=== PATIENT | female | born 1985 ===

== ENCOUNTER 2021-12-27 11:49 | Outpatient (REF) | payer MEDICAID, SELFPAY ==
--- NOTE | ~2021-12-27 | XR_ITS ---
EXAMINATION: KNEE X-RAY CLINICAL INFORMATION: Pain COMPARISON: None TECHNIQUE: 4 views of each knee FINDINGS: Right: There is an intramedullary vanessa and single proximal screw in the visualized proximal tibial shaft. Bone alignment is normal. No acute fracture or dislocation is seen. There are degenerative changes of the tibial spines. There may be mild medial femoral tibial joint space narrowing. Joint spaces are otherwise normal. There is no joint effusion. Left: Bone alignment is normal. No fracture or dislocation is seen. Joint spaces are normal. There is no joint effusion. XR/XR knee RT 4V IMPRESSION: Right: Orthopedic hardware in the proximal tibia. Mild degenerative change at the medial femoral tibial joint and spurring of the tibial spines. Left knee: Unremarkable exam.
--- NOTE | ~2021-12-27 | XR_ITS ---
EXAMINATION: KNEE X-RAY CLINICAL INFORMATION: Pain COMPARISON: None TECHNIQUE: 4 views of each knee FINDINGS: Right: There is an intramedullary vanessa and single proximal screw in the visualized proximal tibial shaft. Bone alignment is normal. No acute fracture or dislocation is seen. There are degenerative changes of the tibial spines. There may be mild medial femoral tibial joint space narrowing. Joint spaces are otherwise normal. There is no joint effusion. Left: Bone alignment is normal. No fracture or dislocation is seen. Joint spaces are normal. There is no joint effusion. XR/XR knee LT 4V IMPRESSION: Right: Orthopedic hardware in the proximal tibia. Mild degenerative change at the medial femoral tibial joint and spurring of the tibial spines. Left knee: Unremarkable exam.
== END 2021-12-27 11:50 | disposition home or self-care (01) ==
LOC: HO.XRAY 11:49
PROVIDERS: PCP Registered Nurse; Visit Provider Registered Nurse
DX: M25.562 Pain in left knee (principal); M25.561 Pain in right knee
CPT/HCPCS: 73564

== ENCOUNTER 2022-06-10 07:05 | Emergency (ER) | payer MEDICAID, SELFPAY ==
[2022-06-10 07:36] VITALS: BP 114/72; PULSE 100; RESP 18; TEMP 36.2; O2SAT 98; BMI 21.1
[2022-06-10 08:29] LABS: Influenza A PCR NEGATIVE (Negative); Influenza B PCR NEGATIVE (Negative); Resp Syncy Virus RNA Qual PCR NEGATIVE (Negative); SARS COV2 PCR INHOUSE POSITIVE (Negative)
--- NOTE | 2022-06-10 09:39 | ED.GENADULT ---
HPI - General Adult General Chief complaint: General Medical Stated complaint: Headache/Back and neck pain Time Seen by Provider: 06/10/22 09:09 History of Present Illness HPI narrative: Patient with 2 complaints 1st complaint is her mom is sick with COVID took a test yesterday and it was positive and the patient over the weekend over the last 2 days has developed mild headache body aches fatigue, no shortness of breath no chest pain no nausea no vomiting Other complaint is chronic back pain for over a year, she does have some tramadol but it is not helping, pain radiates down the right leg with tingling but no loss of sensation no weakness no change to bowel or bladder no IV drug use no fever Related Data Previous Rx's Medication Instructions Recorded nirmatrelvir 300 mg (150 mg See Rx Instructions PO .COMPLEX 06/10/22 x2)-ritonavir 100 mg tablet,dose #30 ea pack(EUA) (Paxlovid) oxycodone 5 mg tablet 5 mg PO Q6H PRN pain #10 tabs 06/10/22 prednisone 20 mg tablet 60 mg PO DAILY 4 days #12 tabs 06/10/22 Allergies Allergy/AdvReac Type Severity Reaction Status Date / Time No Known Allergies Allergy Verified 06/10/22 07:29 [No Known Allergies*] [facility] Past Medical History Source: nursing notes reviewed Social History Social History Advance Directives: No Advance Directives Information Provided: No Physical Exam ED Vital Signs: Vital Signs - 24 hr 06/10/22 07:36 Temperature 97.1 F Pulse Rate 100 Respiratory Rate 18 Blood Pressure 114/72 Pulse Oximetry 98 Oxygen Delivery Method Room Air BMI result Body Mass Index 21.1 General appearance no acute distress comfortable Eyes no redness no discharge The nose no sinus tenderness The pharynx clear no redness swelling or exudate membranes moist Neck is supple Chest clear to auscultation bilateral Heart no murmur Abdomen soft nontender The back had bilateral lower lumbar spinal tenderness, skin of the back was normal, pain is easily reproduced with movement no focal bony tenderness no CVA tenderness Extremities range of motion x4 no edema no calf tenderness or swelling Neuro gait and balance are normal interaction comprehension and expression are normal, motor is 5/5 x4 patient can stand on toes walk on heels, sensation intact and symmetrical Course Course Course Narrative: Patient is positive for COVID, is well-appearing, no respiratory issues no shortness of breath, is prescribed paxlovid For her back pain she already has analgesics, I wrote for a few oxycodone for breakthrough pain and she had no neurologic deficit no change to bowel or bladder no fever no IV drug use and will follow with primary doctor Medical Decision Making Lab Data Labs: Lab Results 06/10/22 Range/Units 07:44 Influenza Type A (PCR) NEGATIVE (Negative) Influenza Type B (PCR) NEGATIVE (Negative) RSV RNA Qual (PCR) NEGATIVE (Negative) SARS-CoV-2 RNA (RT-PCR) POSITIVE A (Negative) Discharge Plan Discharge Clinical Impression: COVID-19, Back pain Patient Disposition: Home, Self-Care Additional Instructions: You tested positive for COVID so we are treating with the medication paxlovid for COVID For your chronic back pain your already taking Motrin and tramadol and a muscle relaxer so I added a few oxycodone which is a stronger narcotic to use sparingly and only if needed, as well as prednisone which is sometimes helpful for pain shooting down the leg to relieve inflammation around the nerve Most important follow with primary doctor for this back pain that is going on a year with pain shooting down the leg as you may need an MRI and a referral to a specialist Return any time any worse condition or any concerns Prescriptions: New prednisone 20 mg tablet 60 mg PO DAILY 4 Days Qty: 12 0RF Paxlovid (EUA) 300 mg (150 mg x 2)-100 mg tablets,dose pack See Rx Instructions .ROUTE .COMPLEX Qty: 30 0RF Rx Instructions: take TWO 150 mg tablets of nirmatrelvir with ONE 100 mg tablet of ritonavir twice daily for 5 days oxycodone 5 mg tablet 5 mg PO Q6H PRN (Reason: pain) Qty: 10 0RF Rx Instructions: Partial Fill upon patient request. Stand Alone Forms: Work/School Release Interventions: ED Discharge Assessment Last Done: 06/10/22 09:56 Discharge Date/Time: 06/10/22 09:57
== END 2022-06-10 09:57 | disposition home or self-care (01) ==
PROVIDERS: Emergency Provider Emergency Medicine; PCP Registered Nurse
DX: U07.1 COVID-19 (principal); R51.9 Headache, unspecified; M54.2 Cervicalgia; M54.50 Low back pain, unspecified; Z79.899 Other long term (current) drug therapy
CPT/HCPCS: 0241U; 99283

== ENCOUNTER 2022-07-30 13:30 | Outpatient (REF) | payer MEDICAID, SELFPAY | END 2022-07-30 13:31 | disposition home or self-care (01) | LOC: HO.XRAY 13:30 | PROVIDERS: PCP Registered Nurse; Visit Provider Family Medicine | DX: Z13.89 Encounter for screening for other disorder (principal) ==

== ENCOUNTER 2022-08-05 06:27 | Outpatient (REF) | payer MEDICAID, SELFPAY ==
--- NOTE | ~2022-08-05 | XR_ITS ---
EXAMINATION: XR CERVICAL SPINE CLINICAL INFORMATION: Neck pain COMPARISON: None available. TECHNIQUE: 5 views of the cervical spine, including bilateral oblique views, were obtained. FINDINGS: Bone alignment is normal. No fracture or dislocation. Normal disc spaces. Neural foramen are patent. Normal prevertebral soft tissues. XR/XR cervical spine 5V IMPRESSION: Unremarkable examination.
== END 2022-08-05 06:28 | disposition home or self-care (01) ==
LOC: HO.XRAY 06:27
PROVIDERS: PCP Family Medicine; Visit Provider Family Medicine
DX: M54.2 Cervicalgia (principal); G89.29 Other chronic pain
CPT/HCPCS: 72050

== ENCOUNTER 2022-12-25 07:51 | Emergency (ER) | payer MEDICAID, SELFPAY ==
--- NOTE | ~2022-12-25 | XR_ITS ---
EXAMINATION: XR HUMERUS, LEFT CLINICAL INFORMATION: Trauma, hit upper arm with cabinet. COMPARISON: None available. TECHNIQUE: AP and lateral views of the left humerus. FINDINGS: The left shoulder and elbow are normal. The glenohumeral and acromioclavicular joints are normal. Bones and soft tissues are unremarkable. No acute fracture or malalignment. No radiopaque foreign body. XR/XR humerus LT IMPRESSION: Normal left humerus.
--- NOTE | ~2022-12-25 | CT_ITS ---
EXAMINATION: CT HEAD WITHOUT CONTRAST CLINICAL INFORMATION: Hit on head with cabinet. Headache. COMPARISON: None available. TECHNIQUE: Contiguous axial imaging was performed from the skull base to vertex without intravenous administration of contrast. This CT examination was performed using dose optimization techniques as appropriate, variously including the following: *Automated exposure control *Adjustment of mA and/or kV according to patient size (this includes techniques or standardized protocols for targeted exams where dose is matched to indication/reason for exam; i.e. extremities or head) *Use of iterative reconstruction technique DLP: 485 mGy-cm FINDINGS: The brain parenchyma has normal attenuation. The river-white matter differentiation is well preserved. No evidence of an acute major vascular territory infarction. No intracranial hemorrhage, extra-axial fluid collection, focal mass effect or midline shift. The ventricles have normal size and configuration; no hydrocephalus. The brainstem and cerebellum have a normal appearance. The cerebellar tonsils are in normal position. No evidence of calvarial fracture. The visualized paranasal sinuses, mastoid air cells and middle ear cavities are well aerated. The partially visualized orbits and globes are unremarkable. The temporomandibular joints are normal. CT/CT head/brain wo IV con IMPRESSION: No acute intracranial pathology.
[2022-12-25 08:16] VITALS: BP 125/86; PULSE 83; RESP 16; TEMP 36.3; O2SAT 100; BMI 20.8
--- NOTE | 2022-12-25 10:08 | PC.NURSE ---
Patient placed in [facility] Room 2. Amb with steady gait. Neuros intact. PERRL. Good CMS to LUE (small bruise noted on upper outer aspect of arm). Appears well.
--- NOTE | 2022-12-25 10:31 | ED_ITS ---
HPI - Head Injury General Chief complaint: Head Injury Stated complaint: Head inj 12/24 Time Seen by Provider: 12/25/22 10:02 History of Present Illness HPI Narrative: 37 year old female with history of chronic back pain on Tramadol presents to ER after injury last night where cabinet fell onto her head and left arm. Reports that she was cooking and reached into cabinet when it fell down on her. Reports one scrape on her forehead that she applied neosporin to. Reports headache, left-sided neck pain, and proximal left upper extremity pain. Reports neck pain with flexion and rotation to the left. Denies any loss of consciousness at time of injury. Denies dizziness, confusion, photophobia. Denies fevers, chills, chest pain, dyspnea or shortness of breath, nausea, vomiting. Denies any blood thinners. MD Complaint: head injury and head pain Onset (ago): day(s) Mechanism of Injury: other (Cabinet fell onto head and left upper extremity. ) Place: home Loss of Consciousness: no Location of injury: frontal (Abrasion to left frontal lobe. ) Other Injuries: laceration Associated symptoms: neck pain Related Data Previous Rx's Medication Instructions Recorded nirmatrelvir 300 mg (150 mg See Rx Instructions PO .COMPLEX 06/10/22 x2)-ritonavir 100 mg tablet,dose #30 ea pack (Paxlovid) oxycodone 5 mg tablet 5 mg PO Q6H PRN pain #10 tabs 06/10/22 prednisone 20 mg tablet 60 mg PO DAILY 4 days #12 tabs 06/10/22 naproxen 500 mg tablet 500 mg PO BID PRN pain #20 tabs 12/25/22 Allergies Allergy/AdvReac Type Severity Reaction Status Date / Time No Known Allergies Allergy Verified 06/10/22 07:29 [No Known Allergies*] Review of Systems Review of Systems: Yes all other systems are reviewed and are negative PMFSH Social History Social History Advance Directives: No Advance Directives Information Provided: No Physical Exam Vital Signs: Vital Signs: Last Vital Signs Temp 97.4 F 12/25/22 08:16 Pulse 83 12/25/22 08:16 Resp 16 12/25/22 08:16 BP 125/86 12/25/22 08:16 Pulse Ox 100 12/25/22 08:16 O2 Del Method Room Air 12/25/22 08:16 BMI result Body Mass Index 20.8 Const: General: cooperative, healthy appearing, comfortable and no acute distress Nutritional Appearance: average body habitus Orientation/consciousness: patient oriented x3 HEENT: Head: Yes abrasion (Abrasion to left frontal lobe. Macerated but not actively bleeding. ), No Echeverria's sign, No contusion and No hematoma Neck: Neck: Yes full ROM Chest: Chest palpation & inspection: localized rib tenderness with anteroposterior compression (Point tenderness to left midaxillary line along 4- 5th ribs. ) Resp: Effort & Inspection: normal respiratory effort and able to speak in complete sentences Auscultation: clear to auscultation bilaterally Cardio: Rate: regular rate Rhythm: regular rhythm Peripheral pulses: radial pulses present Neuro: General: patient oriented x3 Extrem: Left upper extremity: full ROM and shoulder/upper arm (Mild bruising to proximal LUE. TTP along humerus, acromion. No crepitus.) Medical Decision Making Medical Decision Making MDM Narrative: 37 year old female with history of chronic back pain on Tramadol presents after injury last night where cabinet fell onto head and left upper extremity. On physical exam, cranial nerves are intact. There is tenderness to palpation along left humerus and acromion, but no crepitus and she has full active ROM. Some pain with flexion and left rotation of neck but no limitation in ROM. Abrasion to left frontal lobe, macerated but not actively bleeding. Head CT and humerus X-ray show no acute abnormality. Patient is safe to be discharged. She should continue to rest and apply neosporin to the abrasion on her forehead. May continue pain control with Tramadol, Tylenol, ice packs. Differential Diagnosis Differential Diagnoses: The differential diagnosis associated with the presentation includes Skin abrasion, concussion, left humeral fracture, left rib fracture, intracranial hemorrhage. Independent Interpretation I performed an independent interpretation of an: Plain X-Ray and CT Scan Interpretation: I have review the patient's imaging and I am in agreement with the radiologist's readings. CT head without edema or bleed XR humerus without fx or dislocation Radiology Impression Discussion of test interpretation with radiology: I have reviewed the radiologist's reading. Radiologist Impression: EXAMINATION: XR HUMERUS, LEFT CLINICAL INFORMATION: Trauma, hit upper arm with cabinet. COMPARISON: None available.? TECHNIQUE: AP and lateral views of the left humerus. FINDINGS: The left shoulder and elbow are normal. The glenohumeral and acromioclavicular joints are normal. Bones and soft tissues are unremarkable. No acute fracture or malalignment. No radiopaque foreign body.? XR/XR humerus LT IMPRESSION: Normal left humerus. EXAMINATION: CT HEAD WITHOUT CONTRAST CLINICAL INFORMATION: Hit on head with cabinet. Headache.? COMPARISON: None available. TECHNIQUE: Contiguous axial imaging was performed from the skull base to vertex without intravenous administration of contrast. This CT examination was performed using dose optimization techniques as appropriate, variously including the following: *Automated exposure control *Adjustment of mA and/or kV according to patient size (this includes techniques or standardized protocols for targeted exams where dose is matched to indication/reason for exam; i.e. extremities or head) *Use of iterative reconstruction technique DLP: 485 mGy-cm FINDINGS: The brain parenchyma has normal attenuation. The river-white matter differentiation is well preserved. No evidence of an acute major vascular territory infarction. No intracranial hemorrhage, extra-axial fluid collection, focal mass effect or midline shift. The ventricles have normal size and configuration; no hydrocephalus. The brainstem and cerebellum have a normal appearance. The cerebellar tonsils are in normal position. No evidence of calvarial fracture. The visualized paranasal sinuses, mastoid air cells and middle ear cavities are well aerated. The partially visualized orbits and globes are unremarkable. The temporomandibular joints are normal. ? CT/CT head/brain wo IV con IMPRESSION: No acute intracranial pathology. Prescription Management I considered prescription management with: Pain Medication Chronic Conditions Patient?s care impacted by: Other (chronic back pain on chronic opiates) Critical Care Time Critical Care Time Critical Care Time: No Discharge Plan Discharge Clinical Impression: Closed head injury, Contusion of left shoulder Patient Disposition: Home, Self-Care Instructions: Head Injury (ED), Shoulder Pain (ED) Additional Instructions: Your CT scan was normal Your x-ray was normal Rest and use ice to the area several times a day as needed for pain. Take the prescribed anti-inflammatory pain medication as needed. Also recommend Tylenol 975 mg every 8 hours as needed for pain. Follow-up with your doctor as needed. If you develop new or worsening symptoms call 911 or come back to the ER for further evaluation. Prescriptions: New naproxen 500 mg tablet 500 mg PO BID PRN (Reason: pain) Qty: 20 0RF No Action prednisone 20 mg tablet 60 mg PO DAILY 4 Days Qty: 12 0RF Paxlovid 300 mg (150 mg x 2)-100 mg tablets,dose pack See Rx Instructions .ROUTE .COMPLEX Qty: 30 0RF Rx Instructions: take TWO 150 mg tablets of nirmatrelvir with ONE 100 mg tablet of ritonavir twice daily for 5 days oxycodone 5 mg tablet 5 mg PO Q6H PRN (Reason: pain) Qty: 10 0RF Rx Instructions: Partial Fill upon patient request. Referrals: [place] [Primary Care Provider] - Stand Alone Forms: Work/School Release
[2022-12-25 11:26] VITALS: BP 103/78; PULSE 69; RESP 18; O2SAT 99
== END 2022-12-25 11:31 | disposition home or self-care (01) ==
PROVIDERS: Emergency Provider Emergency Medicine
DX: S09.8XXA Other specified injuries of head, initial encounter (principal); S00.81XA Abrasion of other part of head, initial encounter; S40.022A Contusion of left upper arm, initial encounter; W20.8XXA Other cause of strike by thrown, projected or falling object, initial encounter; Y93.89 Activity, other specified; Y92.010 Kitchen of single-family (private) house as the place of occurrence of the external cause; Y99.9 Unspecified external cause status
CPT/HCPCS: 70450; 73060; 99284

== ENCOUNTER 2023-01-10 11:52 | Outpatient (REF) | payer MEDICAID, SELFPAY ==
[2023-01-12 11:20] LABS: BV Int Neg Control Negative (Negative); BV Int Pos Control Positive (Positive)
== END 2023-01-10 11:53 | disposition home or self-care (01) ==
LOC: HO.CHCLNP 11:52
PROVIDERS: Visit Provider Registered Nurse
DX: N94.9 Unspecified condition associated with female genital organs and menstrual cycle (principal)
CPT/HCPCS: 87480; 87510; 87660

== ENCOUNTER 2024-02-06 07:35 | Outpatient (REF) | payer MEDICAID, SELFPAY ==
[2024-02-06 07:59] LABS: MANUAL DIFF FLAG NO
[2024-02-06 08:45] LABS: Basophils Percent Auto 0.8 % (0-2); Eosinophils Absolute Auto 0.1 X10*3/uL (0.0-0.4); Hematocrit 38.3 % (37.0-47.0); Hemoglobin 12.4 g/dl (12.0-16.0); Imm Gran Abs Auto 0.01 X10*3/uL (0.00-0.03); Imm Gran Pct Auto 0.2 % (0.0-0.4); Lymphocytes Absolute Auto 1.4 X10*3/uL (1.2-4.9); Lymphocytes Percent Auto 28.1 % (20-40); Mean Corpuscular HGB Conc 32.4 g/dl (31.0-35.0); Mean Corpuscular Hemoglobin 30.2 pg (27.0-33.0); Mean Corpuscular Volume 93.2 fL (80.0-98.0); Mean Platelet Volume 10.3 fL (9.4-12.3); Monocytes Absolute Auto 0.4 X10*3/uL (0.1-1.2); Monocytes Percent Auto 7.9 % (2-11); Platelet Count 295 X10*3/uL (160-400); Red Blood Count 4.11 X10*6/uL (4.20-5.50); Red Cell Distribution Width 13.1 % (11.0-16.0); White Blood Count 4.9 X10*3/uL (4.8-10.8)
[2024-02-06 08:56] LABS: Estimated Average Glucose 94 mg/dL; Hemoglobin A1c % 4.9 % (<6.0)
[2024-02-06 09:31] LABS: Alanine Aminotransferase 9 U/L (0-31); Albumin Level 4.1 g/dL (3.5-5.0); Alkaline Phosphatase 59 U/L (39-117); Anion Gap 10 (12-20); Aspartate Amino Transferase 17 U/L (5-31); Bilirubin Total 0.7 mg/dL (0.0-1.0); Blood Urea Nitrogen 5 mg/dL (9-16); Calcium 8.6 mg/dL (8.4-10.2); Carbon Dioxide 26 mmol/L (22-29); Chloride 109 mmol/L (96-108); Cholesterol 126 mg/dL (<200); Estimated Glomerular Filt Rate > 60; Glucose Random 84 mg/dL (60-115); HDL Cholesterol 56 mg/dL (>40); Iron 104 mcg/dL (30-160); LDL Cholesterol Calculated 64 mg/dL (<100); Percent Iron Saturation 47 % (15-50); Potassium 4.1 mmol/L (3.3-5.1); Sodium 141 mmol/L (135-145); Total Iron Binding Capacity 219 mcg/dL (228-428); Total Protein 6.9 g/dL (6.5-8.0); Triglycerides 31 mg/dL (<150); Unsaturated Iron Binding 115 ug/dL
[2024-02-06 09:34] LABS: Ferritin 46 ng/mL (10-122); TSH reflex Free T4 0.51 uIU/mL (0.32-4.0); Vitamin D 25-OH Total 5.5 ng/mL (>30)
[2024-02-06 10:53] LABS: CT PCR NOT DETECTED (Not Detect.); NG PCR NOT DETECTED (Not Detect.)
[2024-02-06 11:00] LABS: HBS Num1 46.51 mIU/mL (0-7.99); HBc Num1 0.07 S/CO (0.00-0.79); HBsAGNum1 0.33 S/CO (0.00-0.99); HIV AB/AG Nonreactive (Nonreactive); HIV Num 1 0.04 S/CO (0.00-0.99); Hepatitis B Core Antibody Nonreactive (Nonreactive); ~Hepatitis B Surface Antibody REACTIVE (Nonreactive)
[2024-02-06 11:01] LABS: Hepatitis B Surface Antigen Negative (Negative)
[2024-02-09 13:24] LABS: HCV Log PCR <1.18 NOT DETECTED Log IU/mL (NOT DETECTED); HepC Viral Load <15 NOT DETECTED IU/mL (NOT DETECTED)
[2024-02-09 13:39] LABS: RPR Rapid Plasma Reagin NON-REACTIVE (NON-REACTIVE)
== END 2024-02-06 07:36 | disposition home or self-care (01) ==
LOC: HO.LAB 07:35
PROVIDERS: PCP Registered Nurse; Visit Provider Registered Nurse
DX: Z00.00 Encounter for general adult medical examination without abnormal findings (principal)
CPT/HCPCS: 80053; 80061; 82306; 82728; 83036; 83540; 84443; 85025; 86592; 86704; 86706; 87340; 87389; 87491; 87522; 87591

== ENCOUNTER 2024-03-10 08:46 | Outpatient (AMB) | payer MEDICAID, SELFPAY ==
[2024-03-10 09:26] VITALS: BP 124/74; PULSE 106; O2SAT 98; BMI 21.7
--- NOTE | 2024-03-10 09:26 | MHC.OFFVIS ---
Vital Signs 03/10/24 09:26 Height 5 ft Weight 111 lb BMI 21.7 BP 124/74 Blood Pressure Location Lt brachial Position Sitting Pulse 106 H Pulse Source Pulse Oximeter Pulse Oximetry (%) 98 Oxygen Delivery Method Room Air Intake Visit Reasons: Scoliosis Allergies No Known Allergies [No Known Allergies*] Allergy (Verified 03/10/24 09:27) Medication List - Last Reconciled 03/10/24 by Arcelia Tierney cyclobenzaprine 5 mg PO TID PRN lidocaine 5% 1 patch topical DAILY medroxyprogesterone 150 mg IM [id number] naloxone 4 mg/actuation 4 mg intranasal Q2M PRN tramadol 50 mg PO BID PRN varenicline (Chantix) 1 mg PO BID HPI Comments Details: Ronnie is a very pleasant 38-year-old female who presents to the office today for evaluation management of her chronic back pain Patient endorses upper lower and middle back pain, she reports pain to her ?spine?. Her most significant area of pain is the thoracic spine, where her bra line crosses. She would like to focus on this area today She has been suffering with this pain for 3 years, denies inciting injury, fall, trauma. She attributes to multiple years of physical labor and heavy lifting at work She describes her most significant area of pain to her middle thoracic spine where her bra goes across her back. Pain is worse with repetitive use of her arms, tender to palpation, worse with standing too long or sitting too long Pain today is rated a 7/10, constant Denies numbness tingling weakness of the upper extremities Patient has exhausted conservative therapy including NSAIDs, Tylenol, muscle relaxers, prescription medications. Currently prescribed cyclobenzaprine and tramadol by her primary care doctor which provides her ?some relief ? She denies a history of gabapentin or Lyrica use Was prescribed duloxetine in the past, no longer taking it. States that it upset her stomach. Denies any recent imaging of her thoracic or lumbar spine She completed physical therapy several months ago, states that it provided short-term relief but as soon as physical therapy ended her pain returned Was seeing a chiropractor but this also provided her only short-term relief. In terms of muscle damage condition is described as sharp, shooting, stabbing, aching, pulsing, throbbing, cramping, dull, sore, shooting, jumping, tugging, pulling, tiring, spreading, tight, hot burning, stabbing, tingling Pain is negatively impacting patient's enjoyment of life, general activity, sleep, mood, ability to perform activities of daily living Denies current use of anticoagulants Denies implantable devices, pacemaker defibrillator Currently smoking 1/2 pack a day Endorses current use of daily marijuana [facility] Medical History (Updated 03/10/24 @ 15:47 by Sury Julian, CATERING SALES MANAGER, DIRECTOR OF PLACEMENT) Major depression Review of Systems Const All systems reviewed & are unremarkable except as noted in HPI and below Physical Exam Vital Signs: Last Vital Signs Pulse 106 H 03/10/24 09:26 BP 124/74 03/10/24 09:26 Pulse Ox 98 03/10/24 09:26 Oxygen Delivery Method Room Air 03/10/24 09:26 BMI result Body Mass Index 21.7 General: awake, alert, oriented. Answers questions appropriately. Fully engaged in examination. Skin: warm, dry, intact HEENT: Normocephalic. Hearing intact. Cardiac: External chest normal in appearance. Respiratory: No cough, audible wheezing or stridor. Abdomen: without gross distension. MS: No obvious swelling or deformities. Able to stand on bilateral tiptoes and bilateral heels.? Able to transition from sit to stand unassisted. Ambulates with bilaterally normal heel strike and toe off Tenderness to palpation thoracic vertebrae and paraspinal muscles. Tenderness to palpation middle upper and lower trapezius Tenderness to palpation midline lumbar vertebrae and lumbar paraspinal muscles Neurological: Oriented to person, place, time and situation. Thought process intact. No gait abnormalities appreciated. Psychiatric: Appropriate mood and affect. Good judgment and insight. Results Reviewed Results Reviewed: 08/05/2022 XR/XR cervical spine 5V FINDINGS: Bone alignment is normal. No fracture or dislocation. Normal disc spaces. Neural foramen are patent. Normal prevertebral soft tissues. IMPRESSION: Unremarkable examination. Assessment & Plan Assessment & Plan (1) Thoracic back pain: Code(s): M54.6 - Pain in thoracic spine Category: Medical (2) Myofascial low back pain: Code(s): M54.50 - Low back pain, unspecified Category: Medical (3) Lumbar spondylosis: Code(s): M47.816 - Spondylosis without myelopathy or radiculopathy, lumbar region Category: Medical (4) Scoliosis: Code(s): M41.9 - Scoliosis, unspecified Category: Medical Plan X-rays ordered for evaluation Continue with cyclobenzaprine and tramadol as prescribed by primary care doctor New prescription for gabapentin 100 mg p.o. 3 times daily as needed Patient has exhausted conservative therapy including muscle relaxers, prescription medications, nonsteroidal anti-inflammatory medications, [id number] medications, 10s unit all without improvement of her symptoms Will schedule for fluoroscopy bilateral diagnostic T8 T9-T10 MBB local anesthetic All questions and concerns were answered, patient agrees with the plan. Follow up after injections, sooner if needed Orders: Orders XR thoracic spine 3V Today M54.6 - Pain in thoracic spine XR lumbar spine 4V min Today M54.50 - Low back pain, unspecified Medications: New gabapentin 100 mg PO TID 30 days 90 caps 0RF Coding Level of Care Code New Pt Level 4 (42282) Complex EM visit Add On G2211 Diagnoses Thoracic back pain M54.6 Myofascial low back pain M54.50 Lumbar spondylosis M47.816 Scoliosis M41.9
== END 2024-03-10 09:52 | disposition home or self-care (01) ==
PROVIDERS: PCP Registered Nurse; Visit Provider Registered Nurse Emergency
DX: M54.6 Pain in thoracic spine (principal); M54.50 Low back pain, unspecified; M47.816 Spondylosis without myelopathy or radiculopathy, lumbar region; M41.9 Scoliosis, unspecified
CPT/HCPCS: 99204

== ENCOUNTER → 2024-03-10 08:46 | Outpatient (BNVA) | payer MEDICAID, SELFPAY | PROVIDERS: PCP Registered Nurse; Visit Provider Registered Nurse Emergency | DX: M54.6 Pain in thoracic spine (principal); M54.50 Low back pain, unspecified; M47.816 Spondylosis without myelopathy or radiculopathy, lumbar region; M41.9 Scoliosis, unspecified | CPT/HCPCS: 99212 ==

== ENCOUNTER 2024-03-25 10:21 | Outpatient (REF) | payer MEDICAID, SELFPAY | END 2024-03-25 10:22 | disposition home or self-care (01) | LOC: HO.XRAY 10:21 | PROVIDERS: PCP Registered Nurse; Visit Provider Registered Nurse Emergency | DX: M54.6 Pain in thoracic spine (principal); M54.50 Low back pain, unspecified | CPT/HCPCS: 72072; 72110 ==

== ENCOUNTER 2024-04-07 09:15 | Outpatient (RCR) | payer MEDICAID, SELFPAY ==
--- NOTE | 2024-03-26 11:41 | MHC.OT.EP ---
[address] [phone] Occupational Therapy Plan of Care Patient Name: Ronnie Funes Date of Evaluation: 03/26/24 Diagnosis: Left hand pain Pain Location: Mild resting through thumb Tenderness at left CMC Pain Score: 3 Pain Scale Used: Numeric (0 - 10) Aggravating Factors: Movement, gripping, object manipulation, holding phone/scrolling with left thumb Alleviating Factors: Frequent breaks, rubbing with [place] Assessment: 38 yo female presents with left hand pain for about a month, saw PCP regarding pain and has been referred to OT for further assessment. She is seen this morning for initial eval, reports some relief since changing jobs a week ago, but still has some pain and tenderness through left thumb and base, consistent with overuse. She also reports extensive time spent on phone and has pain w/ gripping and scrolling. We have educated Ronnie on possible causes of pain including overuse at work and with phone, and started her with home program for joint protection, activity modification and home exercise program to strength and promote CMC stability. I anticipate she will do well w/ brief course of hand therapy. Frequency and Duration: The patient will be seen 2x/wk for 2 weeks Short Term Goals: Ind w/ HEP Ind w/ use of heat modalities for comfort Left gross grasp >40lb Pt to report good use of modifications for phone use Retirement Goals: same as above Treatment Plan: Therapeutic Exercise Therapeutic Activity Home Exercise Program Splinting Patient Education Edema Control ADL Training Paraffin Fluidotherapy MHP Joint Mobilization Soft Tissue Mobilization Kinesiotaping Electronically Signed By: Samara Garcia OTR/L CHT Please Sign and return to therapist. Thank you once again for your referral.
--- NOTE | 2024-05-06 11:52 | MHC.OT.DC ---
[address] [phone] F: [phone] Occupational Therapy Discharge Note Patient Name: Ronnie Isidro Funes Provider: BONNIE Arboleda Diagnosis: Left hand pain Date of Evaluation: 03/26/24 Date of Discharge: 05/06/24 Treatments to Date: 3 Discharge Status: Independent with HEP Patient Elected to Stop Discharge Summary: Ronnie was referred to OT w/ left hand pain, likely related to work and leisure (phone) tasks. She was seen for brief course of OT and reporting decreased pain, but has not followed up for further visits. I anticipate she is doing well with home program, we will be discharging from OT at this time. Electronically Signed By: DESIRAE Wolf/Silver SIMONST Reviewed/agree with student documentation: Therapist: Please Sign and return to therapist, thank you for your referral.
== END 2024-05-06 11:52 | disposition home or self-care (01) ==
LOC: HO.OT 09:15
PROVIDERS: PCP Registered Nurse; Visit Provider Registered Nurse
DX: M79.645 Pain in left finger(s) (principal)
CPT/HCPCS: 97035; 97110; 97140; 97165; 97535

== ENCOUNTER 2024-09-28 06:08 | Outpatient (REF) | payer MEDICAID, SELFPAY ==
--- NOTE | ~2024-09-28 | FL_ITS ---
EXAMINATION: FL GUIDANCE ONLY HISTORY: M54.6 - Pain in thoracic spine COMPARISON: None available. TECHNIQUE: Fluoroscopy time: 0.4 minutes. Cumulative Dose: 1.88 mGy. DAP: 0.0224 mGym2 Images: 6. FINDINGS: Multiple fluoroscopic spot films of the thoracic spine in the AP projection demonstrate needles and contrast material in the paraspinal regions bilaterally. FL/FL guidance in treatment room IMPRESSION: Fluoroscopy during procedure. Please see procedure report for additional information. Electronically signed by: Aris Oseguera MD 09/28/2024 01:59 PM EDT
--- OUTSIDE RECORDS SUMMARY | 2024-09-28 06:10 | XMS_ITS | Clinical Summary ---
Author Organization [employer] Address [address] [facility] [address] [place] [address] Care Team Providers Care Benefit Authorizer Name Role Phone Shahida Toledo KAMILA Primary Care Provider [phone] Allergies No known active allergies Medications * This document contains information received from the source organization and may not represent a complete record from that organization. medroxyPROGESTERo ne (Depo-Provera) 150 MG/ML injectionIndicati ons:Encounter for surveillance of injectable contraceptive Inject 1 mL (150 mg) into the shoulder, thigh, or buttocks every 3 (three) months. 1 mL 3 4 Active varenicline (Chantix) 1 MG tabletIndications :Cigarette smoker Take 1 tablet (1 mg) by mouth 2 times daily. Duration: Goal to continue maintenance dose for 3 months 30 tablet 1 4 Active Varenicline Tartrate, Starter, (Chantix Starting Month Nasir) 0.5 MG X 11 & 1 MG X 42 tablet therapy packIndications:C igarette smoker Take 0.5 mg by mouth Once daily for 3 days, THEN 0.5 mg 2 times daily for 4 days, THEN 1 mg 2 times daily for 21 days. 53 each 4 Active cyclobenzaprine (Flexeril) 5 MG tablet TAKE 1 TABLET BY MOUTH THREE TIMES DAILY IN THE MORNING, AT NOON, AND AT BEDTIME NEEDED FOR MUSCLE SPASMS 90 tablet 1 4 Active lidocaine (Lidoderm) 5 % patch APPLY 1 PATCH TOPICALLY LEAVE ON FOR 12 HOURS AND OFF FOR 12 HOURS IF NEEDED FOR PAIN DIRECTED BY MD. 30 patch 11 4 Active traMADol (Ultram) 50 MG tabletIndications :Other chronic pain,Chronic low back pain, unspecified back pain laterality, unspecified whether sciatica present TAKE 1 TABLET BY MOUTH TWICE DAILY IN THE MORNING AND AT BEDTIME NEEDED FOR SEVERE PAIN 45 tablet Active Hospital, Clinic, or Other Facility Administered Medication Ordered Dose Route Frequency Start Date End Date Status medroxyPROGESTERone (Depo-Provera) injection 150 mgIndications:Depo-Pro vera contraceptive status 150 mg IM Every 3 months 05/14/2024 05/09/2025 Active Active Problems Problem Noted Date Diagnosed Date Myofascial low back pain 03/15/2024 Assessment & Plan (03/15/2024 7:20 AM EST): Hx low back pain, scoliosis, and various joint pains and aching Previous med trials: multiple NSAIDs, APAP, muscle relaxants, and gabapentin without success in the past Current medications: Tramadol: 50mg BID PRN. Goal to decrease dose of tramadol with addition of other modalities. Cont 45 tablets for 28 day supply duloxetine 30mg nightly. Reviewed med side effects and safety. Cyclobenzaprine 5mg TID PRN lidocaine patches and topical capsaicin PRN Labs: RON, CRP, sed rate, and RF normal Nov 2021 Differentials include fibromyalgia, radiculopathy, anatomical r/t scoliosis history, or other Discussed goals for pain management and that chronic pain will likely never be fully eliminated, but goal to optimize use pharm and non-pharm options to help achieve functional goals. Reviewed risks/benefits of treatment modalities. 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 -Referral to physical therapy ([facility] in [place]) -Recommended [facility] acupuncture clinic -Referral to 01/19/24 -Referral to Pain Medicine 01/19/24 Vitamin D deficiency 02/16/2024 Overview (02/16/2024): Started on Vit D 50,000 weekly x 8 weeks on 02/16/24 Lab Results Component Value Date [id number] 5.5 (L) 02/06/2024 Anxiety 02/05/2024 Intermittent chest pain 01/25/2024 Assessment & Plan (01/25/2024 7:59 PM EDT): Atypical chest pain EKG unremarkable 01/19/24 Referred to Cards Jan 2024 ED precautions Cigarette smoker 05/01/2023 Assessment & Plan (03/23/2024 8:26 PM EST): -Decreased from 7 cigg/day to 2 cigg/day, excellent improvement Assessment & Plan (01/25/2024 8:10 PM EDT): -Decreased from 10 cigg/day to 6-7 cigg/day, congratulated on progress -Plan to start varenicline Assessment & Plan (08/21/2023 11:51 AM EDT): -Decreased from 10 cigg/day to 4 cigg/day, congratulated on progress -Cont NRT patches and gum PRN. Reviewed med use and safety. Assessment & Plan (05/01/2023 4:38 PM EST): -Smoking 10 cigg/day -Start NRT patches and gum. Reviewed med use and safety. Routine health maintenance 09/04/2022 Overview (01/25/2024): Pap: NILM HPV neg Jan 2022 Mammo: starting at 39y/o Last PE: 01/19/24 OPH: following with [facility] Dental: established with dental care Chronic neck pain 07/30/2022 Overview (01/28/2023): Chronic, exacerbated by stressors. -X-ray cervical spine unremarkable July 2022 -No focal neuro deficit. Assessment & Plan (07/30/2022 10:14 AM EDT): Chronic, exacerbated by stressors. -Will check X-ray. -No focal neuro deficit. MDD (major depressive disorder) 07/30/2022 Long-term current use of opiate analgesic 2021 Overview (01/19/2024): Medication: Tramadol 50mg BID PRN Indication: scoliosis, chronic low back pain, generalized arthralgias Last HONE OPERATOR Agreement: 04/24/23 Tier III (HONE OPERATOR visit every 4 months) Assessment & Plan (01/25/2024 8:07 PM EDT): Hx low back pain, scoliosis, and various joint pains and aching Previous med trials: multiple NSAIDs, APAP, muscle relaxants, and gabapentin without success in the past Current medications: Tramadol: 50mg BID PRN. Goal to decrease dose of tramadol with addition of other modalities. Cont 45 tablets for 28 day supply duloxetine 30mg nightly. Reviewed med side effects and safety. Cyclobenzaprine 5mg TID PRN lidocaine patches and topical capsaicin PRN Labs: RON, CRP, sed rate, and RF normal Nov 2021 Differentials include fibromyalgia, radiculopathy, anatomical r/t scoliosis history, or other Discussed goals for pain management and that chronic pain will likely never be fully eliminated, but goal to optimize use pharm and non-pharm options to help achieve functional goals. Reviewed risks/benefits of treatment modalities. 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 ? Hx low back pain, scoliosis, and various joint pains and aching ? ? Previous med trials: multiple NSAIDs, APAP, muscle relaxants, and gabapentin without success in the past Current medications: ? ? Tramadol: 50mg BID PRN. Goal to decrease dose of tramadol with addition of other modalities. Cont 45 tablets for 28 day supply ? ? duloxetine 30mg nightly. Reviewed med side effects and safety. ? ? Cyclobenzaprine 5mg TID PRN ? ? lidocaine patches and topical capsaicin PRN Labs: RON, CRP, sed rate, and RF normal Nov 2021 Differentials include fibromyalgia, radiculopathy, anatomical r/t scoliosis history, or other Discussed goals for pain management and that chronic pain will likely never be fully eliminated, but goal to optimize use pharm and non-pharm options to help achieve functional goals. Reviewed risks/benefits of treatment modalities. 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 ? Hx low back pain, scoliosis, and various joint pains and aching ? ? Previous med trials: multiple NSAIDs, APAP, muscle relaxants, and gabapentin without success in the past Current medications: ? ? Tramadol: 50mg BID PRN. Goal to decrease dose of tramadol with addition of other modalities. Cont 45 tablets for 28 day supply ? ? duloxetine 30mg nightly. Reviewed med side effects and safety. ? ? Cyclobenzaprine 5mg TID PRN ? ? lidocaine patches and topical capsaicin PRN Labs: RON, CRP, sed rate, and RF normal Nov 2021 Differentials include fibromyalgia, radiculopathy, anatomical r/t scoliosis history, or other Discussed goals for pain management and that chronic pain will likely never be fully eliminated, but goal to optimize use pharm and non-pharm options to help achieve functional goals. Reviewed risks/benefits of treatment modalities. 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 ? Hx low back pain, scoliosis, and various joint pains and aching ? ? Previous med trials: multiple NSAIDs, APAP, muscle relaxants, and gabapentin without success in the past Current medications: ? ? Tramadol: 50mg BID PRN. Goal to decrease dose of tramadol with addition of other modalities. Cont 45 tablets for 28 day supply ? ? duloxetine 30mg nightly. Reviewed med side effects and safety. ? ? lidocaine patches and topical capsaicin PRN Labs: RON, CRP, sed rate, and RF normal Nov 2021 Differentials include fibromyalgia, radiculopathy, anatomical r/t scoliosis history, or other Discussed goals for pain management and that chronic pain will likely never be fully eliminated, but goal to optimize use pharm and non-pharm options to help achieve functional goals. Reviewed risks/benefits of treatment modalities. 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 Menorrhagia 12/27/2021 Overview (01/19/2024): Continues with Depo for menorrhagia / contraception Scoliosis deformity of spine 12/27/2021 Assessment & Plan (01/25/2024 8:07 PM EDT): See Z79.891 Assessment & Plan (05/01/2023 4:38 PM EST): See chronic pain Resolved Problems Problem Noted Date Diagnosed Date Resolved Date Other social stressor 07/30/20222023 Overview (07/30/2022): Seen by behavioral therapist today 07/30/2022. -Referral for care management for help with housing 07/30/2022. Assessment & Plan (07/30/2022 10:13 AM EDT): Seen by behavioral therapist today 07/30/2022. -Referral for care management for help with housing 07/30/2022. Encounters Date Type Department Care Team Description 09/07/2024 9:30 AM EDT Clinical Support [facility] [address] [place] [address] Isabella Tadeo, ARCHANA Other chronic pain (Primary Dx) 09/07/2024 Travel 08/25/2024 3:00 PM EDT Clinical Support [facility] [address] [place] [address] Amaya Thacker, ARCHANA 08/25/2024 Travel 08/19/2024 Telephone [facility] [address] [place] [address] Shahida Toledo FNP Appointment Request 08/18/2024 Telephone [facility] [address] [place] [address] Shahida Toledo FNP No Show 08/18/2024 Refill [facility] [address] [place] [address] Shahida Toledo FNP Other chronic pain; Chronic low back pain, unspecified back pain laterality, unspecified whether sciatica present 08/17/2024 Telephone [facility] [address] [place] [address] Shahida Toledo FNP 08/06/2024 Travel 08/06/2024 Telephone [facility] [address] [place] [address] Isabella Tadeo, ARCHANA 08/05/2024 Telephone [facility] [address] [place] [address] Shahida Toledo FNP May recall 08/05/2024 Travel 08/05/2024 Telephone [facility] [address] [place] [address] Shahida Toledo FNP appointment cx 07/02/2024 Population Health Risk Score [facility] () Department [address] [place] [id number] Provider, Population Health Generic 06/30/2024 Travel 06/30/2024 Telephone [facility] [address] [place] [address] Isabella Tadeo, ARCHANA 06/30/2024 Telephone [facility] [address] [place] [address] Shahida Toledo FNP Appointment Request 06/28/2024 Refill [facility] [address] [place] [address] Shahida Toledo FNP Other chronic pain; Chronic low back pain, unspecified back pain laterality, unspecified whether sciatica present from Last 3 Months Immunizations Immunization Administration Dates Next Due Influenza, seasonal, injectable, preservative fr ee 01/19/2024 Pfizer Covid-19 Vaccine 12+ 01/19/2024 Pfizer Covid-19 Vaccine 12+ Bivalent 09/05/2022 Pneumococcal Conjugate PCV 20 01/19/2024 Tdap 09/05/2022 Family History Medical History Relation Name Comments Diabetes Father Heart attack Maternal Grandmother Diabetes Mother Hypertension Mother Osteoporosis Mother Rheum arthritis Mother Relation Name Status Comments Father Maternal Grandmother Mother Social History Tobacco Use Types Packs/Day Years Used Date Smoking Tobacco: Every Day Cigarettes Smokeless Tobacco: Never Tobacco Cessation:Ready to Q uit: Not Asked; Counseling Given: Not Answered Alcohol Use Standard Drinks/Week Comments Not Currently 0 (1 standard drink = 0.6 oz pur e alcohol) Depression Answer Date Recorded Patient Health Questionnaire-9 Score 11 02/05/2024 Patient Health Questionnaire-9 Score 11 02/05/2024 Last PHQ-9: Questionnaire Data Not on file 1 Housing Stability Answer Date Recorded What is your housing situation today? I have jessenia vargas 01/12/[address] you li ve. Do you have problems with any of the following? None of the above 01/12/2024 Food Insecurity Answer Date Recorded Within the past 12 months, y ou worried that your food would run out before you got money to buy more: Never True 01/12/2024 Within the past 12 months,th e food you bought just didn't last and you didn't have enough money to get more: Never True Transportation Answer Date Recorded In the past 12 months, has l ack of transportation kept you from medical appts, meetings, work or from getting things needed for daily living? No 01/12/2024 Utilities Answer Date Recorded In the past 12 months, has t he electric, gas, oil or water company threatened to shut off services in your home? Yes 01/19/2024 Depression Answer Date Recorded Patient Health Questionnaire-2 Score 3 02/05/2024 Internet Access Answer Date Recorded Internet Access Q1 Yes 01/12/2024 Internet Access Q2 Not on file 01/12/2024 Comments Unknown Sex and Gender Information Value Date Recorded Sex Assigned at Female 02/18/2022 10:19 AM EDT Legal Sex Female 10:19 AM EDT Gender Identity Female 02/18/2022 10:19 AM EDT Sexual Orientation Straight 02/18/2022 10 :19 AM EDT Last Filed Vital Signs Vital Sign Reading Time Taken Comments Blood Pressure 124/84 05/14/2024 9:30 AM EST Pulse 106 03/15/2024 9:21 AM EST Temperature 37.1 ??C (98.7 ??F) 03/15/2024 9:21 AM ES T Respiratory Rate 20 03/15/2024 9:21 AM EST Oxygen Saturation 98% 03/15/2024 9:21 AM EST Inhaled Oxygen Concentration - - Weight 48.8 kg (107 lb 8 oz) 03/15/2024 9:21 AM EST Height 153 cm (5' 0.25 ) 03/15/2024 9:21 AM EST Body Mass Index 20.82 03/15/2024 9:21 AM EST Plan of Treatment Upcoming Encounters Date Type Department Care Team (Late st Contact Info) Description 10/29/2024 8:30 AM EDT Office Visit [facility] [address] [place] [address] Shahida Toledo FNP [address] [place] [address] 11/12/2024 9:30 AM EDT Clinical Support [facility] [address] [place] [address] 12/23/2024 9:00 AM EDT Clinical Support [facility] [address] [place] [address] Isabella Tadeo, RN [address] [place] [address] Health Maintenance Due Date Last Done Comments Disability Screening 1984 Mammogram 2024 Depression Monitoring 08/05/2024 02/05/2024, 024 SDOH Screening 01/11/2025 01/12/2024 Alcohol/Substance Use Screening 01/18/2025 01/19/2024 Pap Smear 01/23/2025 01/23/2022 Family Planning (PISQ) 02/26/2025 02/27/2024 Tobacco Screening 03/15/2025 03/15/2024 Cervical Cancer Screening 01/23/2027 HPV/Cotest 01/23/2027 01/23/2022 Lipid Panel 02/05/2029 02/06/2024 DTaP/Tdap/Td Vaccines (2 - Td or Tdap) 09/05/2032 09/05/2022 Zoster Vaccines (1 of 2) 2034 RSV Patients and Patients Aged 60 years or older (1 - 1-dose 75+ series) 07/17/2059 COVID-19 Vaccine Completed 01/19/2024, , 11/30/2021, Additional history exists Influenza Vaccine Completed 01/19/2024 Pneumococcal Vaccine: Pediatrics (0 to 5 Years) and At-Risk Patients (6 to 49) Years) Completed 01/19/2024 HIV Screening Completed 02/06/2024, 01/23/2022 Hepatitis C Screening Completed 02/06/2024, 022 HIB Vaccines Aged Out No longer eligi ble based on patient's age to complete this topic HPV Vaccines Aged Out No longer eligi ble based on patient's age to complete this topic Hepatitis A Vaccines Aged Out No long er eligible based on patient's age to complete this topic Hepatitis B Vaccines Discontinued IPV Vaccines Aged Out No longer eligi ble based on patient's age to complete this topic Meningococcal B Vaccine Aged Out No l onger eligible based on patient's age to complete this topic Meningococcal Vaccine Aged Out No christine lesley eligible based on patient's age to complete this topic RSV under 20 months Aged Out No longe r eligible based on patient's age to complete this topic Rotavirus Vaccines Aged Out No longer eligible based on patient's age to complete this topic Procedures Procedure Name Priority Date/Time Associated Diagnosis Comments POCT LINETTE-14 URINE DRUG SCREEN Routine 09/07/2024 9:44 AM EDT Other chronic pain HEPATITIS C VIRAL RNA, QUANTITATIVE, REAL-TIME PCR Routine 02/06/2024 7:57 AM EDT Encounter for routine history and physical examination of adult HIV 1/2 ANTIGEN/ANTIBODY, FOURTH GENERATION W/RFL Routine 02/06/2024 7:57 AM EDT Encounter for routine history and physical examination of adult LIPID PANEL, STANDARD Routine 02/06/2024 7:57 AM EDT Encounter for routine history and physical examination of adult THINPREP IMAGING PAP AND HPV MRNA E6/E7 WITH REFLEX TO HPV 16,18/45 Routine 01/23/2022 2:06 PM EDT from Last 3 Months or Most Recently Relevant to Health Maintenance Results * POCT LINETTE-14 Urine Drug Screen (09/07/2024 9:44 AM EDT) Pathologist [facility] Positive Urine Urine specimen obtained by clean catch procedure / Unknown 09/07/2024 9:44 AM EDT Narrative Isabella Tadeo RN - 09/07/2024 9:44 AM EDT Lot# [id number] Exp: 12-08-25 [facility] POINT OF CARE TEST ENTER/EDIT ORDERABLES Final Result * Hepatitis C Viral RNA, Quantitative, Real-Time PCR (02/06/2024 7:57 AM EDT) [facility] Hepatitis C Viral Load <15 NOT DETECTED NOT DETECTED IU/mL [facility] HCV Log PCR <1.18 NOT DETECTED NOT DETECTED Log IU/mL [facility] Comment:For additional infor delisa, please refer tohttp://education.PeerMe/faq/WMU93l9(This link is being provided for informational/educational purposes only.)THIS TEST WAS PERFORMED AT:[facility] [place] [phone] SALAZAR MD Blood 02/06/2024 7:57 AM EDT 02/06/2024 7:57 AM EDT Shahida Toledo [facility] LAB BLOOD ORDERABLES Final Res ult [facility] [address] [place] [phone] * HIV-1/2 Antigen and Antibodies, Fourth Generation, with Reflexes (02/06/2024 7:57 AM EDT) [facility] HIV AB/AG Nonreactive Nonreactive [facility] Comment:HIV-1 p24 Ag and/or HIV-1/HIV-2 Ab not detected.A test result that is nonreactive does not exclude thepossibility of exposure to or infection with HIV-1 and/orHIV-2. Nonreactive results in this assay for individualswith prior exposure to HIV-1 and/or HIV-2 may be due toantigen and antibody levels that are below the limit ofdetection of this assay.The [employer] HIV Ag/Ab Combo assay result andsupplemental assay results should be interpreted inconjunction with the patient's clinical presentation,history and other laboratory results. If the results areinconsistent with clinical evidence, additional testing issuggested to confirm the result. Blood Venous blood specimen / Unknown 02/06/2024 7:57 AM EDT 02/06/2024 7:57 AM EDT us Shahida Toledo DIVID[facility] CL[facility] LAB BLOOD ORDERABLES Final Res ult [facility] [address] [place] [address] [phone] * Lipid Panel, Standard (02/06/2024 7:57 AM EDT) Triglycerides 31 <150 mg/dL [facility] Comment:Desirable Triglyceri de: less than 150 mg/dLBorderline High Triglyceride 150-199 mg/dLHigh Triglyceride: 200-499 mg/dLVery High Triglyceride: greater than or equal to 5OO mg/dL Cholesterol 126 <200 mg/dL [facility] Comment:Desirable Cholestero l: less than 200 mg/dLBorderline High Cholesterol: 200-239 mg/dLHigh Cholesterol: greater than 239 mg/dL LDL Cholesterol Calculated 64 <100 mg/dL [facility] Comment:Desirable LDL: less than 100 mg/dLNear Optimal/Above Optimal LDL: 110- 129 mg/dLBorderline High LDL: 130-159 mg/dLHigh LDL: 160-189 mg/dLVery High LDL: greater than or equal to 190 mg/dL HDL Cholesterol 56 >40 mg/dL [facility] Comment:Desirable HDL: great er than 40 mg/dL Note: This HDL assay may give artificially low results in patients with liver disease. Blood Venous blood specimen / Unknown 02/06/2024 7:57 AM EDT 02/06/2024 7:57 AM EDT us Shahida Toledo [facility] BLOOD ORDERABLES Final Res ult [facility] [address] [place] [address] [phone] * THINPREP TIS PAP AND HPV mRNA E6/E7 WITH REFLEX TO HPV 16,18/45 (01/23/2022 2:06 PM EDT) Clinical Information: None given [facility] COMMENT SEE COMMENT [facility] Comment: EXPLANATORY NOTE: ? The Pap is a screening test for cervical cancer. It is ?? not a diagnostic test and is subject to false negative ?? and false positive results. It is most reliable when a ?? satisfactory sample, regularly obtained, is submitted ?? with relevant clinical findings and history, and when ?? the Pap result is evaluated along with historic and ?? current clinical information. ?? COMMENT: This Pap test has been evaluated with computer assisted technology. [facility] Lion Trainer : SEE COMMENT [facility] Comment: [facility], CT(ASCP) CT screening location: [address] ??[id number] HPV nRNA E6/E7 Not Detected Not Detected [facility] Comment: Methodology: Institution Librarian-Mediated Amplification This assay detects E6/E7 viral messenger RNA (mRNA) from 14 high-risk HPV types (16,18,31,33,35,39,45,51,52,56,58,59,66,68). ? Cervical sources are required for HPV testing. If a vaginal source from a patient who has had a total hysterectomy with removal of cervix was ?? submitted, please contact the testing laboratory for alternative testing options. ?? For additional information, please refer to http://education.PeerMe/faq/ALO575m2 (This link if provided for information/ educational purposes only.) Infection Fungal organisms morphologically consistent with La spp. [facility] Interpretation/R esult: Negative for intraepithelial lesion or malignancy. [facility] LMP: NONE GIVEN [facility] Prev. BX: NONE GIVEN [facility] Prev. PAP: NONE GIVEN [facility] SOURCE: None given [facility] Statement Of Adequacy: SEE COMMENT [facility] Comment: Satisfactory for evaluation. Endocervical/transformation zone component present. 01/23/2022 2:06 PM EDT Shahida TREVI[facility] LAB PATHOLOGY ORDERABLES Final Result [facility] from Last 3 Months or Most Recently Relevant to Health Maintenance Insurance [employer] Care Teams Benefit Authorizer Relationship Specialty Start Date End Date Shahida Toledo FNP [address] [place] [id number] PCP - General Family Medicine 12/26/21
== END 2024-09-28 06:09 | disposition home or self-care (01) ==
LOC: CF 06:08
PROVIDERS: Visit Provider Anesthesiology
DX: M54.6 Pain in thoracic spine (principal); M47.814 Spondylosis without myelopathy or radiculopathy, thoracic region
CPT/HCPCS: 64490; 64491; J2003; J2795; Q9967

== ENCOUNTER 2024-09-28 10:54 | Outpatient (AMB) | payer MEDICAID, SELFPAY ==
[2024-09-28 11:04] VITALS: BP 119/77; PULSE 98; RESP 20; O2SAT 100
--- NOTE | 2024-09-28 11:04 | MHC.OFFVIS ---
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: No Allergies No Known Allergies [No Known Allergies*] Allergy (Verified 09/28/24 11:04) [facility] Medical History (Updated 09/28/24 @ 16:17 by Brant Concepcion MD) Major depression Physical Exam Vital Signs: Last Vital Signs Pulse 98 09/28/24 11:04 Resp 20 09/28/24 11:04 BP 119/77 09/28/24 11:04 Pulse Ox 100 09/28/24 11:04 Oxygen Delivery Method Room Air 09/28/24 11:04 Assessment & Plan Assessment & Plan (1) Spondylosis of thoracic spine: Code(s): M47.814 - Spondylosis without myelopathy or radiculopathy, thoracic region Category: Medical Plan Diagnostic medial branch block T3-T4 T5 bilateral.? ? ?Informed consent was explained to the patient. All questions were explained and? answered.? The patient was taken inside the operating room where she was positioned prone on the operating table. Time-out was performed delineating correct site, side, the nature of the procedure, patient's allergy, . All operating room staff was participating in OR time-out procedure. ? ? The upper back was prepped with ChloraPrep and draped with sterile towels.? C-arm was brought over the operating field and the upper back of the patient was palpated under C-arm guidance. She reported most severe pain in the projection of the T4 vertebra. T3-T4 T5 medial branch blocks were chosen as the target of the injection. Sq picture of T3-T4 T5 vertebra were delineated on the screen.? Point of interest were delineated as most superior and most lateral point of the transverse process of the each vertebra as above bilaterally. ? The projection of the point of interest to the skin were injected with the small amount of local anesthetic lidocaine 2% mixed with ropivacaine 0.5% 1-1 approcimately 1 cc.? After that 22 gauge 3.5 inch spinal needle was driven sequentially to the points of interest in tunnel vision fashion. After needles gently contacted the bone at the point of interests the needle was injected with small amount of the contrast.? The injection of the contrast did not demonstrate any intravascular , intrathecal or pleural spread of the contrast.? After that injection of the? ropivacaine 0.5%-1cc was performed at each needle location. ?after that the needles were removed and Bandaids were applied. ? Upon completion of the injections? needle was? removed and sterile Band-Aids were applied.? The patient tolerated procedure very well. Orders: Orders FL guidance in treatment room Today M54.6 - Pain in thoracic spine Coding Level of Care Code Procedure Only Diagnoses Spondylosis of thoracic spine M47.814
== END 2024-09-28 12:56 | disposition home or self-care (01) ==
LOC: HO.PMCPRC 10:54
PROVIDERS: PCP Registered Nurse; Visit Provider Anesthesiology
DX: M47.814 Spondylosis without myelopathy or radiculopathy, thoracic region (principal)
CPT/HCPCS: 64490; 64491

== ENCOUNTER 2024-10-01 10:50 | Outpatient (AMB) | payer MEDICAID, SELFPAY ==
[2024-10-01 10:52] VITALS: BP 115/70; PULSE 88; RESP 15; O2SAT 100; BMI 20.5
--- NOTE | 2024-10-01 10:52 | A.OFFVIS_ITS ---
Vital Signs 10/01/24 10:52 Height 5 ft Weight 105 lb BMI 20.5 BP 115/70 Blood Pressure Location Lt brachial Position Sitting Respiration 15 Pulse 88 Pulse Source Pulse Oximeter Pulse Oximetry (%) 100 Oxygen Delivery Method Room Air Intake Visit Reasons: BILATERAL DIAGNOSTIC T8, T9, T10 MBB Bundle Breaker Required: No Accompanied by: lilly Allergies No Known Allergies [No Known Allergies*] Allergy (Verified 10/01/24 10:56) HPI Comments Details: The patient is a 39-year-old female presenting with pain management concerns following bilateral diagnostic T3-T4 T5 MBBs intended for evaluating and treating chronic thoracic pain. Post-procedure, she experienced complete relief from thoracic and associated neck pain for a duration of six hours. This relief was followed by a period of approximately 24 hours where she reported substantial, albeit diminishing, relief estimated around 90%. Following the onset of pain after 24 hours, the patient reported a return of pain symptoms. 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 The patient has expressed interest in exploring further pain management options to achieve lasting relief. 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 - Affect: Anxiety reduction during pain relief periods - Analgesia: Currently experiencing return of pain post-block effect - Activities of Daily Living: Improved function during relief period; interest in maintaining this - Aberrant Drug Related Behaviors: NONE FORMERLY [facility], [facility] Medical History (Updated 09/28/24 @ 16:17 by Brant Concepcion MD) Major depression Review of Systems Const Details: - Musculoskeletal: Reports temporary relief from thoracic and neck pain - Neurological: Denies additional neurological complaints during relief period Physical Exam Vital Signs: Last Vital Signs Pulse 88 10/01/24 10:52 Resp 15 10/01/24 10:52 BP 115/70 10/01/24 10:52 Pulse Ox 100 10/01/24 10:52 Oxygen Delivery Method Room Air 10/01/24 10:52 BMI result Body Mass Index 20.5 General: awake, alert, oriented. Answers questions appropriately. Fully engaged in examination. Skin: warm, dry, intact HEENT: Normocephalic. Hearing intact. Cardiac: External chest normal in appearance. Respiratory: No cough, audible wheezing or stridor. Abdomen: without gross distension. MS: No obvious swelling or deformities. Able to transition from sit to stand unassisted. Ambulates with bilaterally normal heel strike and toe off Tenderness to palpation thoracic vertebrae and paraspinal muscles. Neurological: Oriented to person, place, time and situation. Thought process intact. No gait abnormalities appreciated. Psychiatric: Appropriate mood and affect. Good judgment and insight. Results Reviewed Results Reviewed: 08/05/2022 XR/XR cervical spine 5V FINDINGS: Bone alignment is normal. No fracture or dislocation. Normal disc spaces. Neural foramen are patent. Normal prevertebral soft tissues. IMPRESSION: Unremarkable examination. Assessment & Plan Assessment & Plan (1) Thoracic back pain: Code(s): M54.6 - Pain in thoracic spine Category: Medical (2) Myofascial low back pain: Code(s): M54.50 - Low back pain, unspecified Category: Medical (3) Lumbar spondylosis: Code(s): M47.816 - Spondylosis without myelopathy or radiculopathy, lumbar region Category: Medical (4) Scoliosis: Code(s): M41.9 - Scoliosis, unspecified Category: Medical Plan The focus is on transitioning to a Sprint temporary peripheral nerve stimulator intervention to provide extended relief for the patient's thoracic pain.The patient was informed of the process, benefits, and expectations, including the approximate at least nine-month pain relief duration post-trial. They agreed to proceed post-insurance approval. Continued monitoring and support are planned through communication with the representing company. I discussed with the patient the possible shift from diagnostic to more prolonged pain management strategies following the initial relief from thoracic medial branch block. We conversed about the potential benefits of a temporary peripheral nerve stimulator, which could provide further relief by interrupting pain signals. Benefits, including increased duration of relief and reduced pain- related anxiety and functional limitations, were emphasized. Alternatives and risks, such as short-term use, and the potential for discontinuation at the patient's discretion were also thoroughly reviewed. The patient expressed interest and agreement to pursue this option post-approval from the insurance company. I emphasized the importance of ongoing communication for successful pain management and will coordinate scheduling upon insurance confirmation. Will schedule for fluoroscopy guided bilateral T5 sprint PNS with local anesthetic. Patient was informed and verbally consented to the use of an ambient scribe for clinic note documentation during this visit. Patient Instructions: - Await insurance approval for the peripheral nerve stimulator trial - Review information on the procedure via provided website and materials - Prepare for a potential schedule of weekly follow-ups during trial period - Contact provided company data entry representative for any questions - Report any intolerable sensations or issues experienced during the trial immediately Coding Level of Care Code Est Pt Level 3 (45408) Complex EM visit Add On G2211 Diagnoses Thoracic back pain M54.6 Myofascial low back pain M54.50 Lumbar spondylosis M47.816 Scoliosis M41.9
--- OUTSIDE RECORDS SUMMARY | 2024-10-01 11:54 | XMS_ITS | Clinical Summary ---
Author Organization [employer] Address [address] [place] [address] Care Team Providers Care Printing Screen Assembler Name Role Phone Shahida Toledo KAMILA Primary Care Provider [phone] Allergies No known active allergies Medications * [...] office -Referral to physical therapy ([facility] in [place]) -Recommended [facility] acupuncture clinic -Referral to 01/19/24 -Referral to Pain Medicine 01/19/24 Vitamin D deficiency 02/16/2024 Overview (02/16/2024): Started on Vit D 50,000 weekly x 8 weeks on 02/16/24 Lab Results Component Value Date [id number] 5.5 (L) 02/06/2024 Anxiety 02/05/2024 Intermittent chest [...] 39y/o Last PE: 01/19/24 OPH: following with [facility] Dental: established with dental care [...] chronic low back pain, generalized arthralgias Last DIRECTOR PHARMACEUTICAL Agreement: 04/24/23 Tier III (DIRECTOR PHARMACEUTICAL visit every 4 months) Assessment & Plan [...] office -Referral to physical therapy ([facility] in [place]) -Recommended [facility] acupuncture clinic -Referral to 01/19/24 -Referral to [...] office -Referral to physical therapy ([facility] in [place]) -Recommended [facility] acupuncture clinic Assessment & Plan (01/28/2023 8:34 [...] dental office -Referral to physical therapy -Recommended [facility] acupuncture clinic Assessment & Plan (09/08/2022 6:55 [...] to new PT location -Pt will trial [facility] acupuncture clinic (recommended at least 3 sessions) [...] Description 09/07/2024 9:30 AM EDT Clinical Support [facility] [address] [place] [address] Isabella Tadeo, ARCHANA Other chronic pain (Primary Dx) 09/07/2024 Travel 08/25/2024 3:00 PM EDT Clinical Support [facility] [address] [place] [address] Amaya Thacker, ARCHANA 08/25/2024 Travel 08/19/2024 Telephone [facility] [address] [place] [address] Shahida Toledo FNP Appointment Request 08/18/2024 Telephone [facility] [address] [place] [address] Shahida Toledo FNP No Show 08/18/2024 Refill [facility] [address] [place] [address] Shahida Toledo FNP Other chronic pain; Chronic low back pain, unspecified back pain laterality, unspecified whether sciatica present 08/17/2024 Telephone [facility] [address] [place] [address] Shahida Toledo FNP 08/06/2024 Travel 08/06/2024 Telephone [facility] [address], [place] [phone] Isabella Tadeo RN 08/05/2024 Telephone [facility] [address], [place] [phone] Shahida Toledo FNP May recall 08/05/2024 Travel 08/05/2024 Telephone [facility] [address], [place] [phone] Shahida Toledo FNP appointment cx 07/02/2024 Population Health Risk Score [facility] () Department [address] [place] [phone] Provider, Population Health Generic from Last 3 Months Immunizations Immunization Administration [...] Description 10/29/2024 8:30 AM EDT Office Visit [facility] [address] [place], [place] [phone] Shahida Toledo FNP [address] [place] [address] 11/12/2024 9:30 AM EDT Clinical Support [facility] [address] [place] [address] 12/23/2024 9:00 AM EDT Clinical Support [facility] [address] [place] [address] Isabella Tadeo, RN [address] [place] [address] Health Maintenance Due Date Last Done Comments [...] Urine Drug Screen (09/07/2024 9:44 AM EDT) [facility] Positive Urine Urine specimen obtained by clean catch procedure / Unknown 09/07/2024 9:44 AM EDT Isabella Herzog, ARCHANA - 09/07/2024 9:44 AM EDT Lot# [id number] Exp: 12-08-25 Shahida TREVIÑO POINT OF CARE TEST ENTER/EDIT ORDERABLES Final Result * Hepatitis C Viral RNA, Quantitative, Real-Time PCR (02/06/2024 7:57 AM EDT) Pathologist [facility] Hepatitis C Viral Load <15 NOT DETECTED NOT DETECTED IU/mL [facility] HCV Log PCR <1.18 NOT DETECTED NOT DETECTED Log IU/mL [facility] Comment:For additional infor delisa, please refer tohttp://education.556 Fitness/faq/PLX22h3(This link is being provided for informational/educational purposes only.)THIS TEST WAS PERFORMED AT:[facility] [place] [phone] SALAZAR MD Blood 02/06/2024 7:57 AM EDT 02/06/2024 7:57 AM EDT Shahida Toledo [facility] BLOOD ORDERABLES Final Res ult [facility] [address] [place] [address] [phone] * HIV-1/2 Antigen and Antibodies, Fourth Generation, with Reflexes (02/06/2024 7:57 AM EDT) Pathologist [facility] HIV AB/AG Nonreactive Nonreactive [facility] Comment:HIV-1 p24 Ag and/or HIV-1/HIV-2 Ab not detected.A test result that is nonreactive does not exclude thepossibility of exposure to or infection with HIV-1 and/orHIV-2. Nonreactive results in this assay for individualswith prior exposure to HIV-1 and/or HIV-2 may be due toantigen and antibody levels that are below the limit ofdetection of this assay.The [facility] HIV Ag/Ab Combo assay result andsupplemental assay results should be interpreted inconjunction with the patient's clinical presentation,history and other laboratory results. If the results areinconsistent with clinical evidence, additional testing issuggested to confirm the result. Blood Venous blood specimen / Unknown 02/06/2024 7:57 AM EDT 02/06/2024 7:57 AM EDT us Shahida Toledo [facility] BLOOD ORDERABLES Final Res ult Performing Organization Address [facility] Co de Phone Number [facility] [address] [place] [phone] * Lipid Panel, Standard (02/06/2024 7:57 AM EDT) Triglycerides 31 <150 mg/dL [facility] Comment:Desirable Triglyceri de: less than 150 mg/dLBorderline High Triglyceride 150-199 mg/dLHigh Triglyceride: 200-499 mg/dLVery High Triglyceride: greater than or equal to 5OO mg/dL Cholesterol 126 <200 mg/dL [facility] Comment:Desirable Cholestero l: less than 200 mg/dLBorderline High Cholesterol: 200-239 mg/dLHigh Cholesterol: greater than 239 mg/dL LDL Cholesterol Calculated 64 <100 mg/dL [facility] Comment:Desirable LDL: less than 100 mg/dLNear Optimal/Above Optimal LDL: 110- 129 mg/dLBorderline High LDL: 130-159 mg/dLHigh LDL: 160-189 mg/dLVery High LDL: greater than or equal to 190 mg/dL HDL Cholesterol 56 >40 mg/dL [facility] Comment:Desirable HDL: great er than 40 mg/dL Note: This HDL assay may give artificially low results in patients with liver disease. Blood Venous blood specimen / Unknown 02/06/2024 7:57 AM EDT 02/06/2024 7:57 AM EDT us Shahida Toledo [facility] BLOOD ORDERABLES Final Res ult Performing Organization Address [facility]/ZIP Co de Phone Number [facility] [address] [place] [address] [phone] * THINPREP TIS PAP AND HPV [...] with computer assisted technology. CONVERTED LEGACY LABS Materials Development Engineer : SEE COMMENT [facility]GAC[facility]S Comment: [facility], [place](ASCP) CT screening location: [address] ??[phone] HPV nRNA E6/E7 Not Detected Not Detected [facility] Comment: Methodology: [place] Laborer-Mediated Amplification This assay detects E6/E7 viral messenger RNA (mRNA) from 14 high-risk HPV types (16,18,31,33,35,39,45,51,52,56,58,59,66,68). ? Cervical sources are required for HPV testing. If a vaginal source from a patient who has had a total hysterectomy with removal of cervix was ?? submitted, please contact the testing laboratory for alternative testing options. ?? For additional information, please refer to http://education.556 Fitness/faq/OLG318o9 (This link if provided for information/ educational [...] component present. 01/23/2022 2:06 PM EDT Shahida Toledo [employer] LAB PATHOLOGY ORDERABLES Final Result CONVERTED LEGACY LABS from Last 3 Months or Most Recently Relevant to Health Maintenance Insurance Care Teams Printing Screen Assembler Relationship Specialty Start Date End Date Shahida Toledo FNP [address] [place] [phone] PCP - General Family Medicine 12/26/21
== END 2024-10-01 11:06 | disposition home or self-care (01) ==
LOC: HO.PMC 10:51
PROVIDERS: PCP Registered Nurse; Visit Provider Registered Nurse Emergency
DX: M54.6 Pain in thoracic spine (principal); M54.50 Low back pain, unspecified; M47.816 Spondylosis without myelopathy or radiculopathy, lumbar region; M41.9 Scoliosis, unspecified
CPT/HCPCS: 99213

== ENCOUNTER → 2024-10-01 10:50 | Outpatient (BNVA) | payer MEDICAID, SELFPAY | PROVIDERS: PCP Registered Nurse; Visit Provider Registered Nurse Emergency | DX: M47.814 Spondylosis without myelopathy or radiculopathy, thoracic region (principal); M54.6 Pain in thoracic spine; M54.50 Low back pain, unspecified; M41.9 Scoliosis, unspecified | CPT/HCPCS: 99212 ==

== ENCOUNTER 2024-11-12 09:29 | Outpatient (REF) | payer MEDICAID, SELFPAY ==
--- OUTSIDE RECORDS SUMMARY | 2024-11-12 09:42 | XMS_ITS | Clinical Summary ---
Author Organization [employer] Address [address] [facility] [address] [place] [address] Care Team Providers Care Review Assistant Name Role Phone Shahida Toledo KAMILA Primary Care Provider Allergies No known active allergies Medications * This document contains information received from the source organization and may not represent a complete record from that organization. varenicline (Chantix) 1 MG tabletIndication s:Cigarette smoker Take 1 tablet (1 mg) by mouth 2 times daily. Duration: Goal to continue maintenance dose for 3 months 30 tablet 1 024 Active Varenicline Tartrate, Starter, (Chantix Starting Month Nasir) 0.5 MG X 11 & 1 MG X 42 tablet therapy packIndications: Cigarette smoker Take 0.5 mg by mouth Once daily for 3 days, THEN 0.5 mg 2 times daily for 4 days, THEN 1 mg 2 times daily for 21 days. 53 each 024 Active cyclobenzaprine (Flexeril) 5 MG tablet TAKE 1 TABLET BY MOUTH THREE TIMES DAILY IN THE MORNING, AT NOON, AND AT BEDTIME NEEDED FOR MUSCLE SPASMS 90 tablet 1 024 Active lidocaine (Lidoderm) 5 % patch APPLY 1 PATCH TOPICALLY LEAVE ON FOR 12 HOURS AND OFF FOR 12 HOURS IF NEEDED FOR PAIN DIRECTED BY MD. 30 patch 11 024 Active cloNIDine (Catapres) 0.1 MG tablet Take 0.1 mg by mouth 2 times daily. 025 Active mirtazapine (Remeron) 7.5 MG tablet TAKE ONE TABLET EVERY NIGHT Active sertraline (Zoloft) 100 MG tablet Take 100 mg by mouth Once per day. 025 Active traMADol (Ultram) 50 MG tabletIndication s:Other chronic pain,Chronic low back pain, unspecified back pain laterality, unspecified whether sciatica present TAKE 1 TABLET BY MOUTH TWICE DAILY IN THE MORNING AND AT BEDTIME NEEDED FOR SEVERE PAIN 45 tablet 025 Active medroxyPROGESTER one (Depo-Provera) 150 MG/ML injectionIndicat ions:Encounter for surveillance of injectable contraceptive Inject 1 mL (150 mg) into the muscle every 3 (three) months. 1 mL 3 025 Active medroxyPROGESTER one (Depo-Provera) 150 MG/ML injectionIndicat ions:Encounter for surveillance of injectable contraceptive Inject 1 mL (150 mg) into the shoulder, thigh, or buttocks every 3 (three) months. 1 mL 3 024 2024 Discontinued(R eorder (will not trigger notification to Pharmacy)) traMADol (Ultram) 50 MG tabletIndication s:Other chronic pain,Chronic low back pain, unspecified back pain laterality, unspecified whether sciatica present TAKE 1 TABLET BY MOUTH TWICE DAILY IN THE MORNING AND AT BEDTIME NEEDED FOR SEVERE PAIN 45 tablet 025 2024 Discontinued Hospital, Clinic, or Other Facility Administered Medication Ordered Dose Route Frequency Start Date End Date Status medroxyPROGESTERone (Depo-Provera) injection 150 mgIndications:Depo-Pro vera contraceptive status 150 mg IM Every 3 months 05/14/2024 05/09/2025 Active medroxyPROGESTERone (Depo-Provera) injection 150 mgIndications:Encounte r for surveillance of injectable contraceptive 150 mg IM Once 11/12/2024 11/12/2024 Active Active Problems Problem Noted Date Diagnosed Date Thoracic spondylosis 10/29/2024 Assessment & Plan (10/29/2024 8:48 AM EDT): See M54.5 Myofascial low back pain 03/15/2024 Overview (10/29/2024): Following with [facility] 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 Plan to transition to Sprint Peripheral Nerve stimulator following insurance approval. Assessment & Plan (10/29/2024 10:28 AM EDT): Hx low back pain, scoliosis, and various joint pains and aching Previous med trials: multiple NSAIDs, APAP, muscle relaxants, duloxetine, and gabapentin without success in the past Current medications: Tramadol: 50mg BID PRN. Goal to decrease dose of tramadol with addition of other modalities. 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 Reviewed risks/benefits of treatment modalities. 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 -Referral to physical therapy ([facility] in [place]) -Recommended [facility] acupuncture clinic -Referral to 01/19/24 -Pain Management: plan for possible Sprint PNS Assessment & Plan (03/15/2024 7:20 AM EST): [...] office -Referral to physical therapy ([facility] in [place]) -Recommended [facility] acupuncture clinic -Referral to [facility] 01/19/24 -Referral to Pain Medicine 01/19/24 Vitamin D deficiency 02/16/2024 Overview (02/16/2024): Started on Vit D 50,000 weekly x 8 weeks on 02/16/24 Lab Results Component Value Date [id number] 5.5 (L) 02/06/2024 Anxiety 02/05/2024 Assessment & Plan (10/29/2024 12:55 PM EDT): : Following w/ therapist every 2-3 weeks Psych prescriber: ROHITH BENAVIDES APRN Current medication regimen includes sertraline, mirtazapine, and clonidine Denies any acute safety concerns, engaged with care Intermittent chest pain 01/25/2024 Overview (10/29/2024): [facility] consult Feb 2024 EKG NSR, plan for treadmill stress test Assessment & Plan (10/29/2024 12:19 PM EDT): Reports stress test result was normal, will plan to [facility] Assessment & Plan (01/25/2024 7:59 PM EDT): [...] 39y/o Last PE: 01/19/24 OPH: following with [facility] Dental: established with dental care [...] chronic low back pain, generalized arthralgias Last [employer] Agreement: 04/24/23 Tier III ([employer] visit every 4 months) Assessment & Plan [...] office -Referral to physical therapy ([facility] in [place]) -Recommended [facility] acupuncture clinic -Referral to 01/19/24 -Referral to Pain Medicine 01/19/24 Assessment & Plan (05/01/2023 4:40 PM EST): Hx low back pain, scoliosis, and [...] office -Referral to physical therapy ([facility] in [place]) -Recommended [facility] acupuncture clinic Assessment & Plan (01/28/2023 8:34 AM EDT): Hx low back pain, scoliosis, and [...] dental office -Referral to physical therapy -Recommended [facility] acupuncture clinic Assessment & Plan (09/08/2022 6:55 PM EDT): Hx low back pain, scoliosis, and various joint pains and aching Previous med trials: multiple NSAIDs, APAP, muscle relaxants, and gabapentin without success in the past Current medications: Tramadol: 50mg BID PRN. Goal to decrease dose of tramadol with addition of other modalities. Cont 45 tablets for 28 day supply duloxetine 30mg nightly. Reviewed med side effects and safety. lidocaine patches and topical capsaicin PRN Labs: [...] to new PT location -Pt will trial [facility] acupuncture clinic (recommended at least 3 sessions) [...] Encounters Date Type Department Care Team Description 11/12/2024 9:30 AM EDT Clinical Support [facility] [address] [place] [address] Encounter for surveillance of injectable contraceptive 11/12/2024 Travel 11/09/2024 Refill [facility] [address] [place] [address] Shahida Toledo FNP Encounter for surveillance of injectable contraceptive 11/08/2024 Refill [facility] [address] [place] [address] Shahida Toledo FNP Other chronic pain; Chronic low back pain, unspecified back pain laterality, unspecified whether sciatica present 10/29/2024 8:30 AM EDT Office Visit [facility] [address] [place] [address] Shahida Toledo FNP Intermittent chest pain (Primary Dx); Myofascial low back pain; Thoracic spondylosis; Healthcare maintenance; Decreased appetite; Anxiety 10/29/2024 Telephone [facility] [address] [place] [address] Shahida Toledo FNP 10/29/2024 Travel 10/29/2024 Telephone [facility] [address] [place] [address] Shahida Toledo FNP chart prep 10/13/2024 Refill [facility] [address] [place] [address] Shahida Toledo FNP Other chronic pain; Chronic low back pain, unspecified back pain laterality, unspecified whether sciatica present 09/07/2024 9:30 AM EDT Clinical Support [facility] [address] [place] [address] Isabella Tadeo RN Other chronic pain (Primary Dx) 09/07/2024 Travel 08/25/2024 3:00 PM EDT Clinical Support [facility] [address] [place] [address] Amaya Thacker RN 08/25/2024 Travel 08/19/2024 Telephone [facility] [address] [place] [phone] Shahida Toledo FNP Appointment Request 08/18/2024 Telephone [facility] [address] [place] [address] Shahida Toledo FNP No Show 08/18/2024 Refill [facility] [address] [place] [address] Shahida Toledo FNP Other chronic pain; Chronic low back pain, unspecified back pain laterality, unspecified whether sciatica present 08/17/2024 Telephone [facility] [address] [place] [phone] Shahida Toledo FNP from Last 3 Months Immunizations Immunization Administration [...] Answer Date Recorded Patient Health Questionnaire-9 Score 12 10/29/2024 Patient Health Questionnaire-9 Score 12 10/29/2024 Last PHQ-9: Questionnaire Data Not on file 0 10/29/2024 Housing Stability Answer Date Recorded What is [...] Date Recorded Patient Health Questionnaire-2 Score 3 10/29/2024 Internet Access Answer Date Recorded Internet Access [...] Sign Reading Time Taken Comments Blood Pressure 101/68 10/29/2024 8:49 AM EDT Pulse 83 10/29/2024 8:49 AM EDT Temperature 37.2 C (98.9 F) 10/29/2024 8:49 AM EDT Respiratory Rate 16 10/29/2024 8:49 AM EDT Oxygen Saturation 100% 10/29/2024 8:49 AM EDT Inhaled Oxygen Concentration - - Weight 45.5 kg (100 lb 3.2 oz) 10/29/2024 8:49 A M EDT Height 153 cm (5' 0.25 ) 10/29/2024 8:49 AM EDT Body Mass Index 19.41 10/29/2024 8:49 AM EDT Plan of Treatment Upcoming Encounters Date Type Department Care Team (Late st Contact Info) Description 12/23/2024 9:00 AM EDT Clinical Support [facility] [address] [place] [address] Isabella Tadeo, ARCHANA [address] [place] [address] 01/07/2025 10:30 AM EDT Office Visit [facility] [address] [place] [address] María Carolina, OD [address] [place] [address] 02/07/2025 9:30 AM EDT Clinical Support [facility] [address] [place] [address] Health Maintenance Due Date Last Done Comments HPV Vaccines (1 - 3-dose series) 07/17/1999 Mammogram 2024 Influenza Vaccine (#1) 2024 01/19/2024 SDOH Screening 01/11/2025 01/12/2024 Alcohol/Substance Use Screening 01/18/2025 01/19/2024 Pap Smear 01/23/2025 01/23/2022 Family Planning (PISQ) 02/26/2025 02/27/2024 Tobacco Screening 03/15/2025 03/15/2024 Depression Monitoring 05/01/2025 10/29/2024, 025 Disability Screening 10/29/2025 10/29/2024 Cervical Cancer Screening 01/23/2027 HPV/Cotest 01/23/2027 01/23/2022 Lipid Panel 02/05/2029 02/06/2024 DTaP/Tdap/Td Vaccines (2 - Td or Tdap) 09/05/2032 09/05/2022 Zoster Vaccines (1 of 2) 2034 RSV Patients and Patients Aged 60 years or older (1 - 1-dose 75+ series) 07/17/2059 COVID-19 Vaccine Completed 01/19/2024, , 11/30/2021, Additional history exists Pneumococcal Vaccine: Pediatrics (0 to 5 Years) and At-Risk Patients (6 to 49) Years Completed 01/19/2024 HIV Screening Completed 02/06/2024, 01/23/2022 [...] / Unknown 09/07/2024 9:44 AM EDT Isabella Herzog RN - 09/07/2024 9:44 AM EDT Lot# [id number] Exp: 12-08-25 us 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 TEST ENTER/EDIT ORDERABLES Final Result * Hepatitis C Viral RNA, Quantitative, Real-Time PCR (02/06/2024 7:57 AM EDT) Hepatitis C Viral Load <15 NOT DETECTED NOT DETECTED IU/mL [facility] HCV Log PCR <1.18 NOT DETECTED NOT DETECTED Log IU/mL [facility] Comment:For additional infor linarebecca, please refer tohttp://education.Trudev/faq/ISA40e8(This link is being provided for informational/educational purposes only.)THIS TEST WAS PERFORMED AT:[facility] [place] [phone] SALAZAR MD Blood 02/06/2024 7:57 AM EDT 02/06/2024 7:57 AM EDT us Shahida Tloedo [facility] BLOOD ORDERABLES Final Res ult [facility] [address] [place] [phone] * HIV-1/2 Antigen and Antibodies, Fourth Generation, with Reflexes (02/06/2024 7:57 AM EDT) HIV AB/AG Nonreactive Nonreactive [facility] Comment:HIV-1 p24 Ag and/or HIV-1/HIV-2 Ab not detected.A test result that is nonreactive does not exclude thepossibility of exposure to or infection with HIV-1 and/orHIV-2. Nonreactive results in this assay for individualswith prior exposure to HIV-1 and/or HIV-2 may be due toantigen and antibody levels that are below the limit ofdetection of this assay.The [employer] HIV Ag/Ab Combo assay result andsupplemental assay results should be interpreted inconjunction with the patient's clinical presentation,history and other laboratory results. If the results areinconsistent with clinical evidence, additional testing issuggested to confirm the result. Blood Venous blood specimen / Unknown 02/06/2024 7:57 AM EDT 02/06/2024 7:57 AM EDT us Shahida Toledo [facility] BLOOD ORDERABLES Final Res ult Performing Organization Address [facility] Co de Phone Number [facility] [address] [place] [phone] [phone] * Lipid Panel, Standard (02/06/2024 7:57 AM EDT) Triglycerides 31 <150 mg/dL [facility] Comment:Desirable Triglyceri de: less than 150 mg/dLBorderline High Triglyceride 150-199 mg/dLHigh Triglyceride: 200-499 mg/dLVery High Triglyceride: greater than or equal to 5OO mg/dL Cholesterol 126 <200 mg/dL [facility] Comment:Desirable Cholestero l: less than 200 mg/dLBorderline High Cholesterol: 200-239 mg/dLHigh Cholesterol: greater than 239 mg/dL LDL Cholesterol Calculated 64 <100 mg/dL [facility] Comment:Desirable LDL: less than 100 mg/dLNear Optimal/Above Optimal LDL: 110- 129 mg/dLBorderline High LDL: 130-159 mg/dLHigh LDL: 160-189 mg/dLVery High LDL: greater than or equal to 190 mg/dL HDL Cholesterol 56 >40 mg/dL [facility] Comment:Desirable HDL: great er than 40 mg/dL Note: This HDL assay may give artificially low results in patients with liver disease. Blood Venous blood specimen / Unknown 02/06/2024 7:57 AM EDT 02/06/2024 7:57 AM EDT Shahida Toledo [facility] BLOOD ORDERABLES Final Res ult Performing Organization Address City/[facility]/ZIP Co de Phone Number [facility] [address] [place] [address] [phone] * THINPREP TIS PAP AND HPV mRNA E6/E7 WITH REFLEX TO HPV 16,18/45 (01/23/2022 2:06 PM EDT) Clinical Information: None given [facility] COMMENT SEE COMMENT [facility] Comment: EXPLANATORY NOTE: The Pap is a screening test for cervical cancer. It is not a diagnostic test and is subject to false negative and false positive results. It is most reliable when a satisfactory sample, regularly obtained, is submitted with relevant clinical findings and history, and when the Pap result is evaluated along with historic and current clinical information. COMMENT: This Pap test has been evaluated with computer assisted technology. [facility] Dip Unit Operator : SEE COMMENT [facility] Comment: [place], CT(ASCP) CT screening location: [place] [address] HPV nRNA E6/E7 Not Detected Not Detected [facility] Comment: Methodology: Drag Sawyer-Mediated Amplification This assay detects E6/E7 viral messenger RNA (mRNA) from 14 high-risk HPV types (16,18,31,33,35,39,45,51,52,56,58,59,66,68). Cervical sources are required for HPV testing. If a vaginal source from a patient who has had a total hysterectomy with removal of cervix was submitted, please contact the testing laboratory for alternative testing options. For additional information, please refer to http://education.Trudev/faq/QWP708r3 (This link if provided for information/ educational [...] present. 01/23/2022 2:06 PM EDT Shahida Toledo [facility] PATHOLOGY ORDERABLES Final Result [facility] from Last 3 Months or Most Recently Relevant to Health Maintenance Insurance Care Teams Review Assistant Relationship Specialty Start Date End Date Shahida Toledo FNP [address] [place] [phone] PCP - General Family Medicine 12/26/21
[2024-11-12 13:55] LABS: MANUAL DIFF FLAG NO
[2024-11-12 14:10] LABS: Hematocrit 35.3 % (37.0-47.0); Hemoglobin 11.8 g/dl (12.0-16.0); Imm Gran Abs Auto 0.01 X10*3/uL (0.00-0.03); Imm Gran Pct Auto 0.1 % (0.0-0.4); Lymphocytes Absolute Auto 2.0 X10*3/uL (1.2-4.9); Mean Corpuscular HGB Conc 33.4 g/dl (31.0-35.0); Mean Corpuscular Hemoglobin 31.0 pg (27.0-33.0); Mean Corpuscular Volume 92.7 fL (80.0-98.0); NRBC Abs Auto 0.000 X10*3/uL (0.0-0.012); NRBC Pct Auto 0.0 /100WBC (0.0-0.2); Platelet Count 288 X10*3/uL (160-400); Red Blood Count 3.81 X10*6/uL (4.20-5.50); White Blood Count 6.7 X10*3/uL (4.8-10.8)
[2024-11-12 14:26] LABS: Alanine Aminotransferase 10 U/L (0-31); Albumin Level 4.2 g/dL (3.5-5.0); Alkaline Phosphatase 52 U/L (39-117); Anion Gap 11 (12-20); Aspartate Amino Transferase 19 U/L (5-31); Blood Urea Nitrogen 6 mg/dL (9-16); Calcium 8.4 mg/dL (8.4-10.2); Carbon Dioxide 24 mmol/L (22-29); Chloride 109 mmol/L (96-108); Estimated Glomerular Filt Rate > 60; Magnesium 2.1 mg/dL (1.6-2.6); Potassium 3.6 mmol/L (3.3-5.1); Sodium 140 mmol/L (135-145); Total Protein 6.9 g/dL (6.5-8.0)
[2024-11-12 14:43] LABS: Folate 5.1 ng/mL (> or = 4.0); Vitamin B12 319 pg/mL (200-900)
== END 2024-11-12 09:30 | disposition home or self-care (01) ==
LOC: HO.CHCLDS 09:29
PROVIDERS: Visit Provider Registered Nurse
DX: Z00.00 Encounter for general adult medical examination without abnormal findings (principal); E55.9 Vitamin D deficiency, unspecified
CPT/HCPCS: 36415; 80053; 82306; 82607; 82746; 83735; 84443; 85025

== ENCOUNTER 2024-12-07 07:23 | Outpatient (REF) | payer MEDICAID, SELFPAY ==
--- NOTE | ~2024-12-07 | FL_ITS ---
EXAMINATION: FL GUIDANCE ONLY HISTORY: M47.814 - Spondylosis without myelopathy or radiculopathy, thoracic region COMPARISON: None available. TECHNIQUE: Fluoroscopy time: 5.6 seconds. Cumulative Dose: 3.9338 mGy. DAP: 0.7186 mGym2 Images: 1. FINDINGS: A fluoroscopic spot film of the thoracic spine demonstrates an electrode in place on the right. FL/FL guidance in treatment room IMPRESSION: Fluoroscopy during procedure. Please see procedure report for additional information. Electronically signed by: Aris Oseguera MD 12/07/2024 10:57 AM EDT
--- OUTSIDE RECORDS SUMMARY | 2024-12-07 07:24 | XMS_ITS | Clinical Summary ---
Author Organization [employer] Address [address] [place] [address] Care Team Providers Care Cheesemaker Helper Name Role Phone Shahida Toledo KAMILA Primary Care Provider [phone] Allergies No known active allergies Medications * [...] every 3 (three) months. 1 mL 3 Active ergocalciferol (Vitamin D2) 1.25 MG (64035 UT) capsule Take 1 capsule (1.25 mg) by mouth 1 (one) time per week. 6 capsule 025 2024 Active cholecalciferol (Vitamin D-3) 25 MCG (1000 UT) tablet Take 1 tablet (25 mcg) by mouth Once per day. 90 tablet 3 Active medroxyPROGESTER one (Depo-Provera) 150 MG/ML injectionIndicat [...] contraceptive 150 mg IM Once 11/12/2024 11/12/2024 Ended Active Problems Problem Noted Date Diagnosed Date Thoracic spondylosis 10/29/2024 Assessment & Plan (10/29/2024 8:48 AM EDT): See M54.5 Myofascial low back pain 03/15/2024 Overview (10/29/2024): Following with [facility] - UNIFORM CAP OPERATOR Eliel Completed bilat diagnostic T8, T9, T10 [...] with addition of other modalities. Following with TATTOO TECHNICIAN RN Cyclobenzaprine 5mg TID PRN lidocaine patches [...] office -Referral to physical therapy ([facility] in [place]) -Recommended [facility] acupuncture clinic -Referral to 01/19/24 -Pain [...] office -Referral to physical therapy ([facility] in [place]) -Recommended [facility] acupuncture clinic -Referral to 01/19/24 -Referral to Pain Medicine 01/19/24 Vitamin D deficiency 02/16/2024 Overview (02/16/2024): Started on Vit D 50,000 weekly x 8 weeks on 02/16/24 Lab Results Component Value Date [id number] 5.5 (L) 02/06/2024 Anxiety 02/05/2024 Assessment & Plan (10/29/2024 12:55 PM EDT): : Following w/ therapist every 2-3 weeks Psych prescriber: ROHITH BENAVIDES APRN Current medication regimen includes sertraline, mirtazapine, and clonidine Denies any acute safety concerns, engaged with care Intermittent chest pain 01/25/2024 Overview (10/29/2024): [facility] consult Feb 2024 EKG NSR, plan for treadmill stress test Assessment & Plan (10/29/2024 12:19 PM EDT): Reports stress test result was normal, will plan to request from [facility] Assessment & Plan (01/25/2024 7:59 PM [...] 39y/o Last PE: 01/19/24 OPH: following with [facility] Dental: established with dental [...] chronic low back pain, generalized arthralgias Last TATTOO TECHNICIAN Agreement: 04/24/23 Tier III (TATTOO TECHNICIAN visit every 4 months) Assessment & Plan [...] office -Referral to physical therapy ([facility] in [place]) -Recommended [facility] acupuncture clinic -Referral to 01/19/24 -Referral [...] office -Referral to physical therapy ([facility] [place]) -Recommended [facility] acupuncture clinic Assessment & Plan (01/28/2023 [...] dental office -Referral to physical therapy -Recommended [facility] acupuncture clinic Assessment & Plan (09/08/2022 [...] to new PT location -Pt will trial [facility] acupuncture clinic (recommended at least 3 [...] Encounters Date Type Department Care Team Description 11/22/2024 Orders Only [facility] MEDICINE [address] [place] [address] More Wong MD 11/19/2024 Results Follow-Up [facility] [address] [place] [address] More Wong MD Vitamin D, 25-Hydroxy, Total, Immunoassay 11/12/2024 9:30 AM EDT Clinical Support [facility] [address] [place] [address] April Jimenes, ARCHANA Encounter for surveillance of injectable contraceptive 11/12/2024 Travel 11/09/2024 Refill [facility] [address] [place] [address] Shahida Toledo FNP Encounter for surveillance of injectable contraceptive 11/08/2024 Refill [facility] [address] [place] [address] Shahida Toledo FNP Other chronic pain; Chronic low back pain, unspecified back pain laterality, unspecified whether sciatica present 10/29/2024 8:30 AM EDT Office Visit [facility] [address] [place] [address] Shahida Toledo FNP Intermittent chest pain (Primary Dx); Myofascial low back pain; Thoracic spondylosis; Healthcare maintenance; Decreased appetite; Anxiety 10/29/2024 Telephone [facility] [address] [place] [address] Shahida Toledo FNP 10/29/2024 Travel 10/29/2024 Telephone [facility] [address] [place] [address] Shahida Toledo FNP chart prep 10/13/2024 Refill [facility] [address] [place] [address] Shahida Toledo FNP Other chronic pain; Chronic low back pain, unspecified back pain laterality, unspecified whether sciatica present 09/07/2024 9:30 AM EDT Clinical Support [facility] [address] [place] [address] Isabella Tadeo, ARCHANA Other chronic pain (Primary Dx) 09/07/2024 Travel from Last 3 Months Immunizations Immunization Administration [...] is your housing situation today? I have jesseniaartemio vargas 01/12/[address] you [...] Description 12/23/2024 9:00 AM EDT Clinical Support [facility] [address] [place] [address] Isabella Tadeo, ARCHANA [address] [place] [address] 01/07/2025 10:30 AM EDT Office Visit [facility] OPTOMETRY [address] [place] [address] María Carolina, OD [address] [place] [address] 02/07/2025 9:30 AM EDT Clinical Support [facility] [address] [place] [address] Health Maintenance Due Date Last Done Comments [...] Procedure Name Priority Date/Time Associated Diagnosis Comments TSH W/REFLEX TO FT4 Routine 11/12/2024 9 :33 AM EDT Healthcare maintenance COMPREHENSIVE METABOLIC PANEL Routine 11/12/2024 9:33 AM EDT Healthcare maintenance CBC WITH AUTO DIFFERENTIAL Routine 11/12/2024 9:33 AM EDT Healthcare maintenance VITAMIN B12/FOLATE, SERUM PANEL Routine 11/12/2024 9:33 AM EDT Healthcare maintenance MAGNESIUM Routine 11/12/2024 9:33 AM EDT Healthcare maintenance VITAMIN D,25-OH,TOTAL,IA Routine 11/12/2024 9:33 AM EDT Vitamin D deficiency POCT LINETTE-14 URINE DRUG SCREEN Routine 09/07/2024 [...] Recently Relevant to Health Maintenance Results * (ABNORMAL) Vitamin D, 25-Hydroxy, Total, Immunoassay (11/12/2024 9:33 AM EDT) Vitamin D 25-OH Total 11.4(L) >30 ng/mL [facility] Comment: Health Based Reference Values*< 20 ng/mL Qdckuzlpz29-32 ng/mL Insufficient> 30 ng/mL Sufficient*Kelly GALLAGHER. N Engl J Med. 2007;357:266-280There is no well-established upper level of normal vitamin Dlevels. Some laboratories use 50 ng/mL as an upper limit ofnormal. However, toxicity is patient-dependent and may occurat any level. Careful correlation with the patient'spresentation is necessary and, if there is concern forvitamin D toxicity, treatment should be consideredirrespective of the serum level.Care must be taken in interpreting Vitamin D results fromdifferent laboratories and methodologies. Published datademonstrated that results from patients undergoinghemodialysis may show a negative bias when tested withvarious automated 25-OH vitamin D assays when compared toLC-MS/MS.When testing samples from patients whose predominant form ofVitamin D is Vitamin D2, such as patients receiving VitaminD2 supplementation, results that are subtherapeutic shouldbe confirmed with another method such as LC-MS/MS. Blood Venous blood specimen / Unknown 11/12/2024 9:33 AM EDT 11/12/2024 1:50 PM EDT us Shahida Toledo MODEL ENGINE MECHANIC LAB BLOOD ORDERABLES Final Res ult [facility] [address] [place] [address] [phone] * Vitamin B12/Folate, Serum Panel (11/12/2024 9:33 AM EDT) Vitamin B12 319 200 - 900 pg/mL [facility] Comment:NORMAL 200-900 PG/ML INDETERMINATE 160-199 PG/ML DEFICIENT < 160 PG/ML Folate 5.1 > or = 4.0 ng/mL [facility] Comment:Reference Values:> o r = 4.0 ng/mL< 4.0 ng/mL suggests folate deficiency Methotrexate, aminopterin and folinic acid(leucovorin) are chemotherapeutic agents whose molecularstructures are similar to folate; therefore, the Architectfolate assay cannot be used for patients using these drugs. Blood Venous blood specimen / Unknown 11/12/2024 9:33 AM EDT 11/12/2024 1:50 PM EDT Shahida Toledo MODEL ENGINE MECHANIC LAB BLOOD ORDERABLES Final Res ult Performing Organization Address [facility] Co de Phone Number [facility] [address] [place] [phone] * TSH W/Reflex to FT4 (11/12/2024 9:33 AM EDT) Pathologist [facility] TSH reflex Free T4 0.46 0.32 - 4.0 uIU/mL [facility] Blood Venous blood specimen / Unknown 11/12/2024 9:33 AM EDT 11/12/2024 1:50 PM EDT Shahida Toledo MODEL ENGINE MECHANIC LAB BLOOD ORDERABLES Final Res ult Performing Organization Address [facility] de Phone Number [facility] [address] [place] [phone] * (ABNORMAL) CBC auto differential (11/12/2024 9:33 AM EDT) White Blood Count 6.7 4.8 - 10.8 X10*3/uL [facility] Red Blood Count 3.81(L) 4.20 - 5.50 X10*6/uL [facility] Hemoglobin 11.8(L) 12.0 - 16.0 g/dl [facility] Hematocrit 35.3(L) 37.0 - 47.0 % [facility] Mean Corpuscular Volume 92.7 80.0 - 98.0 fL [facility] Mean Corpuscular Hemoglobin 31.0 27.0 - 33.0 pg [facility] Mean Corpuscular HGB Conc 33.4 31.0 - 35.0 g/dl [facility] Red Cell Distribution Width 13.0 11.0 - 16.0 % [facility] Platelet Count 288 160 - 400 X10*3/uL [facility] Mean Platelet Volume 10.0 9.4 - 12.3 fL [facility] Neutrophils Percent Auto 61.2 45 - 73 % [facility] Imm Gran Pct Auto 0.1 0.0 - 0.4 % [facility] Lymphocytes Percent Auto 29.3 20 - 40 % [facility] Monocytes Percent Auto 5.7 2 - 11 % [facility] Eosinophils Percent Auto 2.5 0 - 4 % [facility] Basophils Percent Auto 1.2 0 - 2 % [facility] NRBC Pct Auto 0.0 0.0 - 0.2 /100WBC [facility] Neutrophils Absolute Auto 4.1 2.0 - 8.3 x10*3/uL [facility] Imm Gran Abs Auto 0.01 0.00 - 0.03 X10*3/uL [facility] Lymphocytes Absolute Auto 2.0 1.2 - 4.9 X10*3/uL [facility] Monocytes Absolute Auto 0.4 0.1 - 1.2 X10*3/uL [facility] Eosinophils Absolute Auto 0.2 0.0 - 0.4 X10*3/uL [facility] Basophils Absolute Auto 0.1 0.0 - 0.2 X10*3/uL [facility] NRBC Abs Auto 0.000 0.0 - 0.012 X10*3/uL [facility] Blood Venous blood specimen / Unknown 11/12/2024 9:33 AM EDT 11/12/2024 1:50 PM EDT us Shahida Toledo MODEL ENGINE MECHANIC LAB BLOOD ORDERABLES Final Res ult [facility] [address] [place] [phone] * Magnesium (11/12/2024 9:33 AM EDT) Magnesium 2.1 1.6 - 2.6 mg/dL [facility] Blood Venous blood specimen / Unknown 11/12/2024 9:33 AM EDT 11/12/2024 1:50 PM EDT us Shahida Seramarko MODEL ENGINE MECHANIC LAB BLOOD ORDERABLES Final Res ult [facility] [address] [place] [address] [phone] * (ABNORMAL) Comprehensive Metabolic Panel (11/12/2024 9:33 AM EDT) Pathologist [facility] Sodium 140 135 - 145 mmol/L [facility] Potassium 3.6 3.3 - 5.1 mmol/L [facility] Chloride 109(H) 96 - 108 mmol/L [facility] Carbon Dioxide 24 22 - 29 mmol/L [facility] Anion Gap 11(L) 12 - 20 [facility] Urea Nitrogen (BUN) 6(L) 9 - 16 mg/dL [facility] Creatinine, Serum 0.75 0.5 - 1.4 mg/dL [facility] Estimated Glomerular Filt Rate >60 [facility] Comment:Chronic Kidney Disea se: Estimated GFR < 60 mL/min/1.50v2Ddxzin Kidney Disease: Estimated GFR < 15 mL/min/1.73m2 Glucose 103 60 - 115 mg/dL [facility] Calcium 8.4 8.4 - 10.2 mg/dL [facility] Bilirubin, Total 0.5 0.0 - 1.0 mg/dL [facility] Aspartate Amino Transferase 19 5 - 31 U/L [facility] Alanine Aminotransferase 10 0 - 31 U/L [facility] Total Protein 6.9 6.5 - 8.0 g/dL [facility] Albumin Level 4.2 3.5 - 5.0 g/dL [facility] Alkaline Phosphatase 52 39 - 117 U/L [facility] Blood Venous blood specimen / Unknown 11/12/2024 9:33 AM EDT 11/12/2024 1:50 PM EDT Result [facility] Shahida Toledo [facility] LAB BLOOD ORDERABLES Final Res ult Performing Organization Address [facility]/ZIP Co de Phone Number [facility] [address] [place] [address] [phone] * POCT LINETTE-14 Urine Drug Screen (09/07/2024 9:44 AM EDT) Pathologist [facility] Positive Urine Urine specimen obtained by clean catch procedure / Unknown 09/07/2024 9:44 AM EDT Narrative Isabella Tadeo RN - 09/07/2024 9:44 AM EDT Lot# [id number] Exp: 12-08-25 Result [facility] Shahida Toledo [facility] POINT OF CARE TEST ENTER/EDIT ORDERABLES Final Result * Hepatitis C Viral RNA, Quantitative, Real-Time PCR (02/06/2024 7:57 AM EDT) [facility] Hepatitis C Viral Load <15 NOT DETECTED NOT DETECTED IU/mL [facility] HCV Log PCR <1.18 NOT DETECTED NOT DETECTED Log IU/mL [facility] Comment:For additional infor delisa, please refer tohttp://education.Feedgen/faq/PIG26t9(This link is being provided for informational/educational purposes only.)THIS TEST WAS PERFORMED AT:[facility] [place] [phone] SALAZAR MD Blood 02/06/2024 7:57 AM EDT 02/06/2024 7:57 AM EDT Shahida Toledo [facility] LAB BLOOD ORDERABLES Final Res ult Performing Organization Address City/[facility]/ZIP Co de Phone Number [facility] [address] [place] [address] [phone] * HIV-1/2 Antigen and Antibodies, Fourth Generation, with Reflexes (02/06/2024 7:57 AM EDT) HIV AB/AG Nonreactive Nonreactive [facility] Comment:HIV-1 p24 Ag and/or HIV-1/HIV-2 Ab not detected.A test result that is nonreactive does not exclude thepossibility of exposure to or infection with HIV-1 and/orHIV-2. Nonreactive results in this assay for individualswith prior exposure to HIV-1 and/or HIV-2 may be due toantigen and antibody levels that are below the limit ofdetection of this assay.The MetaStat HIV Ag/Ab Combo assay result andsupplemental assay results should be interpreted inconjunction with the patient's clinical presentation,history and other laboratory results. If the results areinconsistent with clinical evidence, additional testing issuggested to confirm the result. Blood Venous blood specimen / Unknown 02/06/2024 7:57 AM EDT 02/06/2024 7:57 AM EDT us Shahida Toledo MODEL ENGINE MECHANIC LAB BLOOD ORDERABLES Final Res ult [facility] [address] [place] [phone] [phone] * Lipid Panel, Standard (02/06/2024 7:57 AM EDT) Pathologist [facility] Triglycerides 31 <150 mg/dL [facility] Comment:Desirable Triglyceri de: less than 150 mg/dLBorderline High Triglyceride 150-199 mg/dLHigh Triglyceride: 200-499 mg/dLVery High Triglyceride: greater than or equal to 5OO mg/dL Cholesterol 126 <200 mg/dL [facility] Comment:Desirable Cholestero l: less than 200 mg/dLBorderline High Cholesterol: 200-239 mg/dLHigh Cholesterol: greater than 239 mg/dL LDL Cholesterol Calculated 64 <100 mg/dL [facility] Comment:Desirable LDL: less than 100 mg/dLNear Optimal/Above Optimal LDL: 110- 129 mg/dLBorderline High LDL: 130-159 mg/dLHigh LDL: 160-189 mg/dLVery High LDL: greater than or equal to 190 mg/dL HDL Cholesterol 56 >40 mg/dL [facility] Comment:Desirable HDL: great er than 40 mg/dL Note: This HDL assay may give artificially low results in patients with liver disease. Blood Venous blood specimen / Unknown 02/06/2024 7:57 AM EDT 02/06/2024 7:57 AM EDT us Shahida Toledo MODEL ENGINE MECHANIC LAB BLOOD ORDERABLES Final Res ult [facility] [address] [place] [address] [phone] * THINPREP TIS PAP AND HPV mRNA E6/E7 WITH REFLEX TO HPV 16,18/45 (01/23/2022 2:06 PM EDT) Clinical Information: None given [facility] COMMENT SEE COMMENT CONVERTE D LEGACY [...] been evaluated with computer assisted technology. [facility] Vice President Of Software Development : SEE COMMENT [facility] Comment: WAC, CT(ASCP) CT screening location: [address] [address] HPV nRNA E6/E7 Not Detected Not Detected [facility] Comment: Methodology: Research Management Associate-Mediated Amplification This assay detects E6/E7 viral messenger RNA (mRNA) from 14 high-risk HPV types (16,18,31,33,35,39,45,51,52,56,58,59,66,68). Cervical sources are required for HPV testing. If a vaginal source from a patient who has had a total hysterectomy with removal of cervix was submitted, please contact the testing laboratory for alternative testing options. For additional information, please refer to http://education.Feedgen/faq/IJE263c0 (This link if provided for information/ educational [...] present. 01/23/2022 2:06 PM EDT Shahida Toledo [facility] PATHOLOGY ORDERABLES Final Result Performing Organization Address City/State/[facility] Co de Phone Number [facility] from Last 3 Months or Most Recently Relevant to Health Maintenance Insurance [employer] Care Teams Cheesemaker Helper Relationship Specialty Start Date End Date Shahida Toledo FNP [address] [place] [address] PCP - General Family Medicine 12/26/21
== END 2024-12-07 07:24 | disposition home or self-care (01) ==
LOC: CF 07:23
PROVIDERS: Visit Provider Anesthesiology
DX: M47.814 Spondylosis without myelopathy or radiculopathy, thoracic region (principal); M54.6 Pain in thoracic spine
CPT/HCPCS: 64555; C1778; J2003; J2795

== ENCOUNTER 2024-12-07 08:29 | Outpatient (AMB) | payer MEDICAID, SELFPAY ==
[2024-12-07 08:40] VITALS: BP 106/71; PULSE 97; RESP 20; O2SAT 100; BMI 19.8
--- NOTE | 2024-12-07 08:40 | A.OFFVIS_ITS ---
Vital Signs 12/07/24 08:40 Height 5 ft 1 in Weight 105 lb BMI 19.8 BP 106/71 Blood Pressure Location Lt brachial Position Sitting Respiration 20 Pulse 97 Pulse Source Pulse Oximeter Pulse Oximetry (%) 100 Oxygen Delivery Method Room Air Intake Visit Reasons: RIGHT T5 SPRINT PNS Nuclear Worker Technician Required: No Allergies No Known Allergies (No Known Allergies*) Allergy (Verified 10/01/24 10:56) [facility] Medical History (Updated 09/28/24 @ 16:17 by Brant Concepcion MD) Major depression Physical Exam Vital Signs: Last Vital Signs Pulse 97 12/07/24 08:40 Resp 20 12/07/24 08:40 BP 106/71 12/07/24 08:40 Pulse Ox 100 12/07/24 08:40 Oxygen Delivery Method Room Air 12/07/24 08:40 BMI result Body Mass Index 19.8 Office Procedures Sprint PNS Device: Sprint PNS Device [id number] Percutaneous Peripheral Neuroelectrode Procedure: 71524 - Percutaneous Peripheral Neuroelectrode Procedure code (CPT) selection complete Office Meds lidocaine HCl 10 mg/mL (1 %) injection solution Performing Provider: Brant Concepcion MD Performing Location: [facility] Administered by: Jyoti Willett LPN on 12/07/24 08:59 Dose Route Admin Location Dispensed Lot Number Expiration Date [facility] [employer] 5 mL subcut 5 mL Total Dispensed Waste 5 mL 0 % Assessment & Plan Assessment & Plan (1) Thoracic back pain: Code(s): M54.6 - Pain in thoracic spine Category: Medical (2) Spondylosis of thoracic spine: Code(s): M47.814 - Spondylosis without myelopathy or radiculopathy, thoracic region Category: Medical Plan Percutaneous implantation of peripheral nerve stimulation Sprint system T4 Right side. the risks, benefits and alternatives were discussed with the patient and informed consent was obtained, patient was placed in the prone position and padded to foster comfort. Time out was performed delineating correct site and side of the procedure , name and of the patient, patient participated in time out procedure. Theupper back and posterior neck of the patient was prepped with ChloraPrep and draped with sterile self adhesive utility towels. C-arm was brought over the operating field and clear picture of the T5 lamina on the right was delineated on the screen. The upper central portion of the lamina was chosen as a target of the needle tip insertion . After identifying and marking the intended target, the skin around the planned entry point and the subcutaneous tissues were injected with local anesthetic forming skin wheal.. A percutaneous sleeve and stimulating probe lead introduction system were assembled, inserted and advanced through the skin wheal to the point of interest under C-arm view T5 right lamina., the introducer needle was delivered to a location in proximity to the nerve. Multiple stimulation parameters were used to deliver stimulation to the nerve in concert with stimulating at multiple positions around the nerve. At this level unfortunately patient reported stimulation not corresponding to location of her pain. The decision was made to go 1 level higher at T4 lamina. The upper central portion of the lamina was chosen as a target of the needle tip insertion . After identifying and marking the intended target, the skin around the planned entry point and the subcutaneous tissues were injected with local anesthetic forming skin wheal.. A percutaneous sleeve and stimulating probe lead introduction system were assembled, inserted and advanced through the skin wheal to the point of interest under C-arm view T4 right lamina., the introducer needle was delivered to a location in proximity to the nerve. Multiple stimulation parameters were used to deliver stimulation to the nerve in concert with stimulating at multiple positions around the nerve. The nerve target acquisition was confirmed noting generation of in the corresponding to the nerve being stimulated. Various electrical parameter combinations were tested, and the lead location was adjusted (physically relocated) until the patient indicated overlapping the distribution of the patient?s typical region of pain. The stimulating probe was removed from the introducer and a percutaneous lead was guided through the needle and delivered to a location in similar proximity to the nerve. Final location was verified with electrical stimulation. The introducer needle was removed, and the exposed end of the percutaneous lead was attached to an external stimulator unit. At the end of the case various electrical parameter combinations were again tested until the patient indicated paresthesia or muscle tension overlapping the distribution of the patient?s typical region of pain. After confirming that lead impedance was in the normal range, the external unit was detached, the needle was removed, and the lead was anchored at the skin. The leads were threaded into the connector block and electrical continuity and desired patient response was confirmed. The connector block was attached to the external stimulator unit. The site was covered with a sterile occlusive dressing and a image was taken to document final placement. Upon completion of the procedure the patient was taken outside the OR where she recovered uneventfully she went home without immediate complications. Orders: Orders FL guidance in treatment room Today Sury Julian APRN, [employer] TYPIST M47.814 - Spondylosis without myelopathy or radiculopathy, thoracic region AMB Sprint PNS Today Brant Concepcion MD M47.814 - Spondylosis without myelopathy or radiculopathy, thoracic region, M54.6 - Pain in thoracic spine Coding Level of Care Code Procedure Only Diagnoses Thoracic back pain M54.6 Spondylosis of thoracic spine M47.814 CPT Codes Sprint PNS - Sprint PNS Device: Sprint PNS Device ([id number]) Sprint PNS - SPRINT: 06514 - Percutaneous Peripheral Neuroelectrode ([id number]) Implantable Device Implantable Device Implantable Devices [employer] Implant Date Expiration Date Analgesic PENS system 1 [employer] 12/07/24 07/13/26
== END 2024-12-07 09:45 | disposition home or self-care (01) ==
PROVIDERS: PCP Registered Nurse; Visit Provider Anesthesiology
DX: M54.6 Pain in thoracic spine (principal); M47.814 Spondylosis without myelopathy or radiculopathy, thoracic region
CPT/HCPCS: 64555

== ENCOUNTER 2024-12-17 08:38 | Outpatient (AMB) | payer MEDICAID, SELFPAY ==
[2024-12-17 08:52] VITALS: BP 119/65; PULSE 106; RESP 16; O2SAT 98; BMI 21.1
--- NOTE | 2024-12-17 08:52 | MHC.OFFVIS ---
Vital Signs 12/17/24 08:52 Height 5 ft Weight 108 lb BMI 21.1 BP 119/65 Blood Pressure Location Lt brachial Position Sitting Respiration 16 Pulse 106 H Pulse Source Pulse Oximeter Pulse Oximetry (%) 98 Oxygen Delivery Method Room Air Intake Visit Reasons: S/P RIGHT T5 SPRINT PNS Intake Note: Dressing change, site looks clean. Neurology Technologist Required: No Accompanied by: Self / Same As Patient Allergies No Known Allergies (No Known Allergies*) Allergy (Verified 12/17/24 09:19) HPI Comments Details: The patient is a 39-year-old female presenting for follow-up after a procedure. She is 10 days post-procedure Right T4 Sprint PNS placement and reports feeling stimulation in the area, though she feels it needs more central coverage. The patient is scheduled to have the procedure on the left side next week, which is expected to provide full coverage of the area. Currently, she experiences discomfort on the untreated side and some relief on the treated side. She denies any issues post-procedure and reports that the procedure was well-tolerated without pre-medication. - Right-sided pain post-procedure with stimulation felt in the area, needing more central coverage - Discomfort on the untreated side - Buttock pain post-procedure is not problematic - Affect: No significant impact on mood reported. - Analgesia: Reports stimulation in the treated area; no medication changes discussed. - Adverse Effects: None reported. - Activities of Daily Living: No significant interference reported. - Aberrant Drug Related Behaviors: None reported. [facility] Medical History (Updated 09/28/24 @ 16:17 by Brant Concepcion MD) Major depression Review of Systems Const All systems reviewed & are unremarkable except as noted in HPI and below Physical Exam Exam Exam: General: awake, alert, oriented. Answers questions appropriately. Fully engaged in examination. Skin: warm, dry, intact HEENT: Normocephalic. Hearing intact. Cardiac: External chest normal in appearance. Respiratory: No cough, audible wheezing or stridor. Abdomen: without gross distension. MS: No obvious swelling or deformities. Able to transition from sit to stand unassisted. Neurological: Oriented to person, place, time and situation. Thought process intact. No gait abnormalities appreciated. Psychiatric: Appropriate mood and affect. Good judgment and insight. Sprint dressing change: Existing dressing removed, Area cleansed with chloraprep. Site dry, clean without redness, swelling, warmth, bruising or drainage. Lead secure device removed. Area cleansed again with chloraprep, once dry skin barrier protectant wipe applied. New lead secure device applied, tegaderm applied. Patient tolerated procedure well. Vital Signs: Last Vital Signs Pulse 106 H 12/17/24 08:52 Resp 16 12/17/24 08:52 BP 119/65 12/17/24 08:52 Pulse Ox 98 12/17/24 08:52 Oxygen Delivery Method Room Air 12/17/24 08:52 BMI result Body Mass Index 21.1 Results Reviewed Results Reviewed: 08/05/2022 XR/XR cervical spine 5V FINDINGS: Bone alignment is normal. No fracture or dislocation. Normal disc spaces. Neural foramen are patent. Normal prevertebral soft tissues. IMPRESSION: Unremarkable examination. Assessment & Plan Assessment & Plan (1) Thoracic back pain: Code(s): M54.6 - Pain in thoracic spine Category: Medical (2) Spondylosis of thoracic spine: Code(s): M47.814 - Spondylosis without myelopathy or radiculopathy, thoracic region Category: Medical Plan During the visit, we discussed the patient's current status post-procedure and the plan to proceed with the other side next week for full coverage. The patient was informed that the procedure was well-tolerated and that no pre-medication was necessary unless desired. Patient was informed and verbally consented to the use of an ambient scribe for clinic note documentation during this visit Patient Instructions: - Return next week for the procedure on the other side. - Monitor for any changes in pain or discomfort and report if necessary. - Consider pre-medication if desired for relaxation before the procedure. Coding Level of Care Code Est Pt Level 3 (36777) Complex EM visit Add On G2211 Diagnoses Thoracic back pain M54.6 Spondylosis of thoracic spine M47.814
--- OUTSIDE RECORDS SUMMARY | 2024-12-17 09:34 | XMS_ITS | Clinical Summary ---
Author Organization [employer] Address [address] [facility] 7[address] [place] [address] Care Team Providers Care Leather Stretcher Name Role Phone Shahida Toledo KAMILA Primary Care Provider [phone] Allergies No known active allergies Medications * This document contains information received from the source organization and may not represent a complete record from that organization. varenicline (Chantix) 1 MG tabletIndications :Cigarette smoker [...] BY MD. 30 patch 11 4 Active cloNIDine (Catapres) 0.1 MG tablet Take 0.1 mg by mouth 2 times daily. 5 Active mirtazapine (Remeron) 7.5 MG tablet TAKE ONE TABLET EVERY NIGHT 5 Active sertraline (Zoloft) 100 MG tablet Take 100 mg by mouth Once per day. 5 Active traMADol (Ultram) 50 MG tabletIndications :Other chronic pain,Chronic low back pain, unspecified back pain laterality, unspecified whether sciatica present TAKE 1 TABLET BY MOUTH TWICE DAILY IN THE MORNING AND AT BEDTIME NEEDED FOR SEVERE PAIN 45 tablet 5 Active medroxyPROGESTERo ne (Depo-Provera) 150 MG/ML injectionIndicati ons:Encounter for surveillance of injectable contraceptive Inject 1 mL (150 mg) into the muscle every 3 (three) months. 1 mL 3 5 Active ergocalciferol (Vitamin D2) 1.25 MG (85819 UT) capsule Take 1 capsule (1.25 mg) by mouth 1 (one) time per week. 6 capsule 5 025 Active cholecalciferol (Vitamin D-3) 25 MCG (1000 UT) tablet Take 1 tablet (25 mcg) by mouth Once per day. 90 tablet 3 5 Active Hospital, Clinic, or Other Facility Administered Medication Ordered Dose Route Frequency Start Date End Date Status medroxyPROGESTERone (Depo-Provera) injection 150 mgIndications:Depo-Pro vera contraceptive status 150 mg IM Every 3 months 05/14/2024 05/09/2025 Active Active Problems Problem Noted Date Diagnosed Date Thoracic spondylosis 10/29/2024 Assessment & Plan (10/29/2024 8:48 AM EDT): See M54.5 Myofascial low back pain 03/15/2024 Overview (10/29/2024): [place] [facility] [place] - FIELD MANAGER Eliel Completed bilat diagnostic T8, T9, T10 [...] with addition of other modalities. Following with INDIVIDUALIZED EDUCATION PLAN AIDE RN Cyclobenzaprine 5mg TID PRN lidocaine patches [...] office -Referral to physical therapy ([facility] in [place]) -Recommended [facility] acupuncture clinic -Referral to 01/19/24 [...] office -Referral to physical therapy ([facility] in [place]) -Recommended [facility] acupuncture clinic -Referral to 01/19/24 -Referral to Pain Medicine 01/19/24 Vitamin D deficiency 02/16/2024 Overview (02/16/2024): Started on Vit D 50,000 weekly x 8 weeks on 02/16/24 Lab Results Component Value Date [id number] 5.5 (L) 02/06/2024 Anxiety 02/05/2024 Assessment & Plan (10/29/2024 12:55 PM EDT): BH: Following w/ therapist every 2-3 weeks Psych prescriber: ROHITH BENAVIDES APRN Current medication regimen includes sertraline, mirtazapine, and clonidine Denies any acute safety concerns, engaged with care Intermittent chest pain 01/25/2024 Overview (10/29/2024): [facility] consult Feb 2024 EKG NSR, plan for treadmill stress test Assessment & Plan (10/29/2024 12:19 PM EDT): Reports stress test result was normal, will plan to request from [facility] Assessment & Plan (01/25/2024 7:59 PM [...] 2022 Mammo: starting at 39y/o Last PE: 9/30/24 OPH: following with [facility] Dental: established with [...] chronic low back pain, generalized arthralgias Last INDIVIDUALIZED EDUCATION PLAN AIDE Agreement: 04/24/23 Tier III (INDIVIDUALIZED EDUCATION PLAN AIDE visit every 4 months) Assessment & Plan [...] office -Referral to physical therapy ([facility] in [place]) -Recommended [facility] acupuncture clinic -Referral to 01/19/24 [...] office -Referral to physical therapy ([facility] in [place]) -Recommended [facility] acupuncture clinic Assessment & Plan [...] dental office -Referral to physical therapy -Recommended [facility] acupuncture clinic Assessment & Plan [...] to new PT location -Pt will trial [facility] acupuncture clinic (recommended at least [...] Encounters Date Type Department Care Team Description 12/16/2024 Travel 11/22/2024 Orders Only [facility] MEDICINE [address] [place] [address] More Wong MD 11/19/2024 Results Follow-Up [facility] MEDICINE [address] [place] [address] More Wong MD Vitamin D, 25-Hydroxy, Total, Immunoassay 11/12/2024 9:30 AM EDT Clinical Support [facility] MED & PEDS [address] [place] [address] April Jimenes, ARCHANA Encounter for surveillance of injectable contraceptive 11/12/2024 Travel 11/09/2024 Refill [facility] MED & PEDS [address] [place] [address] Shahida Toledo FNP Encounter for surveillance of injectable contraceptive 11/08/2024 Refill [facility] MED & PEDS [address] [place] [address] Shahida Toledo FNP Other chronic pain; Chronic low back pain, unspecified back pain laterality, unspecified whether sciatica present 10/29/2024 8:30 AM EDT Office Visit [facility] MED & PEDS [address] [place] [address] Shahida Toledo FNP Intermittent chest pain (Primary Dx); Myofascial low back pain; Thoracic spondylosis; Healthcare maintenance; Decreased appetite; Anxiety 10/29/2024 Telephone [facility] MED & PEDS [address] [place] [address] Shahida Toledo FNP 10/29/2024 Travel 10/29/2024 Telephone [facility] MED & PEDS [address] [place] [address] Shahida Toledo FNP chart prep 10/13/2024 Refill [facility] MED & PEDS [address] [place] [address] Shahida Toledo FNP Other chronic pain; Chronic [...] Description 12/23/2024 9:00 AM EDT Clinical Support [facility] MED & PEDS [address] [place] [address] Isabella Tadeo, ARCHANA [address] [place] [address] 01/07/2025 10:30 AM EDT Office Visit [facility] OPTOMETRY [address] [place] [address] Ge, María, OD [address] [place] [address] 01/21/2025 9:00 AM EDT Nutrition [facility] DIABETES/NUTRITION [address] [place] [address] Monserrat Carmona, RD [address] [place] [address] 02/07/2025 9:30 AM EDT Clinical Support [facility] MED & PEDS [address] [place] [address] Health Maintenance Due Date Last Done Comments HPV Vaccines (1 - 3-dose series) 07/17/1999 Mammogram 2024 Influenza Vaccine (#1) 2024 01/19/2024 SDOH Screening 01/11/2025 01/12/2024 Alcohol/Substance Use Screening 01/18/2025 01/19/2024 Pap Smear 01/23/2025 01/23/2022 Family Planning (PISQ) 02/26/2025 02/27/2024 Tobacco Screening 03/15/2025 03/15/2024 Depression Monitoring 05/01/2025 10/29/2024, 025 Disability Screening 12/16/2025 12/16/2024 Cervical Cancer Screening 01/23/2027 HPV/Cotest 01/23/2027 01/23/2022 [...] 11/12/2024 9:33 AM EDT Vitamin D deficiency HEPATITIS C VIRAL RNA, QUANTITATIVE, REAL-TIME PCR [...] Vitamin D 25-OH Total 11.4(L) >30 ng/mL [facility] Comment: Health Based Reference Values*< 20 ng/mL [id number] ng/mL Insufficient> 30 ng/mL Sufficient*Kelly GALLAGHER. N [...] EDT 11/12/2024 1:50 PM EDT Shahida Toledo [facility] LAB BLOOD ORDERABLES Final Res ult Performing Organization Address [facility]/ZIP Co de Phone Number [facility] [address] [place] [address] [phone] * Vitamin B12/Folate, Serum Panel (11/12/2024 9:33 AM EDT) Vitamin B12 319 200 - 900 pg/mL [facility] Comment:NORMAL 200-900 PG/ML INDETERMINATE 160-199 PG/ML DEFICIENT < 160 PG/ML Folate 5.1 > or = 4.0 ng/mL [facility] Comment:Reference Values:> o r = 4.0 ng/mL< 4.0 ng/mL suggests folate deficiency Methotrexate, aminopterin and folinic acid(leucovorin) are chemotherapeutic agents whose molecularstructures are similar to folate; therefore, the Architectfolate assay cannot be used for patients using these drugs. Blood Venous blood specimen / Unknown 11/12/2024 9:33 AM EDT 11/12/2024 1:50 PM EDT Shahida Toledo [facility] LAB BLOOD ORDERABLES Final Res ult Performing Organization Address [facility] Co de Phone Number [facility] [address] [place], [place] [phone] * TSH W/Reflex to FT4 (11/12/2024 9:33 AM EDT) TSH reflex Free T4 0.46 0.32 - 4.0 uIU/mL [facility] Blood Venous blood specimen / Unknown 11/12/2024 9:33 AM EDT 11/12/2024 1:50 PM EDT Shahida Toledo [employer] LAB BLOOD ORDERABLES Final Res ult [facility] [address] [place], [place] [phone] * (ABNORMAL) CBC auto differential (11/12/2024 9:33 AM EDT) White Blood Count 6.7 4.8 - 10.8 X10*3/uL [facility] Red Blood Count 3.81(L) 4.20 - 5.50 X10*6/uL [facility] Hemoglobin 11.8(L) 12.0 - 16.0 g/dl [facility] Hematocrit 35.3(L) 37.0 - 47.0 % [facility] Mean Corpuscular Volume 92.7 80.0 - 98.0 fL [facility] Mean Corpuscular Hemoglobin 31.0 27.0 - 33.0 pg [facility] Mean Corpuscular HGB Conc 33.4 31.0 - 35.0 g/dl [facility] Red Cell Distribution Width 13.0 11.0 - 16.0 % [facility] Platelet Count 288 160 - 400 X10*3/uL [facility] Mean Platelet Volume 10.0 9.4 - 12.3 fL [facility] Neutrophils Percent Auto 61.2 45 - 73 % [facility] Imm Gran Pct Auto 0.1 0.0 - 0.4 % [facility] Lymphocytes Percent Auto 29.3 20 - 40 % [facility] Monocytes Percent Auto 5.7 2 - 11 % [facility] Eosinophils Percent Auto 2.5 0 - 4 % [facility] Basophils Percent Auto 1.2 0 - 2 % [facility] NRBC Pct Auto 0.0 0.0 - 0.2 /100WBC [facility] Neutrophils Absolute Auto 4.1 2.0 - 8.3 x10*3/uL [facility] Imm Gran Abs Auto 0.01 0.00 - 0.03 X10*3/uL [facility] Lymphocytes Absolute Auto 2.0 1.2 - 4.9 X10*3/uL [facility] Monocytes Absolute Auto 0.4 0.1 - 1.2 X10*3/uL [facility] Eosinophils Absolute Auto 0.2 0.0 - 0.4 X10*3/uL [facility] Basophils Absolute Auto 0.1 0.0 - 0.2 X10*3/uL [facility] NRBC Abs Auto 0.000 0.0 - 0.012 X10*3/uL [facility] Blood Venous blood specimen / Unknown 11/12/2024 9:33 AM EDT 11/12/2024 1:50 PM EDT Shahida [employer] [facility] LAB BLOOD ORDERABLES Final Res ult Performing Organization Address [facility]/ZIP Co de Phone Number [facility] [address] [place] [phone] * Magnesium (11/12/2024 9:33 AM EDT) Pathologist [facility] Magnesium 2.1 1.6 - 2.6 mg/dL [facility] Blood Venous blood specimen / Unknown 11/12/2024 9:33 AM EDT 11/12/2024 1:50 PM EDT Shahida Knotch [employer] LAB BLOOD ORDERABLES Final Res ult Performing Organization Address [facility] Co de Phone Number [facility] [address] [place] [phone] * (ABNORMAL) Comprehensive Metabolic Panel (11/12/2024 9:33 AM EDT) Sodium 140 135 - 145 mmol/L [facility] Potassium 3.6 3.3 - 5.1 mmol/L [facility] Chloride 109(H) 96 - 108 mmol/L [facility] Carbon Dioxide 24 22 - 29 mmol/L [facility] Anion Gap 11(L) 12 - 20 [facility] Urea Nitrogen (BUN) 6(L) 9 - 16 mg/dL [facility] Creatinine, Serum 0.75 0.5 - 1.4 mg/dL [facility] Estimated Glomerular Filt Rate >60 [facility] Comment:Chronic Kidney Disea se: Estimated GFR < 60 mL/min/1.29h1Xcnogi Kidney Disease: Estimated GFR < 15 mL/min/1.73m2 Glucose 103 60 - 115 mg/dL [facility] Calcium 8.4 8.4 - 10.2 mg/dL [facility] Bilirubin, Total 0.5 0.0 - 1.0 mg/dL [facility] Aspartate Amino Transferase 19 5 - 31 U/L [facility] Alanine Aminotransferase 10 0 - 31 U/L [facility] Total Protein 6.9 6.5 - 8.0 g/dL [facility] Albumin Level 4.2 3.5 - 5.0 g/dL [facility] Alkaline Phosphatase 52 39 - 117 U/L [facility] Blood Venous blood specimen / Unknown 11/12/2024 9:33 AM EDT 11/12/2024 1:50 PM EDT us Shahida Toledo [facility] LAB BLOOD ORDERABLES Final Res ult [facility] [address] [place] [phone] * Hepatitis C Viral RNA, Quantitative, Real-Time PCR (02/06/2024 7:57 AM EDT) Hepatitis C Viral Load <15 NOT DETECTED NOT DETECTED IU/mL [facility] HCV Log PCR <1.18 NOT DETECTED NOT DETECTED Log IU/mL [facility] Comment:For additional infor delisa, please refer tohttp://education.[employer]/faq/PTY13h4(This link is being provided for informational/educational purposes only.)THIS TEST WAS PERFORMED AT:[facility] [place] [phone] SALAZAR MD Blood 02/06/2024 7:57 AM EDT 02/06/2024 7:57 AM EDT Shahida Toledo [facility] LAB BLOOD ORDERABLES Final Res ult Performing Organization Address City/[facility]/ZIP Co de Phone Number [facility] [address] [place] [address] [phone] * HIV-1/2 Antigen and Antibodies, Fourth Generation, with Reflexes (02/06/2024 7:57 AM EDT) HIV AB/AG Nonreactive Nonreactive [facility] Comment:HIV-1 p24 Ag and/or HIV-1/HIV-2 Ab not detected.A test result that is nonreactive does not exclude thepossibility of exposure to or infection with HIV-1 and/orHIV-2. Nonreactive results in this assay for individualswith prior exposure to HIV-1 and/or HIV-2 may be due toantigen and antibody levels that are below the limit ofdetection of this assay.The [employer] HIV Ag/Ab Combo assay result andsupplemental assay results should be interpreted inconjunction with the patient's clinical presentation,history and other laboratory results. If the results areinconsistent with clinical evidence, additional testing issuggested to confirm the result. Blood Venous blood specimen / Unknown 02/06/2024 7:57 AM EDT 02/06/2024 7:57 AM EDT Shahida Toledo [facility] LAB BLOOD ORDERABLES Final Res ult Performing Organization Address City/[facility]/ZIP Co de Phone Number [facility] [address] [place] [address] [phone] * Lipid Panel, Standard (02/06/2024 7:57 AM EDT) Triglycerides 31 <150 mg/dL [facility] Comment:Desirable Triglyceri de: less than 150 mg/dLBorderline High Triglyceride 150-199 mg/dLHigh Triglyceride: 200-499 mg/dLVery High Triglyceride: greater than or equal to 5OO mg/dL Cholesterol 126 <200 mg/dL [facility] Comment:Desirable Cholestero l: less than 200 mg/dLBorderline High Cholesterol: 200-239 mg/dLHigh Cholesterol: greater than 239 mg/dL LDL Cholesterol Calculated 64 <100 mg/dL [facility] Comment:Desirable LDL: less than 100 mg/dLNear Optimal/Above Optimal LDL: 110- 129 mg/dLBorderline High LDL: 130-159 mg/dLHigh LDL: 160-189 mg/dLVery High LDL: greater than or equal to 190 mg/dL HDL Cholesterol 56 >40 mg/dL [facility] Comment:Desirable HDL: great er than 40 mg/dL Note: This HDL assay may give artificially low results in patients with liver disease. Blood Venous blood specimen / Unknown 02/06/2024 7:57 AM EDT 02/06/2024 7:57 AM EDT Shahida Toledo [facility] LAB BLOOD ORDERABLES Final Res ult [facility] [address] [place] [phone] * THINPREP TIS PAP AND HPV [...] with computer assisted technology. [facility] Van Owner Operator : SEE COMMENT [facility] Comment: WAC, CT(ASCP) CT screening location: [address] [address] HPV nRNA E6/E7 Not Detected Not Detected [facility] Comment: Methodology: [employer] Designer-Mediated Amplification This assay detects E6/E7 viral messenger RNA (mRNA) from 14 high-risk HPV types (16,18,31,33,35,39,45,51,52,56,58,59,66,68). Cervical sources are required for HPV testing. If a vaginal source from a patient who has had a total hysterectomy with removal of cervix was submitted, please contact the testing laboratory for alternative testing options. For additional information, please refer to http://education.[employer]/faq/DPL285i6 (This link if provided for information/ educational [...] present. 01/23/2022 2:06 PM EDT Shahida Toledo [facility] PATHOLOGY ORDERABLES Final Result Performing Organization Address City/State/[facility] Co de Phone Number [facility] from Last 3 Months or Most Recently Relevant to Health Maintenance Insurance [facility] C3 * Guarantor: Ronnie Isidro Account Type Relation to Patient Date of Phone Billing Address Personal/Family Self [address] [phone] Care Teams Leather Stretcher Relationship Specialty Start Date End Date Shahida Toledo FNP [address] [place] [phone] PCP - General Family Medicine 12/26/21
--- OUTSIDE RECORDS SUMMARY | 2024-12-17 09:35 | XMS_ITS | Encounter Summary ---
Author Organization [employer] Address [address] [facility] [address] [place] [address] Care Team Providers Care Steeplechase Jockey Name Role Phone Shahida Toledo Primary Care Provider Reason for Visit * Reason Onset Date Comments Appointment Request 06/30/2024 Encounter Details Date Type Department Care Team ([facility] Contact Info) Description 06/30/2024 Telephone [facility] MEDICINE [address] [place] [address] Shahida Toledo FNP [address] [place] [address] Appointment Request Social History Tobacco Use Types Packs/Day Years Used Date Smoking Tobacco: Every Day Cigarettes Smokeless Tobacco: Never Alcohol Use Standard Drinks/Week Comments Not Currently [...] Orientation Straight 02/18/2022 10 :19 AM EDT documented as of this encounter Miscellaneous Notes * Telephone Encounter - Ahsan Alfred - 06/30/2024 3:44 PM EDT Tc from pt requesting to R/s Appt from 07/01/24. Contact pt at [phone] documented in this encounter Plan of Treatment Upcoming Encounters Date Type Department Care Team (Late st Contact Info) Description 12/23/2024 9:00 AM EDT Clinical Support [facility] MED & PEDS [address] [place] [address] Isabella Tadeo, RN [address] [place] [address] 01/07/2025 10:30 AM EDT Office Visit [facility] OPTOMETRY [address] [place] [address] Ge, María, OD [address] [place] [address] 01/21/2025 9:00 AM EDT Nutrition [facility] DIABETES/NUTRITION [address] [place] [address] Monserrat Carmona, LAURA [address] [place] [address] 02/07/2025 9:30 AM EDT Clinical Support [facility] MED & PEDS [address] [place] [address] documented as of this encounter Visit Diagnoses Not on filedocumented in this encounter Additional Health Concerns Assessment Noted Time PHQ-9 Depression Total Score: 11 024 8:48 AM EDT documented as of this encounter Care Teams Steeplechase Jockey Relationship Specialty Start Date End Date Shahida Toledo FNP [address] [place] [address] PCP - General Family Medicine 12/26/21 documented as of this encounter
--- OUTSIDE RECORDS SUMMARY | 2024-12-17 09:35 | XMS_ITS | Encounter Summary ---
Author Organization [employer] Address [address] [facility] [address] 7t [place] [address] Care Team Providers Care Program Advisor Name Role Phone Shahida Toledo Primary Care Provider [phone] Encounter Details Date Type Department Care Team ([facility] st Contact Info) Description 08/17/2024 Telephone [facility] MEDICINE [address] [place] [address] Shahida Toledo FNP [address] [place] [address] Social History Tobacco Use Types Packs/Day Years [...] AM EDT documented as of this encounter Functional Status * Over the past 2 weeks, how often have you been bothered by any of the following problems? Question Answer Date of Assessment Author Patient Health Questionnaire -2 Score 3 10/29/2024 9:14 AM EDT Deonte Mejia MA * Little interest or pleasure in doing things Answer Date of Assessment Author More than half the days 10/29/2024 9:14 AM EDT Heather Cartagena MA * Feeling down, depressed, or hopeless Answer Date of Assessment Author Several days 10/29/2024 9:14 AM EDT Heather Carlos MA * Trouble falling or staying asleep, or sleeping too much Answer Date of Assessment Author Nearly every day 10/29/2024 9:14 AM EDT Heather Mckoy MA * Feeling tired or having little energy Answer Date of Assessment Author Nearly every day 10/29/2024 9:14 AM EDT Heather Mckoy MA * Poor appetite or overeating Answer Date of Assessment Author More than half the days 10/29/2024 9:14 AM NONAT Heather Cartagena MA * Feeling bad about yourself - or that you are a failure or have let yourself or your family down Answer Date of Assessment Author Not at all 10/29/2024 9:14 AM EDT Heather Carlos MA * Trouble concentrating on things, such as reading the newspaper or watching television Answer Date of Assessment Author Several days 10/29/2024 9:14 AM EDT [employer] Heather king MA * Moving or speaking so slowly that other people could have noticed? Or the opposite - being so fidgety or restless that you have been moving around a lot more than usual. Answer Date of Assessment Author Not at all 10/29/2024 9:14 AM EDT [employer] Heather king MA * Thoughts that you would be better off or hurting yourself in some way Answer Date of Assessment Author Not at all 10/29/2024 9:14 AM EDT [employer] Heather king MA * Patient Health Questionnaire-9 Score Answer Date of Assessment Author 12 10/29/2024 9:14 AM EDT Heather Carlos MA * How difficult have these problems made it for you to do your work, take care of things at home, or get along with other people? Answer Date of Assessment Author Somewhat difficult 10/29/2024 9:14 AM EDT Heather Lisa MA * Over the last 2 weeks, how often have you been bothered by any of the following problems? Question Answer Date of Assessment Author Feeling nervous, anxious, or on edge 2 10/29/2024 9:14 AM EDT Deonte Mejia MA Not being able to stop or control worrying 2 10/29/2024 9:14 AM EDT Deonte Mejia MA Worrying too much about different things 3 10/29/2024 9:14 AM EDT Deonte Mejia MA Trouble relaxing 3 10/29/2024 9:14 AM EDT Heather Cartagena MA Being so restless that it is hard to sit still 2 10/29/2024 9:14 AM EDT Deonte Mejia MA Becoming easily annoyed or irritable 2 10/29/2024 9:14 AM EDT Deonte Mejia MA Feeling afraid as if somethi ng awful might happen 0 10/29/2024 9:14 AM EDT Deonte Mejia MA OLIVIA-7 Total Score 14 10/29/2024 9:14 AM EDT Heather Mejia MA documented as of this encounter Miscellaneous Notes * Telephone Encounter - Jackie Prado RN - 08/17/2024 12:20 PM EDT TC to patient and Depo injection scheduled for 08/18/24 at 3:00. Patient will notify pharmacy that depo injection is requested. * Telephone Encounter - Farideh Resendiz - 08/17/2024 11:03 AM EDT Tc from pt requesting Depo shot. Pt stated she is due documented in this encounter Plan of Treatment Upcoming Encounters Date Type Department Care Team (Late st Contact Info) Description 12/23/2024 9:00 AM EDT Clinical Support [facility] MED & PEDS [address] [place] [address] Isabella Tadoe, RN [address] [place] [address] 01/07/2025 10:30 AM EDT Office Visit [facility] OPTOMETRY [address] [place] [address] Ge, María, OD [address] [place] [address] 01/21/2025 9:00 AM EDT Nutrition [facility] DIABETES/NUTRITION [address] [place] [address] Monserrat Carmona, RD [address] [place] [address] 02/07/2025 9:30 AM EDT Clinical Support [facility] MED & PEDS [address] [place] [address] documented as of this encounter Visit Diagnoses Not on filedocumented in this encounter Additional Health Concerns Assessment Noted Time PHQ-9 Depression Total Score: 11 02/04/2 024 8:48 AM EDT documented as of this encounter Care Teams Program Advisor Relationship Specialty Start Date End Date Shahida Toledo FNP [address] [place] [address] PCP - General Family Medicine 12/26/21 documented as of this encounter
--- OUTSIDE RECORDS SUMMARY | 2024-12-17 09:35 | XMS_ITS | Encounter Summary ---
Author Organization [employer] Address [address] [facility] 7t [place] [address] Care Team Providers Care Financial Reporting Advisor Name Role Phone Shahida Toledo TECHNICAL COMMUNICATOR Primary Care Provider Encounter Details Date Type Department Care Team ([facility] st Contact Info) Description 11/22/2024 Orders Only [facility] MEDICINE [address] [place], [place] [phone] More Wong MD [address] [place], [place] [phone] Social History Tobacco Use Types Packs/Day Years [...] AM EDT documented as of this encounter Plan of Treatment Upcoming Encounters Date Type Department Care Team ([facility] st Contact Info) Description 12/23/2024 9:00 AM EDT Clinical Support [facility] MED & PEDS [address] [place] [address] Isabella Tadeo, ARCHANA [address] [place] [address] 01/07/2025 10:30 AM EDT Office Visit [facility] OPTOMETRY [address] [place] [address] María Carolina, OD [address] [place] [address] 01/21/2025 9:00 AM EDT Nutrition [facility] DIABETES/NUTRITION [address] [place] [address] [place] [address] 02/07/2025 9:30 AM EDT Clinical Support [facility] MED & PEDS [address] [place] [address] documented as of this encounter Visit Diagnoses Not on filedocumented in this encounter Additional Health Concerns Assessment Noted Time PHQ-9 Depression Total Score: 12 025 9:14 AM EDT documented as of this encounter Care Teams Financial Reporting Advisor Relationship Specialty Start Date End Date Shahida Toledo FNP [address] [place] [address] PCP - General Family Medicine 12/26/21 documented as of this encounter
--- OUTSIDE RECORDS SUMMARY | 2024-12-17 09:35 | XMS_ITS | Encounter Summary ---
Author Organization [employer] Address [address] [facility] 7t [place] [address] Care Team Providers Care Diagnostic Cardiac Sonographer Name Role Phone Shahida Toledo Primary Care Provider [phone] Reason for Visit * Reason Onset Date Comments Appointment Request 08/19/2024 Encounter Details Date Type Department Care Team ([facility] Contact Info) Description 08/19/[address] [facility] MEDICINE [address] [place] [address] Shahida Toledo FNP [address] [place] [address] Appointment Request Social History Tobacco Use Types [...] * Telephone Encounter - Ahsan Alfred - 08/19/2024 8:39 AM EDT TC from pt requesting to R/s Depo appt from 08/18/24. Contact pt at [phone] documented in this encounter Plan of Treatment Upcoming Encounters Date Type Department Care Team (Late st Contact Info) Description 12/23/2024 9:00 AM EDT Clinical Support [facility] CHC MED & PEDS [address] [place] [address] Isabella Tadeo, RN [address] [place] [address] 01/07/2025 10:30 AM EDT Office Visit [facility] OPTOMETRY [address] [place] [address] Ge, María, OD [address] [place] [address] 01/21/2025 9:00 AM EDT Nutrition [facility] DIABETES/NUTRITION [address] [place] [address] [place] [address] 02/07/2025 9:30 AM EDT Clinical Support [facility] CHC MED & PEDS [address] [place] [address] documented as of this encounter Visit Diagnoses Not on filedocumented in this encounter Additional Health Concerns Assessment Noted Time PHQ-9 Depression Total Score: 11 024 8:48 AM EDT documented as of this encounter Care Teams Diagnostic Cardiac Sonographer Relationship Specialty Start Date End Date Shahida Toledo FNP [address] [place] [address] PCP - General Family Medicine 12/26/21 documented as of this encounter
--- OUTSIDE RECORDS SUMMARY | 2024-12-17 09:35 | XMS_ITS | Encounter Summary ---
Author Organization [employer] Address [address] [facility] 7t [place] [address] Care Team Providers Care Travel Pta Name Role Phone Shahida Toledo COMMERCIAL FRONT LOAD DRIVER Primary Care Provider [phone] Encounter Details Date Type Department Care Team (Latest Contact Info) Description 12/16/2024 Travel Social History Tobacco Use Types Packs/Day Years [...] Description 12/23/2024 9:00 AM EDT Clinical Support [facility] MED & PEDS [address] [place] [address] Isabella Tadeo, RN [address] [place] [address] 01/07/2025 10:30 AM EDT Office Visit [facility] OPTOMETRY [address] [place] [address] GeMaría todd, OD [address] [place] [address] 01/21/2025 9:00 AM EDT Nutrition [facility] DIABETES/NUTRITION [address] [place] [address] Monserrat Carmona, RD [address] [place] [address] 02/07/2025 9:30 AM EDT Clinical Support [facility] MED & PEDS [address] [place] [address] documented as of this encounter Visit Diagnoses Not on filedocumented in this encounter Additional Health Concerns Assessment Noted Time PHQ-9 Depression Total Score: 12 025 9:14 AM EDT documented as of this encounter Care Teams Travel Pta Relationship Specialty Start Date End Date Shahida Toledo FNP [address] [place] [address] PCP - General Family Medicine 12/26/21 documented as of this encounter
--- OUTSIDE RECORDS SUMMARY | 2024-12-17 09:35 | XMS_ITS | Encounter Summary ---
Author Organization [employer] Address [address] [facility] 7t [place] [address] Care Team Providers Care Agricultural Agent Name Role Phone Shahida Toledo Primary Care Provider [phone] Reason for Visit * Reason Comments Med Refill Encounter Details Date Type Department Care Team ([facility] Contact Info) Description 09/17/2022 Refill [facility] MEDICINE [address] [place] [address] Shahida Toledo FNP [address] [place] [address] Other chronic pain; Chronic low back pain, unspecified back pain laterality, unspecified whether sciatica present Social History Tobacco Use Types Packs/Day Years Used Date Smoking Tobacco: Every Day Cigarettes Smokeless Tobacco: Never Alcohol Use Standard Drinks/Week Comments Not Currently 0 (1 standard drink = 0.6 oz pur e alcohol) Depression Answer Date Recorded Patient Health Questionnaire-9 Score 10 09/05/2022 Depression Answer Date Recorded Patient Health Questionnaire-2 Score 2 09/05/2022 Comments Unknown Sex and Gender Information Value Date Recorded Sex Assigned at Female 02/18/2022 10:19 AM EDT Legal Sex Female 10:19 AM EDT Gender Identity Female 02/18/2022 10:19 AM EDT Sexual Orientation Straight 02/18/2022 10 :19 AM EDT COVID-19 Exposure Response Date Recorded In the last 10 days, have yo u been in contact with someone who was confirmed or suspected to have Coronavirus/COVID-19? No / Unsure 09/05/2022 8:45 AM EDT documented as of this encounter Plan of Treatment Upcoming Encounters Date Type Department Care Team (Late Contact Info) Description 12/23/2024 9:00 AM EDT Clinical Support [facility] CHC MED & PEDS [address] [place] [address] Isabella Tadeo, RN [address] [place] [address] 01/07/2025 10:30 AM EDT Office Visit [facility] OPTOMETRY [address] [place] [address] GeMaría todd, OD [address] [place] [address] 01/21/2025 9:00 AM EDT Nutrition [facility] DIABETES/NUTRITION [address] [place] [address] Monserrat Carmona, RD [address] [place] [address] 02/07/2025 9:30 AM EDT Clinical Support [facility] MED & PEDS [address] [place] [address] documented as of this encounter Visit Diagnoses Diagnosis Other chronic pain Chronic low back pain, unspecified back pain laterality, unspecified whether sciatica present documented in this encounter Additional Health Concerns Assessment Noted Time PHQ-9 Depression Total Score: 10 023 9:01 AM EDT documented as of this encounter Care Teams Agricultural Agent Relationship Specialty Start Date End Date Shahida Toledo FNP [address] [place] [address] PCP - General Family Medicine 12/26/21 documented as of this encounter
== END 2024-12-17 09:22 | disposition home or self-care (01) ==
LOC: HO.PMC 08:39
PROVIDERS: PCP Registered Nurse; Visit Provider Registered Nurse Emergency
DX: M54.6 Pain in thoracic spine (principal); M47.814 Spondylosis without myelopathy or radiculopathy, thoracic region
CPT/HCPCS: 99024

== ENCOUNTER → 2024-12-17 08:38 | Outpatient (BNVA) | payer MEDICAID, SELFPAY | PROVIDERS: PCP Registered Nurse; Visit Provider Registered Nurse Emergency | DX: M47.814 Spondylosis without myelopathy or radiculopathy, thoracic region (principal); M54.6 Pain in thoracic spine | CPT/HCPCS: 99212 ==

== ENCOUNTER 2024-12-21 06:12 | Outpatient (REF) | payer MEDICAID, SELFPAY ==
--- NOTE | ~2024-12-21 | FL_ITS ---
EXAMINATION: XR FLUOROSCOPY WITH IMAGES CLINICAL INFORMATION: Spondylosis without myelopathy or radiculopathy, thoracic region. COMPARISON: None available. TECHNIQUE: Fluoroscopy provided to: Dr. Concepcion Fluoroscopy time: 0.0 minutes DAP: [id number] [id number] Images: 1 FINDINGS: Solitary radiographic spot image taken of the thoracic spine. Please refer to the full operative report for details. FL/FL guidance in treatment room IMPRESSION: Fluoroscopic guidance. Electronically signed by: Won Hong MD 12/21/2024 02:02 PM EDT
--- OUTSIDE RECORDS SUMMARY | 2024-12-21 06:15 | XMS_ITS | Encounter Summary ---
Author Organization [employer] Address [address] [facility] 7t [place] [address] Care Team Providers Care Glassware Maker Demonstrator Name Role Phone Shahida Toledo Primary Care Provider [phone] Reason for Visit * Reason Onset Date Comments Appointment Request 08/19/2024 Encounter Details Date Type Department Care Team ([facility] Contact Info) Description 08/19/2024 Telephone [facility] MEDICINE [address] [place] [address] Shahida Toledo FNP [address] [place] [address] Appointment Request Social History Tobacco Use Types [...] Depo appt from 08/18/24. Contact pt at [phone] documented in this encounter Plan of Treatment Upcoming Encounters Date Type Department Care Team (Late st Contact Info) Description 12/23/2024 9:00 AM EDT Clinical Support [facility] CHC MED & PEDS [address] [place] [address] Isabella Tadeo, RN [address] [place] [address] 01/07/2025 10:30 AM EDT Office Visit [facility] OPTOMETRY [address] [place] [address] Ge, María, OD [address] [place] [address] 01/21/2025 9:00 AM EDT Nutrition [facility] DIABETES/NUTRITION [address] [place] [address] [place] [address] 02/07/2025 9:30 AM EDT Clinical Support [facility] CHC MED & PEDS [address] [place] [address] documented as of this encounter Visit Diagnoses Not on filedocumented in this encounter Additional Health Concerns Assessment Noted Time PHQ-9 Depression Total Score: 11 024 8:48 AM EDT documented as of this encounter Care Teams Glassware Maker Demonstrator Relationship Specialty Start Date End Date Shahida Toledo FNP [address] [place] [address] PCP - General Family Medicine 12/26/21 documented as of this encounter
--- OUTSIDE RECORDS SUMMARY | 2024-12-21 06:15 | XMS_ITS | Encounter Summary ---
Author Organization [employer] Address [address] [facility] 7t [place] [address] Care Team Providers Care Senior Marketing Associate Name Role Phone Shahida Toledo KAMILA Primary Care Provider [phone] Encounter Details Date Type Department Care Team [...] Description 12/23/2024 9:00 AM EDT Clinical Support [facility] MED & PEDS [address] [place] [address] Isabella Tadeo, RN [address] [place] [address] 01/07/2025 10:30 AM EDT Office Visit [facility] OPTOMETRY [address] [place] [address] GeMaría todd, OD [address] [place] [address] 01/21/2025 9:00 AM EDT Nutrition [facility] DIABETES/NUTRITION [address] [place] [address] Monserrat Carmona, RD [address] [place] [address] 02/07/2025 9:30 AM EDT Clinical Support [facility] MED & PEDS [address] [place] [address] documented as of this encounter Visit Diagnoses Not on filedocumented in this encounter Additional Health Concerns Assessment Noted Time PHQ-9 Depression Total Score: 12 025 9:14 AM EDT documented as of this encounter Care Teams Senior Marketing Associate Relationship Specialty Start Date End Date Shahida Toledo FNP [address] [place] [address] PCP - General Family Medicine 12/26/21 documented as of this encounter
--- OUTSIDE RECORDS SUMMARY | 2024-12-21 06:15 | XMS_ITS | Clinical Summary ---
Author Organization [employer] Address [address] [facility] 7t [place] [address] Care Team Providers Care Injection Molding Machine Operator Name Role Phone Shahida Toledo KAMILA Primary Care Provider [phone] Allergies No known active allergies Medications * [...] 5 Active ergocalciferol (Vitamin D2) 1.25 MG (58011 UT) capsule Take 1 capsule (1.25 mg) [...] back pain 03/15/2024 Overview (10/29/2024): Following with [facility] [place] [facility] - SENIOR SOUS CHEF Eliel Completed bilat diagnostic T8, T9, T10 [...] with addition of other modalities. Following with [facility] FEEDER RN Cyclobenzaprine 5mg TID PRN lidocaine patches [...] office -Referral to physical therapy ([facility] in [place]) -Recommended [facility] acupuncture clinic -Referral to 01/19/24 -Pain Management: [...] office -Referral to physical therapy ([facility] in [place]) -Recommended [facility] acupuncture clinic -Referral to 01/19/24 -Referral to Pain Medicine 01/19/24 Vitamin D deficiency 02/16/2024 Overview (02/16/2024): Started on Vit D 50,000 weekly x 8 weeks on 02/16/24 Lab Results Component Value Date [id number] 5.5 (L) 02/06/2024 Anxiety 02/05/2024 Assessment & Plan (10/29/2024 12:55 PM EDT): BH: Following w/ therapist every 2-3 weeks Psych prescriber: ROHITH BENAVIDES APRN Current medication regimen includes sertraline, mirtazapine, and clonidine Denies any acute safety concerns, engaged with care Intermittent chest pain 01/25/2024 Overview (10/29/2024): [facility] consult Feb 2024 EKG NSR, plan for treadmill stress test Assessment & Plan (10/29/2024 12:19 PM EDT): Reports stress test result was normal, will plan to request from [facility] Assessment & Plan (01/25/2024 7:59 PM [...] 39y/o Last PE: 9/30/24 OPH: following with [facility] Eye Care Dental: established with dental care [...] chronic low back pain, generalized arthralgias Last [facility] [employer] Agreement: 04/24/23 Tier III ([facility] FEEDER visit every 4 months) Assessment & Plan [...] office -Referral to physical therapy ([facility] in [place]) -Recommended [facility] acupuncture clinic -Referral to 01/19/24 -Referral to [...] office -Referral to physical therapy ([facility] [place]) -Recommended [facility] acupuncture clinic Assessment & Plan (01/28/2023 8:34 [...] dental office -Referral to physical therapy -Recommended [facility] acupuncture clinic Assessment & Plan (09/08/2022 6:55 [...] to new PT location -Pt will trial [facility] acupuncture clinic (recommended at least 3 sessions) [...] Encounters Date Type Department Care Team Description 12/17/2024 Telephone [facility] MEDICINE [address] [place], [place] [phone] Shahida Toledo FNP Referral 12/16/2024 Travel 11/22/2024 Orders Only [facility] MEDICINE [address] [place] [address] More Wong MD 11/19/2024 Results Follow-Up [facility] MEDICINE [address] [place] [address] More Wong MD Vitamin D, 25-Hydroxy, Total, Immunoassay 11/12/2024 9:30 AM EDT Clinical Support [facility] PEDS [address] [place] [address] April Jimenes RN Encounter for surveillance of injectable contraceptive 11/12/2024 Travel 11/09/2024 Refill [facility] [address] [place] [address] Shahida Toledo FNP Encounter for surveillance of injectable contraceptive 11/08/2024 Refill [facility] [address] [place] [address] Shahida Toledo FNP Other chronic pain; Chronic low back pain, unspecified back pain laterality, unspecified whether sciatica present 10/29/2024 8:30 AM EDT Office Visit [facility] [address] [place] [address] Shahida Toledo FNP Intermittent chest pain (Primary Dx); Myofascial low back pain; Thoracic spondylosis; Healthcare maintenance; Decreased appetite; Anxiety 10/29/2024 Telephone [facility] [address] [place] [address] Shahida Toledo FNP 10/29/2024 Travel 10/29/2024 Telephone [facility] [address] [place] [address] Shahida Toledo FNP chart prep 10/13/2024 Refill [facility] [address] [place] [address] Shahida Toledo FNP Other chronic pain; Chronic [...] Upcoming Encounters Date Type Department Care Team ([facility] st Contact Info) Description 12/23/2024 9:00 AM EDT Clinical Support [facility] [address] [place] [address] Isabella Tadeo, RN [address] [place] [address] 01/07/2025 10:30 AM EDT Office Visit [facility] OPTOMETRY [address] [place] [address] GeMaría todd, OD [address] [place] [address] 01/21/2025 9:00 AM EDT Nutrition [facility] DIABETES/NUTRITION [address] [place] [address] Monserrat Carmona, LAURA [address] [place] [address] 02/07/2025 9:30 AM EDT Clinical Support [facility] [address] [place] [address] Health Maintenance Due Date Last Done Comments [...] Vitamin D 25-OH Total 11.4(L) >30 ng/mL [facility] Comment: Health Based Reference Values*< 20 ng/mL [id number] ng/mL Insufficient> 30 ng/mL Sufficient*Kelly GALLAGHER. N [...] EDT 11/12/2024 1:50 PM EDT Shahida Toledo [facility] LAB BLOOD ORDERABLES Final Res ult Performing Organization Address [facility] Co de Phone Number [facility] [address] [place] [phone] * Vitamin B12/Folate, Serum Panel (11/12/2024 9:33 AM EDT) Vitamin B12 319 200 - 900 pg/mL [facility] Comment:NORMAL 200-900 PG/ML INDETERMINATE 160-199 PG/ML DEFICIENT < 160 PG/ML Folate 5.1 > or = 4.0 ng/mL [facility] Comment:Reference Values:> o r = 4.0 ng/mL< 4.0 ng/mL suggests folate deficiency Methotrexate, aminopterin and folinic acid(leucovorin) are chemotherapeutic agents whose molecularstructures are similar to folate; therefore, the Architectfolate assay cannot be used for patients using these drugs. Blood Venous blood specimen / Unknown 11/12/2024 9:33 AM EDT 11/12/2024 1:50 PM EDT Shahida Toledo [facility] LAB BLOOD ORDERABLES Final Res ult Performing Organization Address [facility] Co de Phone Number [facility] [address] [place] [phone] * TSH W/Reflex to FT4 (11/12/2024 9:33 AM EDT) Pathologist [facility] TSH reflex Free T4 0.46 0.32 - 4.0 uIU/mL [facility] Blood Venous blood specimen / Unknown 11/12/2024 9:33 AM EDT 11/12/2024 1:50 PM EDT us Shahida Toledo INFORMATICS MANAGER LAB BLOOD ORDERABLES Final Res ult [facility] [address] [place] [phone] * (ABNORMAL) CBC auto differential (11/12/2024 9:33 AM EDT) Pathologist [facility] White Blood Count 6.7 4.8 - 10.8 X10*3/uL [facility] Red Blood Count 3.81(L) 4.20 - 5.50 X10*6/uL [facility] Hemoglobin 11.8(L) 12.0 - 16.0 g/dl [facility] Hematocrit 35.3(L) 37.0 - 47.0 % [facility] Mean Corpuscular Volume 92.7 80.0 - 98.0 fL [facility] Mean Corpuscular Hemoglobin 31.0 27.0 - 33.0 pg [facility] Mean Corpuscular HGB Conc 33.4 31.0 - 35.0 g/dl [facility] Red Cell Distribution Width 13.0 11.0 - 16.0 % [facility] Platelet Count 288 160 - 400 X10*3/uL [facility] Mean Platelet Volume 10.0 9.4 - 12.3 fL [facility] Neutrophils Percent Auto 61.2 45 - 73 % [facility] Imm Gran Pct Auto 0.1 0.0 - 0.4 % [facility] Lymphocytes Percent Auto 29.3 20 - 40 % [facility] Monocytes Percent Auto 5.7 2 - 11 % [facility] Eosinophils Percent Auto 2.5 0 - 4 % [facility] Basophils Percent Auto 1.2 0 - 2 % [facility] NRBC Pct Auto 0.0 0.0 - 0.2 /100WBC [facility] Neutrophils Absolute Auto 4.1 2.0 - 8.3 x10*3/uL [facility] Imm Gran Abs Auto 0.01 0.00 - 0.03 X10*3/uL [facility] Lymphocytes Absolute Auto 2.0 1.2 - 4.9 X10*3/uL [facility] Monocytes Absolute Auto 0.4 0.1 - 1.2 X10*3/uL [facility] Eosinophils Absolute Auto 0.2 0.0 - 0.4 X10*3/uL [facility] Basophils Absolute Auto 0.1 0.0 - 0.2 X10*3/uL [facility] NRBC Abs Auto 0.000 0.0 - 0.012 X10*3/uL [facility] Blood Venous blood specimen / Unknown 11/12/2024 9:33 AM EDT 11/12/2024 1:50 PM EDT Shahida Tre INFORMATICS MANAGER LAB BLOOD ORDERABLES Final Res ult Performing Organization Address City/[facility]/ZIP Co de Phone Number [facility] [address] [place] [phone] * Magnesium (11/12/2024 9:33 AM EDT) Magnesium 2.1 1.6 - 2.6 mg/dL [facility] Blood Venous blood specimen / Unknown 11/12/2024 9:33 AM EDT 11/12/2024 1:50 PM EDT Shahida Toledo INFORMATICS MANAGER LAB BLOOD ORDERABLES Final Res ult Performing Organization Address City/[facility]/ZIP Co de Phone Number [facility] [address] [place] [phone] * (ABNORMAL) Comprehensive Metabolic Panel (11/12/2024 9:33 AM EDT) Sodium 140 135 - 145 mmol/L [facility] Potassium 3.6 3.3 - 5.1 mmol/L [facility] Chloride 109(H) 96 - 108 mmol/L [facility] Carbon Dioxide 24 22 - 29 mmol/L [facility] Anion Gap 11(L) 12 - 20 [facility] Urea Nitrogen (BUN) 6(L) 9 - 16 mg/dL [facility] Creatinine, Serum 0.75 0.5 - 1.4 mg/dL [facility] Estimated Glomerular Filt Rate >60 [facility] Comment:Chronic Kidney Disea se: Estimated GFR < 60 mL/min/1.13n5Pxvxpd Kidney Disease: Estimated GFR < 15 mL/min/1.73m2 Glucose 103 60 - 115 mg/dL [facility] Calcium 8.4 8.4 - 10.2 mg/dL [facility] Bilirubin, Total 0.5 0.0 - 1.0 mg/dL [facility] Aspartate Amino Transferase 19 5 - 31 U/L [facility] Alanine Aminotransferase 10 0 - 31 U/L [facility] Total Protein 6.9 6.5 - 8.0 g/dL [facility] Albumin Level 4.2 3.5 - 5.0 g/dL [facility] Alkaline Phosphatase 52 39 - 117 U/L [facility] Blood Venous blood specimen / Unknown 11/12/2024 9:33 AM EDT 11/12/2024 1:50 PM EDT us Shahida Toledo INFORMATICS MANAGER LAB BLOOD ORDERABLES Final Res ult [facility] [address] [place] [phone] * Hepatitis C Viral RNA, Quantitative, Real-Time PCR (02/06/2024 7:57 AM EDT) Pathologist [facility] Hepatitis C Viral Load <15 NOT DETECTED NOT DETECTED IU/mL [facility] HCV Log PCR <1.18 NOT DETECTED NOT DETECTED Log IU/mL [facility] Comment:For additional infor delisa, please refer tohttp://education.[employer]/faq/FOZ53u6(This link is being provided for informational/educational purposes only.)THIS TEST WAS PERFORMED AT:[employer] [place] [phone] SALAZAR MD Blood 02/06/2024 7:57 AM EDT 02/06/2024 7:57 AM EDT us Shahida Toledo INFORMATICS MANAGER LAB BLOOD ORDERABLES Final Res ult Performing Organization Address [facility]/ZIP Co de Phone Number [facility] [address] [place] [phone] * HIV-1/2 Antigen and Antibodies, Fourth Generation, with Reflexes (02/06/2024 7:57 AM EDT) HIV AB/AG Nonreactive Nonreactive [facility] Comment:HIV-1 p24 Ag and/or HIV-1/HIV-2 Ab not detected.A test result that is nonreactive does not exclude thepossibility of exposure to or infection with HIV-1 and/orHIV-2. Nonreactive results in this assay for individualswith prior exposure to HIV-1 and/or HIV-2 may be due toantigen and antibody levels that are below the limit ofdetection of this assay.The [employer] HIV Ag/Ab Combo assay result andsupplemental assay results should be interpreted inconjunction with the patient's clinical presentation,history and other laboratory results. If the results areinconsistent with clinical evidence, additional testing issuggested to confirm the result. Blood Venous blood specimen / Unknown 02/06/2024 7:57 AM EDT 02/06/2024 7:57 AM EDT us Shahida Toledo INFORMATICS MANAGER LAB BLOOD ORDERABLES Final Res ult Performing Organization Address City/[facility]/ZIP Co de Phone Number [facility] [address] [place] [phone] * Lipid Panel, Standard (02/06/2024 7:57 AM EDT) Triglycerides 31 <150 mg/dL [facility] Comment:Desirable Triglyceri de: less than 150 mg/dLBorderline High Triglyceride 150-199 mg/dLHigh Triglyceride: 200-499 mg/dLVery High Triglyceride: greater than or equal to 5OO mg/dL Cholesterol 126 <200 mg/dL [facility] Comment:Desirable Cholestero l: less than 200 mg/dLBorderline High Cholesterol: 200-239 mg/dLHigh Cholesterol: greater than 239 mg/dL LDL Cholesterol Calculated 64 <100 mg/dL [facility] Comment:Desirable LDL: less than 100 mg/dLNear Optimal/Above Optimal LDL: 110- 129 mg/dLBorderline High LDL: 130-159 mg/dLHigh LDL: 160-189 mg/dLVery High LDL: greater than or equal to 190 mg/dL HDL Cholesterol 56 >40 mg/dL [facility] Comment:Desirable HDL: great er than 40 mg/dL Note: This HDL assay may give artificially low results in patients with liver disease. Blood Venous blood specimen / Unknown 02/06/2024 7:57 AM EDT 02/06/2024 7:57 AM EDT us Shahida Toledo INFORMATICS MANAGER LAB BLOOD ORDERABLES Final Res ult [facility] [address] [place] [phone] [phone] * THINPREP TIS PAP AND HPV [...] with computer assisted technology. [facility] Art Conservator : SEE COMMENT [facility] Comment: WAC, CT(ASCP) CT screening location: [address] [address] HPV nRNA E6/E7 Not Detected Not Detected [facility] Comment: Methodology: Utility Teller-Mediated Amplification This assay detects E6/E7 viral messenger RNA (mRNA) from 14 high-risk HPV types (16,18,31,33,35,39,45,51,52,56,58,59,66,68). Cervical sources are required for HPV testing. If a vaginal source from a patient who has had a total hysterectomy with removal of cervix was submitted, please contact the testing laboratory for alternative testing options. For additional information, please refer to http://education.[employer]/faq/WIB190f9 (This link if provided for information/ educational [...] present. 01/23/2022 2:06 PM EDT Shahida Toledo [facility] LAB PATHOLOGY ORDERABLES Final Result Performing Organization Address City/State/[place] Co de Phone Number CONVERT[facility]GACY LABS from Last 3 Months or Most Recently Relevant to Health Maintenance Insurance [facility] C3 Care Teams Injection Molding Machine Operator Relationship Specialty Start Date End Date Shahida Toledo FNP [address] [place] [phone] PCP - General Family Medicine 12/26/21
--- OUTSIDE RECORDS SUMMARY | 2024-12-21 06:15 | XMS_ITS | Encounter Summary ---
Author Organization [employer] Address [address] [facility] 7t [place] [address] Care Team Providers Care Credit Counselor Name Role Phone Shahida Toledo Primary Care Provider [phone] Reason for Visit * Reason Onset Date Comments Referral 12/17/2024 Encounter Details Date Type Department Care Team ([facility] st Contact Info) Description 12/17/2024 Telephone [facility] MEDICINE [address] [place] [address] Shahida Toledo FNP [address] [place] [address] Referral Social History Tobacco Use Types Packs/Day Years [...] encounter Miscellaneous Notes * Telephone Encounter - Sara Morris MA - 12/17/2024 9:34 AM EDT Contacted pt in regards to Nutrition referral ,pt agreed to date/time of 01/21/2025 @9AM. LB documented in this encounter Plan of Treatment Upcoming Encounters Date Type Department Care Team (Late st Contact Info) Description 12/23/2024 9:00 AM EDT Clinical Support [facility] MED & PEDS [address] [place] [address] Isabella Tadeo, RN [address] [place] [address] 01/07/2025 10:30 AM EDT Office Visit [facility] OPTOMETRY [address] [place] [address] GeMaría todd, OD [address] [place] [address] 01/21/2025 9:00 AM EDT Nutrition [facility] DIABETES/NUTRITION [address] [place] [address] [place] [address] 02/07/2025 9:30 AM EDT Clinical Support [facility] CHC MED & PEDS [address] [place] [address] documented as of this encounter Visit Diagnoses Not on filedocumented in this encounter Additional Health Concerns Assessment Noted Time PHQ-9 Depression Total Score: 12 025 9:14 AM EDT documented as of this encounter Care Teams Credit Counselor Relationship Specialty Start Date End Date Sahhida Toledo FNP [address] [place] [address] PCP - General Family Medicine 12/26/21 documented as of this encounter
--- OUTSIDE RECORDS SUMMARY | 2024-12-21 06:15 | XMS_ITS | Encounter Summary ---
Author Organization [employer] Address [address] [facility] 7t [place] [address] Care Team Providers Care Box Car Washer Name Role Phone Shahida Toledo REFUELING RAMPMAN Primary Care Provider [phone] Encounter Details Date Type Department Care Team ([facility] st Contact Info) Description 11/22/2024 Orders Only [facility] MEDICINE [address] [place], [place] [phone] More Wong MD [address] [place], [place] [phone] Social History Tobacco Use Types Packs/Day Years [...] Upcoming Encounters Date Type Department Care Team ([facility] st Contact Info) Description 12/23/2024 9:00 AM EDT Clinical Support [facility] MED & PEDS [address] [place] [address] Isabella Tadeo, ARCHANA [address] [place] [address] 01/07/2025 10:30 AM EDT Office Visit [facility] OPTOMETRY [address] [place] [address] María Carolina, OD [address] [place] [address] 01/21/2025 9:00 AM EDT Nutrition [facility] DIABETES/NUTRITION [address] [place] [address] [place] [address] 02/07/2025 9:30 AM EDT Clinical Support [facility] MED & PEDS [address] [place] [address] documented as of this encounter Visit Diagnoses Not on filedocumented in this encounter Additional Health Concerns Assessment Noted Time PHQ-9 Depression Total Score: 12 025 9:14 AM EDT documented as of this encounter Care Teams Box Car Washer Relationship Specialty Start Date End Date Shahida Toledo FNP [address] [place] [address] PCP - General Family Medicine 12/26/21 documented as of this encounter
--- OUTSIDE RECORDS SUMMARY | 2024-12-21 06:15 | XMS_ITS | Encounter Summary ---
Author Organization [employer] Address [address] [facility] 7t [place] [address] Care Team Providers Care Operator Prefinish Name Role Phone Shahida Toledo Primary Care Provider [phone] Reason for Visit * Reason Comments Med Refill Encounter Details Date Type Department Care Team ([facility] Contact Info) Description 09/17/2022 Refill [facility] MEDICINE [address] [place] [address] Shahida Toledo FNP [address] [place] [address] Other chronic pain; Chronic low back pain, [...] Description 12/23/2024 9:00 AM EDT Clinical Support [facility] CHC MED & PEDS [address] [place] [address] Isabella Tadeo, RN [address] [place] [address] 01/07/2025 10:30 AM EDT Office Visit [facility] OPTOMETRY [address] [place] [address] GeMaría todd, OD [address] [place] [address] 01/21/2025 9:00 AM EDT Nutrition [facility] DIABETES/NUTRITION [address] [place] [address] Monserrat Carmona, RD [address] [place] [address] 02/07/2025 9:30 AM EDT Clinical Support [facility] MED & PEDS [address] [place] [address] documented as of this encounter Visit Diagnoses Diagnosis Other chronic pain Chronic low back pain, unspecified back pain laterality, unspecified whether sciatica present documented in this encounter Additional Health Concerns Assessment Noted Time PHQ-9 Depression Total Score: 10 023 9:01 AM EDT documented as of this encounter Care Teams Operator Prefinish Relationship Specialty Start Date End Date Shahida Toledo FNP [address] [place] [address] PCP - General Family Medicine 12/26/21 documented as of this encounter
--- OUTSIDE RECORDS SUMMARY | 2024-12-21 06:15 | XMS_ITS | Encounter Summary ---
Author Organization [employer] Address [address] [facility] 7t [place] [address] Care Team Providers Care Psychology Instructor Name Role Phone Shahida Toledo Primary Care Provider [phone] Reason for Visit * Reason Onset Date Comments Appointment Request 06/30/2024 Encounter Details Date Type Department Care Team ([facility] Contact Info) Description 06/30/2024 Telephone [facility] MEDICINE [address] [place] [address] Shahida Toledo FNP [address] [place] [address] Appointment Request Social History Tobacco Use Types [...] R/s Appt from 07/01/24. Contact pt at [phone] documented in this encounter Plan of Treatment Upcoming Encounters Date Type Department Care Team (Late st Contact Info) Description 12/23/2024 9:00 AM EDT Clinical Support [facility] CH[facility] MED & PEDS [address] [place] [address] Isabella Tadeo, RN [address] [place] [address] 01/07/2025 10:30 AM EDT Office Visit [facility] OPTOMETRY [address] [place] [address] Ge, María, OD [address] [place] [address] 01/21/2025 9:00 AM EDT Nutrition [facility] DIABETES/NUTRITION [address] [place] [address] Monserrat Carmona, LAURA [address] [place] [address] 02/07/2025 9:30 AM EDT Clinical Support [facility] CH[facility] MED & PEDS [address] [place] [address] documented as of this encounter Visit Diagnoses Not on filedocumented in this encounter Additional Health Concerns Assessment Noted Time PHQ-9 Depression Total Score: 11 024 8:48 AM EDT documented as of this encounter Care Teams Psychology Instructor Relationship Specialty Start Date End Date Shahida Toledo FNP [address] [place] [address] PCP - General Family Medicine 12/26/21 documented as of this encounter
== END 2024-12-21 06:13 | disposition home or self-care (01) ==
LOC: CF 06:12
PROVIDERS: Visit Provider Anesthesiology
DX: M47.814 Spondylosis without myelopathy or radiculopathy, thoracic region (principal); M54.6 Pain in thoracic spine
CPT/HCPCS: 64555; C1778; J2003

== ENCOUNTER 2024-12-21 08:24 | Outpatient (AMB) | payer MEDICAID, SELFPAY ==
[2024-12-21 08:45] VITALS: BP 119/82; PULSE 103; RESP 18; O2SAT 100; BMI 20.4
--- NOTE | 2024-12-21 08:45 | MHC.OFFVIS ---
Vital Signs 12/21/24 08:45 Height 5 ft 1 in Weight 108 lb BMI 20.4 BP 119/82 Blood Pressure Location Lt brachial Position Sitting Respiration 18 Pulse 103 H Pulse Source Pulse Oximeter Pulse Oximetry (%) 100 Oxygen Delivery Method Room Air Intake Visit Reasons: LEFT T5 SPRINT PNS Ethnographic Materials Conservator Required: No Allergies No Known Allergies (No Known Allergies*) Allergy (Verified 12/17/24 09:19) [facility] Medical History (Updated 09/28/24 @ 16:17 by Brant Concepcion MD) Major depression Physical Exam Vital Signs: Last Vital Signs Pulse 103 H 12/21/24 08:45 Resp 18 12/21/24 08:45 BP 119/82 12/21/24 08:45 Pulse Ox 100 12/21/24 08:45 Oxygen Delivery Method Room Air 12/21/24 08:45 BMI result Body Mass Index 20.4 Assessment & Plan Assessment & Plan (1) Thoracic back pain: Code(s): M54.6 - Pain in thoracic spine Category: Medical (2) Spondylosis of thoracic spine: Code(s): M47.814 - Spondylosis without myelopathy or radiculopathy, thoracic region Category: Medical Plan Percutaneous implantation of peripheral nerve stimulation Sprint system T4 left side. the risks, benefits and alternatives were discussed with the patient and informed consent was obtained, patient was placed in the prone position and padded to foster comfort. Time out was performed delineating correct site and side of the procedure , name and of the patient, patient participated in time out procedure. Theupper back and posterior neck of the patient was prepped with ChloraPrep and draped with sterile self adhesive utility towels. C-arm was brought over the operating field and clear picture of the T4 lamina on theleft was delineated on the screen. The upper central portion of the lamina was chosen as a target of the needle tip insertion . After identifying and marking the intended target, the skin around the planned entry point and the subcutaneous tissues were injected with local anesthetic forming skin wheal.. A percutaneous sleeve and stimulating probe lead introduction system were assembled, inserted and advanced through the skin wheal to the point of interest under C-arm view T4 right lamina., the introducer needle was delivered to a location in proximity to the nerve. Multiple stimulation parameters were used to deliver stimulation to the nerve in concert with stimulating at multiple positions around the nerve. The nerve target acquisition was confirmed noting generation of in the corresponding to the nerve being stimulated. Various electrical parameter combinations were tested, and the lead location was adjusted (physically relocated) until the patient indicated overlapping the distribution of the patient?s typical region of pain. The stimulating probe was removed from the introducer and a percutaneous lead was guided through the needle and delivered to a location in similar proximity to the nerve. Final location was verified with electrical stimulation. The introducer needle was removed, and the exposed end of the percutaneous lead was attached to an external stimulator unit. At the end of the case various electrical parameter combinations were again tested until the patient indicated paresthesia or muscle tension overlapping the distribution of the patient?s typical region of pain. After confirming that lead impedance was in the normal range, the external unit was detached, the needle was removed, and the lead was anchored at the skin. The leads were threaded into the connector block and electrical continuity and desired patient response was confirmed. The connector block was attached to the external stimulator unit. The site was covered with a sterile occlusive dressing and a image was taken to document final placement. Upon completion of the procedure the patient was taken outside the OR where she recovered uneventfully she went home without immediate complications. Orders: Orders FL guidance in treatment room Today M47.814 - Spondylosis without myelopathy or radiculopathy, thoracic region Coding Level of Care Code Procedure Only Diagnoses Thoracic back pain M54.6 Spondylosis of thoracic spine M47.814 Implantable Device Implantable Device Implantable Devices Qty Patient Resource Specialist Implant Date Expiration Date Analgesic PENS system 1 [employer] 12/21/24 Analgesic PENS system 1 [employer] 12/07/24 07/13/26
== END 2024-12-21 09:24 | disposition home or self-care (01) ==
LOC: HO.PMCPRC 08:24
PROVIDERS: PCP Registered Nurse; Visit Provider Anesthesiology
DX: M47.814 Spondylosis without myelopathy or radiculopathy, thoracic region (principal); M54.6 Pain in thoracic spine
CPT/HCPCS: 64555

== ENCOUNTER 2025-01-07 11:24 | Outpatient (AMB) | payer MEDICAID, SELFPAY ==
--- OUTSIDE RECORDS SUMMARY | 2025-01-07 10:30 | XMS_ITS | Encounter Summary ---
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 Social History Tobacco Use Types Packs/Day Years [...] Care Team (Late st Contact Info) Description 01/21/2025 9:00 AM EDT Nutrition [facility] DIABET[facility]/NUTRITION [address] [place] [address] [place] [address] 02/07/2025 9:30 AM EDT Clinical Support [facility] MED & PEDS [address] [place] [address] 04/27/2025 9:00 AM EST Clinical Support [facility] MED & PEDS [address] [place] [address] Isabella Tadeo, ARCHANA [address] [place] [address] documented as of this encounter Visit Diagnoses Diagnosis Myopia of both eyes- Primary 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 Paving stone degeneration of peripheral retina documented in this encounter Additional Health Concerns Assessment Noted Time PHQ-9 Depression Total Score: 12 025 9:14 AM EDT documented as of this encounter Care Teams Real Estate Professor Relationship Specialty Start Date End Date Shahida Toledo FNP [address] [place] [address] PCP - General Family Medicine 12/26/21 documented as of this encounter
[2025-01-07 11:27] VITALS: BP 102/74; PULSE 90; RESP 16; O2SAT 98; BMI 20.4
--- NOTE | 2025-01-07 11:27 | MHC.OFFVIS ---
Vital Signs 01/07/25 11:27 Height 5 ft 1 in Weight 108 lb BMI 20.4 BP 102/74 Blood Pressure Location Lt brachial Position Sitting Respiration 16 Pulse 90 Pulse Source Pulse Oximeter Pulse Oximetry (%) 98 Oxygen Delivery Method Room Air Intake Visit Reasons: S/P LEFT T5 SPRINT PNS 12/21/24 Intake Note: Dressing changed, sites looks great. Civil Engineering Draftsperson Required: No Accompanied by: Self / Same As Patient Allergies No Known Allergies (No Known Allergies*) Allergy (Verified 01/07/25 11:37) HPI Comments Details: The patient is a 39-year-old female presenting for follow-up after a procedure. She is 10 days post-procedure Left T4 Sprint PNS placement and 20 days status post right T4 sprint. Feeling full coverage over the area. Endorses 80% pain relief with no untoward effects. The patient also experiences significant leg fatigue and bilateral knee pain, particularly when ascending stairs or standing for prolonged periods. She describes the pain as severe, impacting her ability to perform daily activities, and notes that her legs feel tired and painful after standing for an hour. The patient has been advised to consider x-rays and physical therapy for further evaluation and management of her knee symptoms if pain persists. - Back pain: Improved by 80% with current treatment, initially severe. - Leg pain: Severe, worsens with stair climbing and prolonged standing, causing significant fatigue. - Affect: Pain impacts daily activities and causes significant fatigue. - Analgesia: Current treatment has improved back pain by 80%. - Activities of Daily Living: Pain affects ability to climb stairs and stand for long periods. [facility] Medical History (Updated 09/28/24 @ 16:17 by Brant Concepcion MD) Major depression Review of Systems Const Details: - Musculoskeletal: Reports back pain improved by 80%, leg fatigue and knee pain. Physical Exam Exam Exam: General: awake, alert, oriented. Answers questions appropriately. Fully engaged in examination. Skin: warm, dry, intact HEENT: Normocephalic. Hearing intact. Cardiac: External chest normal in appearance. Respiratory: No cough, audible wheezing or stridor. Abdomen: without gross distension. MS: No obvious swelling or deformities. Able to transition from sit to stand unassisted. Neurological: Oriented to person, place, time and situation. Thought process intact. No gait abnormalities appreciated. Psychiatric: Appropriate mood and affect. Good judgment and insight. Sprint dressing change: Existing dressing removed, Area cleansed with chloraprep. Sites dry, clean without redness, swelling, warmth, bruising or drainage. Lead secure devices removed. Area cleansed again with chloraprep, once dry skin barrier protectant wipe applied. New lead secure devices applied, tegaderm applied. Patient tolerated procedure well. Vital Signs: Last Vital Signs Pulse 90 01/07/25 11:27 Resp 16 01/07/25 11:27 BP 102/74 01/07/25 11:27 Pulse Ox 98 01/07/25 11:27 Oxygen Delivery Method Room Air 01/07/25 11:27 BMI result Body Mass Index 20.4 Results Reviewed Results Reviewed: 08/05/2022 XR/XR cervical spine 5V FINDINGS: Bone alignment is normal. No fracture or dislocation. Normal disc spaces. Neural foramen are patent. Normal prevertebral soft tissues. IMPRESSION: Unremarkable examination. Assessment & Plan Assessment & Plan (1) Thoracic back pain: Code(s): M54.6 - Pain in thoracic spine Category: Medical (2) Spondylosis of thoracic spine: Code(s): M47.814 - Spondylosis without myelopathy or radiculopathy, thoracic region Category: Medical Plan The patient will continue with the current treatment regimen for back pain, which has shown significant improvement. Further evaluation of leg pain and fatigue will include the use of compression socks to improve circulation and reduce symptoms. For the suspected knee arthritis, the patient is advised to undergo x-rays and consider physical therapy. If symptoms persist, options such as steroid or gel injections may be explored. Patient would like to off starting treatment for her knees at this time. Patient was informed and verbally consented to the use of an ambient scribe for clinic note documentation during this visit. Patient Instructions: - Continue current treatment for back pain. - Wear compression socks to help with leg fatigue. - Consider x-rays and physical therapy for knee symptoms. - Follow up if symptoms persist or worsen. Coding Level of Care Code Est Pt Level 3 (94637) Complex EM visit Add On G2211 Diagnoses Thoracic back pain M54.6 Spondylosis of thoracic spine M47.814
--- OUTSIDE RECORDS SUMMARY | 2025-01-07 12:03 | XMS_ITS | Encounter Summary ---
Author Organization [employer] Address [address] [facility] 7[address] [place] [address] Care Team Providers Care Piping Drafter Name Role Phone Shahida Toledo FLOW FLOOR ATTENDANT Primary Care Provider [phone] Encounter Details Date Type Department Care Team ([facility] st Contact Info) Description 11/22/2024 Orders Only [facility] MEDICINE [address] [place], [place] [phone] More Wong MD [address] [place], [place] [phone] Social History Tobacco Use Types Packs/Day Years [...] Info) Description 01/21/2025 9:00 AM EDT Nutrition [facility] DIABETES/NUTRITION [address] [place] [address] [place] [address] 02/07/2025 9:30 AM EDT Clinical Support [facility]ED[facility] [address] [place] [address] 04/27/2025 9:00 AM EST Clinical Support [facility]ED[facility] [address] [place] [address] Isabella Tadeo, RN [address] [place] [address] documented as of this encounter Visit Diagnoses Not on filedocumented in this encounter Additional Health Concerns Assessment Noted Time PHQ-9 Depression Total Score: 12 025 9:14 AM EDT documented as of this encounter Care Teams Piping Drafter Relationship Specialty Start Date End Date Shahida Toledo FNP [address] [place] [id number] PCP - General Family Medicine 12/26/21 documented as of this encounter
--- OUTSIDE RECORDS SUMMARY | 2025-01-07 12:03 | XMS_ITS | Encounter Summary ---
Author Organization [employer] Address [address] [facility] 7t [place] [address] Care Team Providers Care Ice Sculptor Name Role Phone Shahida Toledo BRACELET AND BROOCH MAKER Primary Care Provider [phone] Encounter Details Date Type Department Care Team (Latest Contact Info) Description 01/07/2025 Travel Social History Tobacco Use Types Packs/Day [...] Info) Description 01/21/2025 9:[address] [facility] DIABETES/NUTRITION [address] [place] [address] [place] [address] 02/07/2025 9:30 AM EDT Clinical Support [facility] MED & PEDS [address] [place] [address] 04/27/2025 9:00 AM EST Clinical Support [facility] MED & PEDS [address] [place] [address] Isabella Tadeo, RN [address] [place] [address] documented as of this encounter Visit Diagnoses Not on filedocumented in this encounter Additional Health Concerns Assessment Noted Time PHQ-9 Depression Total Score: 12 07 025 9:14 AM EDT documented as of this encounter Care Teams Ice Sculptor Relationship Specialty Start Date End Date Shahida Toledo FNP [address] [place] [address] PCP - General Family Medicine 12/26/21 documented as of this encounter
--- OUTSIDE RECORDS SUMMARY | 2025-01-07 12:03 | XMS_ITS | Encounter Summary ---
Author Organization [email or web address] Address [address] [facility] 7t [place] [address] Care Team Providers Care Compilation Clerk Name Role Phone Shahida Toledo Primary Care Provider [phone] Reason for Visit * Reason Onset Date Comments Appointment Request 06/30/2024 Encounter Details Date Type Department Care Team ([facility] Contact Info) Description 06/30/2024 Telephone [facility] MEDICINE [address] [place] [address] Shahida Toledo FNP [address] [place] [address] Appointment Request Social History Tobacco Use Types [...] R/s Appt from 07/01/24. Contact pt at [phone] documented in this encounter Plan of Treatment Upcoming Encounters Date Type Department Care Team (Late st Contact Info) Description 01/21/2025 9:00 AM EDT Nutrition [facility] DIABETES/NUTRITION [address] [place] [address] [place] [address] 02/07/2025 9:30 AM EDT Clinical Support [facility] MED & PEDS [address] [place] [address] 04/27/2025 9:00 AM EST Clinical Support [facility] MED & PEDS [address] [place] [address] Isabella Tadeo, ARCHANA [address] [place] [address] documented as of this encounter Visit Diagnoses Not on filedocumented in this encounter Additional Health Concerns Assessment Noted Time PHQ-9 Depression Total Score: 11 024 8:48 AM EDT documented as of this encounter Care Teams Compilation Clerk Relationship Specialty Start Date End Date Shahida Toledo FNP [address] [place] [address] PCP - General Family Medicine 12/26/21 documented as of this encounter
--- OUTSIDE RECORDS SUMMARY | 2025-01-07 12:03 | XMS_ITS | Encounter Summary ---
Author Organization [employer] Address [address] [facility] [address] [place] [address] Care Team Providers Care List Of First Job Ideas Name Role Phone Shahida Toledo Primary Care Provider [phone] Reason for Visit * Reason Comments Med Refill Encounter Details Date Type Department Care Team ([facility] Contact Info) Description 09/17/2022 Refill [facility] MEDICINE [address] [place] [address] Shahida Toledo FNP [address] [place] [address] Other chronic pain; Chronic low back pain, [...] Department Care Team (Late Contact Info) Description 01/21/2025 9:00 AM EDT Nutrition [facility] DIABETES/NUTRITION [address] [place] [address] [place] [address] 02/07/2025 9:30 AM EDT Clinical Support [facility] MED & PEDS [address] [place] [address] 04/27/2025 9:00 AM EST Clinical Support [facility] MED & PEDS [address] [place] [address] Isabella Tadeo, RN [address] [place] [address] documented as of this encounter Visit Diagnoses Diagnosis Other chronic pain Chronic low back pain, unspecified back pain laterality, unspecified whether sciatica present documented in this encounter Additional Health Concerns Assessment Noted Time PHQ-9 Depression Total Score: 10 023 9:01 AM EDT documented as of this encounter Care Teams List Of First Job Ideas Relationship Specialty Start Date End Date Shahida Toledo FNP [address] [place] [address] PCP - General Family Medicine 12/26/21 documented as of this encounter
--- OUTSIDE RECORDS SUMMARY | 2025-01-07 12:03 | XMS_ITS | Encounter Summary ---
Author Organization [employer] Address [address] [facility] [address] [place] [address] Care Team Providers Care Fruit Picker Machine Operator Name Role Phone Shahida Toledo Primary Care Provider [phone] Reason for Visit * Reason Onset Date Comments Appointment Request 08/19/2024 Encounter Details Date Type Department Care Team ([facility] Contact Info) Description 08/19/2024 Telephone [facility] MEDICINE [address] [place] [address] Shahida Toledo FNP [address] [place] [address] Appointment Request Social History Tobacco Use Types [...] Depo appt from 08/18/24. Contact pt at [phone] documented in this encounter Plan of Treatment Upcoming Encounters Date Type Department Care Team (Late st Contact Info) Description 01/21/2025 9:00 AM EDT Nutrition [facility] DIABETES/NUTRITION [address] [place] [address] [place] [address] 02/07/2025 9:30 AM EDT Clinical Support [facility] MED & PEDS [address] [place] [address] 04/27/2025 9:00 AM EST Clinical Support [facility] MED & PEDS [address] [place] [address] Isabella aTdeo, ARCHANA [address] [place] [address] documented as of this encounter Visit Diagnoses Not on filedocumented in this encounter Additional Health Concerns Assessment Noted Time PHQ-9 Depression Total Score: 11 024 8:48 AM EDT documented as of this encounter Care Teams Fruit Picker Machine Operator Relationship Specialty Start Date End Date Shahida Toledo FNP [address] [place] [address] PCP - General Family Medicine 12/26/21 documented as of this encounter
--- OUTSIDE RECORDS SUMMARY | 2025-01-07 12:03 | XMS_ITS | Clinical Summary ---
Author Organization [employer] Address [address] [facility] [address] [place] [address] Care Team Providers Care Steel Plate Printer Name Role Phone Shahida Toledo KAMILA Primary Care Provider [phone] Allergies No known active allergies Medications * This document contains information received from the source organization and may not represent a complete record from that organization. varenicline (Chantix) 1 MG tabletIndication s:Cigarette smoker Take 1 tablet (1 mg) by mouth 2 times daily. Duration: Goal to continue maintenance dose for 3 months 30 tablet 1 01/19/20 24 Active Varenicline Tartrate, Starter, (Chantix Starting Month Nasir) 0.5 MG X 11 & 1 MG X 42 tablet therapy packIndications: Cigarette smoker Take 0.5 mg by mouth Once daily for 3 days, THEN 0.5 mg 2 times daily for 4 days, THEN 1 mg 2 times daily for 21 days. 53 each 01/19/20 24 Active cyclobenzaprine (Flexeril) 5 MG tablet TAKE 1 TABLET BY MOUTH THREE TIMES DAILY IN THE MORNING, AT NOON, AND AT BEDTIME NEEDED FOR MUSCLE SPASMS 90 tablet 1 02/16/20 24 Active lidocaine (Lidoderm) 5 % patch APPLY 1 PATCH TOPICALLY LEAVE ON FOR 12 HOURS AND OFF FOR 12 HOURS IF NEEDED FOR PAIN DIRECTED BY MD. 30 patch 11 02/20/20 24 Active cloNIDine (Catapres) 0.1 MG tablet Take 0.1 mg by mouth 2 times daily. 10/02/19 25 Active mirtazapine (Remeron) 7.5 MG tablet TAKE ONE TABLET EVERY NIGHT 10/02/19 25 Active sertraline (Zoloft) 100 MG tablet Take 100 mg by mouth Once per day. 10/02/19 25 Active medroxyPROGESTER one (Depo-Provera) 150 MG/ML injectionIndicat ions:Encounter for surveillance of injectable contraceptive Inject 1 mL (150 mg) into the muscle every 3 (three) months. 1 mL 3 11/10/19 25 Active cholecalciferol (Vitamin D-3) 25 MCG (1000 UT) tablet Take 1 tablet (25 mcg) by mouth Once per day. 90 tablet 3 11/23/19 25 Active traMADol (Ultram) 50 MG tabletIndication s:Other chronic pain,Chronic low back pain, unspecified back pain laterality, unspecified whether sciatica present TAKE 1 TABLET BY MOUTH TWICE DAILY IN THE MORNING AND AT BEDTIME NEEDED FOR SEVERE PAIN 45 tablet 12/22/19 25 Active naloxone (Narcan) 4 mg/0.1 mL nasal spray Administer 1 spray (4 mg) into affected nostril(s) if needed for opioid reversal. May repeat every 2-3 minutes if needed, alternating nostrils, until medical assistance becomes available. 2 each 2 12/24/19 25 2025 Active traMADol (Ultram) 50 MG tabletIndication s:Other chronic pain,Chronic low back pain, unspecified back pain laterality, unspecified whether sciatica present TAKE 1 TABLET BY MOUTH TWICE DAILY IN THE MORNING AND AT BEDTIME NEEDED FOR SEVERE PAIN 45 tablet 11/10/19 25 2024 Discontinued ergocalciferol (Vitamin D2) 1.25 MG (05884 UT) capsule Take 1 capsule (1.25 mg) by mouth 1 (one) time per week. 6 capsule 11/23/19 25 2024 Hospital, Clinic, or Other Facility Administered Medication Ordered Dose Route Frequency Start Date End Date Status medroxyPROGESTERone (Depo-Provera) injection 150 mgIndications:Depo-Pro vera contraceptive status 150 mg IM Every 3 months 05/14/2024 05/09/2025 Active Active Problems Problem Noted Date Diagnosed Date Thoracic spondylosis 10/29/2024 Assessment & Plan (10/29/2024 8:48 AM EDT): See M54.5 Myofascial low back pain 03/15/2024 Overview (10/29/2024): Following with [facility] - CLERK CASHIER Eliel Completed bilat diagnostic T8, T9, T10 [...] with addition of other modalities. Following with RECONDITIONING ASSOCIATE RN Cyclobenzaprine 5mg TID PRN lidocaine patches [...] office -Referral to physical therapy ([facility] in [place]) -Recommended [facility] acupuncture clinic -Referral to 01/19/24 -Pain [...] office -Referral to physical therapy ([facility] in [place]) -Recommended [facility] acupuncture clinic -Referral to 01/19/24 -Referral to Pain Medicine 01/19/24 Vitamin D deficiency 02/16/2024 Overview (02/16/2024): Started on Vit D 50,000 weekly x 8 weeks on 02/16/24 Lab Results Component Value Date [id number] 5.5 (L) 02/06/2024 Anxiety 02/05/2024 Assessment & Plan (10/29/2024 12:55 PM EDT): : Following w/ therapist every 2-3 weeks Psych prescriber: ROHITH BENAVIDES APRN Current medication regimen includes sertraline, mirtazapine, and clonidine Denies any acute safety concerns, engaged with care Intermittent chest pain 01/25/2024 Overview (10/29/2024): [facility] Cards consult Feb 2024 EKG NSR, plan for treadmill stress test Assessment & Plan (10/29/2024 12:19 PM EDT): Reports stress test result was normal, will plan to request from [facility] Assessment & Plan (01/25/2024 7:59 PM [...] 39y/o Last PE: 01/19/24 OPH: following with [facility] Eye [facility] Dental: established with dental [...] chronic low back pain, generalized arthralgias Last RECONDITIONING ASSOCIATE Agreement: 04/24/23 Tier III (RECONDITIONING ASSOCIATE visit every 4 months) Assessment & Plan [...] office -Referral to physical therapy ([facility] in [place]) -Recommended [facility] acupuncture clinic -Referral to 01/19/24 -Referral [...] at dental office -Referral to physical therapy ([facility] [place]) -Recommended [facility] acupuncture clinic Assessment & Plan (01/28/2023 [...] dental office -Referral to physical therapy -Recommended [facility] acupuncture clinic Assessment & Plan (09/08/2022 [...] to new PT location -Pt will trial [facility] acupuncture clinic (recommended at least 3 [...] Encounters Date Type Department Care Team Description 01/07/2025 10:30 AM EDT Office Visit [facility] OPTOMETRY [address] [place] [address] Ge, María, OD Myopia of both eyes (Primary Dx); 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 01/07/2025 Travel 12/23/2024 9:00 AM EDT Clinical Support [facility] [address] [place] [address] Isabella Tadeo RN Chronic low back pain, unspecified back pain laterality, unspecified whether sciatica present 12/23/2024 Refill [facility] [address] [place] [address] Isabella Tadeo RN 12/23/2024 Travel 12/21/2024 Refill [facility] [address] [place] [address] Shahida Toledo FNP Other chronic pain; Chronic low back pain, unspecified back pain laterality, unspecified whether sciatica present 12/17/2024 Telephone [facility] MEDICINE [address] [place] [phone] Shahida Toledo FNP Referral 12/16/2024 Travel 11/22/2024 Orders Only [facility] MED[facility]INE [address] [place] [phone] More Wong MD 11/19/2024 Results Follow-Up [facility] [address] [place] [phone] More Wong MD Vitamin D, 25-Hydroxy, Total, Immunoassay 11/12/2024 9:30 AM EDT Clinical Support [facility] [address] [place] [address] April Jimenes, ARCHANA Encounter for surveillance of injectable contraceptive 11/12/2024 Travel 11/09/2024 Refill [facility] [address] [place] [address] Shahida Toledo FNP Encounter for surveillance of injectable contraceptive 11/08/2024 Refill [facility] [address] [place] [address] Shahida Toledo FNP Other chronic pain; Chronic low back pain, unspecified back pain laterality, unspecified whether sciatica present 10/29/2024 8:30 AM EDT Office Visit [facility] [address] [place] [address] Shahida Toledo FNP Intermittent chest pain (Primary Dx); Myofascial low back pain; Thoracic spondylosis; Healthcare maintenance; Decreased appetite; Anxiety 10/29/2024 Telephone [facility] [address] [place] [address] Shahida Toledo FNP 10/29/2024 Travel 10/29/2024 Telephone [facility] [address] [place] [address] Shahida Toledo FNP chart prep 10/13/2024 Refill [facility] [address] [place] [address] Shahida Toledo FNP Other chronic pain; Chronic [...] Info) Description 01/21/2025 9:00 AM EDT Nutrition [facility] DIABETES/NUTRITION [address] [place] [address] [place] [address] 02/07/2025 9:30 AM EDT Clinical Support [facility] [address] [place] [address] 04/27/2025 9:00 AM EST Clinical Support [facility] [address] [place] [address] Isabella Tadeo, RN [address] [place] [address] Health Maintenance Due Date Last Done Comments [...] Comments POCT LINETTE-14 URINE DRUG SCREEN Routine 12/23/2024 8:51 AM EDT Chronic low back pain, unspecified back pain laterality, unspecified whether sciatica present TSH W/REFLEX TO FT4 Routine 11/12/2024 9 [...] Relevant to Health Maintenance Results * (ABNORMAL) POCT LINETTE-14 Urine Drug Screen (12/23/2024 8:51 AM EDT) THC Positive(A) Negative Cocaine Screen, Urine Negative Negative Opiate Screen, Urine Negative Negative Methamphetamine Screen Urine Negative Negative Amphetamine Screen, Urine Negative Negative Benzodiazepines Screen, Urine Negative Negative Barbiturate Screen, Urine Negative Negative Methadone Screen, Urine Negative Negative Buprenophine Screen, Urine Negative Negative TCA, Urine Positive(A) Negative MDMA Urine Negative Negative ng/mL Oxycodone Screen, Urine Negative Negative Phencyclidine (PCP), Urine Negative Negative Propoxyphene, Urine Negative Negative Fentanyl, Urine Negative Negative Urine Urine specimen obtained by clean catch procedure / Unknown 12/23/2024 8:51 AM EDT Narrative Isabella Tadeo RN - 12/23/2024 8:51 AM EDT Internal Pass Control Lot# [id number] Exp: 02-18-26 Shahida TREVIÑO POINT OF CARE TEST ENTER/EDIT ORDERABLES Final Result * (ABNORMAL) Vitamin D, 25-Hydroxy, Total, Immunoassay (11/12/2024 9:33 AM EDT) Vitamin D 25-OH Total 11.4(L) >30 ng/mL [facility] Comment: Health Based Reference Values*< 20 ng/mL [id number] ng/mL Insufficient> 30 ng/mL Sufficient*Holick MF. N Engl J Med. 2007;357:266-280There is no [...] 11/12/2024 1:50 PM EDT us Shahida Toledo MIXING PLACE SUPERVISOR LAB BLOOD ORDERABLES Final Res ult [facility] [address] [place] [phone] * Vitamin B12/Folate, Serum Panel (11/12/2024 9:33 AM EDT) Vitamin B12 319 200 - 900 pg/mL [facility] Comment:NORMAL 200-900 PG/ML INDETERMINATE 160-199 PG/ML DEFICIENT < 160 PG/ML Folate 5.1 > or = 4.0 ng/mL [facility] Comment:Reference Values:> o r = 4.0 ng/mL< 4.0 ng/mL suggests folate deficiency Methotrexate, aminopterin and folinic acid(leucovorin) are chemotherapeutic agents whose molecularstructures are similar to folate; therefore, the Architectfolate assay cannot be used for patients using these drugs. Blood Venous blood specimen / Unknown 11/12/2024 9:33 AM EDT 11/12/2024 1:50 PM EDT us Shahida Toledo MIXING PLACE SUPERVISOR LAB BLOOD ORDERABLES Final Res ult Performing Organization Address City/[facility]/ZIP Co de Phone Number [facility] [address] [place] [phone] * TSH W/Reflex to FT4 (11/12/2024 9:33 AM EDT) TSH reflex Free T4 0.46 0.32 - 4.0 uIU/mL [facility] Blood Venous blood specimen / Unknown 11/12/2024 9:33 AM EDT 11/12/2024 1:50 PM EDT us Shahida Toledo MIXING PLACE SUPERVISOR LAB BLOOD ORDERABLES Final Res ult Performing Organization Address [facility] Co de Phone Number [facility] [address] [place] [phone] * (ABNORMAL) CBC auto differential (11/12/2024 9:33 AM EDT) White Blood Count 6.7 4.8 - 10.8 X10*3/uL [facility] Red Blood Count 3.81(L) 4.20 - 5.50 X10*6/uL [facility] Hemoglobin 11.8(L) 12.0 - 16.0 g/dl [facility] Hematocrit 35.3(L) 37.0 - 47.0 % [facility] Mean Corpuscular Volume 92.7 80.0 - 98.0 fL [facility] Mean Corpuscular Hemoglobin 31.0 27.0 - 33.0 pg [facility] Mean Corpuscular HGB Conc 33.4 31.0 - 35.0 g/dl [facility] Red Cell Distribution Width 13.0 11.0 - 16.0 % [facility] Platelet Count 288 160 - 400 X10*3/uL [facility] Mean Platelet Volume 10.0 9.4 - 12.3 fL [facility] Neutrophils Percent Auto 61.2 45 - 73 % [facility] Imm Gran Pct Auto 0.1 0.0 - 0.4 % [facility] Lymphocytes Percent Auto 29.3 20 - 40 % [facility] Monocytes Percent Auto 5.7 2 - 11 % [facility] Eosinophils Percent Auto 2.5 0 - 4 % [facility] Basophils Percent Auto 1.2 0 - 2 % [facility] NRBC Pct Auto 0.0 0.0 - 0.2 /100WBC [facility] Neutrophils Absolute Auto 4.1 2.0 - 8.3 x10*3/uL [facility] Imm Gran Abs Auto 0.01 0.00 - 0.03 X10*3/uL [facility] Lymphocytes Absolute Auto 2.0 1.2 - 4.9 X10*3/uL [facility] Monocytes Absolute Auto 0.4 0.1 - 1.2 X10*3/uL [facility] Eosinophils Absolute Auto 0.2 0.0 - 0.4 X10*3/uL [facility] Basophils Absolute Auto 0.1 0.0 - 0.2 X10*3/uL [facility] NRBC Abs Auto 0.000 0.0 - 0.012 X10*3/uL [facility] Blood Venous blood specimen / Unknown 11/12/2024 9:33 AM EDT 11/12/2024 1:50 PM EDT us Shahida Toledo MIXING PLACE SUPERVISOR LAB BLOOD ORDERABLES Final Res ult [facility] [address], [place] [phone] * Magnesium (11/12/2024 9:33 AM EDT) Magnesium 2.1 1.6 - 2.6 mg/dL [facility] Blood Venous blood specimen / Unknown 11/12/2024 9:33 AM EDT 11/12/2024 1:50 PM EDT us Shahida Toledo MIXING PLACE SUPERVISOR LAB BLOOD ORDERABLES Final Res ult Performing Organization Address City/[facility]/ZIP Co de Phone Number [facility] [address] [place] [phone] * (ABNORMAL) Comprehensive Metabolic Panel (11/12/2024 9:33 AM EDT) Sodium 140 135 - 145 mmol/L [facility] Potassium 3.6 3.3 - 5.1 mmol/L [facility] Chloride 109(H) 96 - 108 mmol/L [facility] Carbon Dioxide 24 22 - 29 mmol/L [facility] Anion Gap 11(L) 12 - 20 [facility] Urea Nitrogen (BUN) 6(L) 9 - 16 mg/dL [facility] Creatinine, Serum 0.75 0.5 - 1.4 mg/dL [facility] Estimated Glomerular Filt Rate >60 [facility] Comment:Chronic Kidney Disea se: Estimated GFR < 60 mL/min/1.76x8Gwaoio Kidney Disease: Estimated GFR < 15 mL/min/1.73m2 Glucose 103 60 - 115 mg/dL [facility] Calcium 8.4 8.4 - 10.2 mg/dL [facility] Bilirubin, Total 0.5 0.0 - 1.0 mg/dL [facility] Aspartate Amino Transferase 19 5 - 31 U/L [facility] Alanine Aminotransferase 10 0 - 31 U/L [facility] Total Protein 6.9 6.5 - 8.0 g/dL [facility] Albumin Level 4.2 3.5 - 5.0 g/dL [facility] Alkaline Phosphatase 52 39 - 117 U/L [facility] Blood Venous blood specimen / Unknown 11/12/2024 9:33 AM EDT 11/12/2024 1:50 PM EDT us Shahidazina Toledo MIXING PLACE SUPERVISOR LAB BLOOD ORDERABLES Final Res ult [facility] [address] [place] [phone] * Hepatitis C Viral RNA, Quantitative, Real-Time PCR (02/06/2024 7:57 AM EDT) Pathologist [facility] Hepatitis C Viral Load <15 NOT DETECTED NOT DETECTED IU/mL [facility] HCV Log PCR <1.18 NOT DETECTED NOT DETECTED Log IU/mL [facility] Comment:For additional infor linarebecca, please refer tohttp://education.SkillSurvey/faq/YBU17e9(This link is being provided for informational/educational purposes only.)THIS TEST WAS PERFORMED AT:[facility] [place] [phone] SALAZAR MD Blood 02/06/2024 7:57 AM EDT 02/06/2024 7:57 AM EDT Shahida Toledo MIXING PLACE SUPERVISOR LAB BLOOD ORDERABLES Final Res ult [facility] [address] [place] [phone] * HIV-1/2 Antigen and Antibodies, Fourth Generation, with Reflexes (02/06/2024 7:57 AM EDT) Pathologist [facility] HIV AB/AG Nonreactive Nonreactive [facility] Comment:HIV-1 p24 Ag and/or HIV-1/HIV-2 Ab not detected.A test result that is nonreactive does not exclude thepossibility of exposure to or infection with HIV-1 and/orHIV-2. Nonreactive results in this assay for individualswith prior exposure to HIV-1 and/or HIV-2 may be due toantigen and antibody levels that are below the limit ofdetection of this assay.The [employer] HIV Ag/Ab Combo assay result andsupplemental assay results should be interpreted inconjunction with the patient's clinical presentation,history and other laboratory results. If the results areinconsistent with clinical evidence, additional testing issuggested to confirm the result. Blood Venous blood specimen / Unknown 02/06/2024 7:57 AM EDT 02/06/2024 7:57 AM EDT Shahida Toledo [facility] BLOOD ORDERABLES Final Res ult Performing Organization Address [facility] Co de Phone Number [facility] [address] [place] [phone] * Lipid Panel, Standard (02/06/2024 7:57 AM EDT) Triglycerides 31 <150 mg/dL [facility] Comment:Desirable Triglyceri de: less than 150 mg/dLBorderline High Triglyceride 150-199 mg/dLHigh Triglyceride: 200-499 mg/dLVery High Triglyceride: greater than or equal to 5OO mg/dL Cholesterol 126 <200 mg/dL [facility] Comment:Desirable Cholestero l: less than 200 mg/dLBorderline High Cholesterol: 200-239 mg/dLHigh Cholesterol: greater than 239 mg/dL LDL Cholesterol Calculated 64 <100 mg/dL [facility] Comment:Desirable LDL: less than 100 mg/dLNear Optimal/Above Optimal LDL: 110- 129 mg/dLBorderline High LDL: 130-159 mg/dLHigh LDL: 160-189 mg/dLVery High LDL: greater than or equal to 190 mg/dL HDL Cholesterol 56 >40 mg/dL [facility] Comment:Desirable HDL: great er than 40 mg/dL Note: This HDL assay may give artificially low results in patients with liver disease. Blood Venous blood specimen / Unknown 02/06/2024 7:57 AM EDT 02/06/2024 7:57 AM EDT Shahida Toledo [facility] BLOOD ORDERABLES Final Res ult Performing Organization Address [facility]/ZIP Co de Phone Number [facility] [address] [place] [address] [phone] * THINPREP TIS PAP AND HPV [...] with computer assisted technology. [facility] Shared Services Manager : SEE COMMENT [facility] Comment: WAC, CT(ASCP) CT screening location: [place] [address] HPV nRNA E6/E7 Not Detected Not Detected [facility] Comment: Methodology: Drawing Machine Operator-Mediated Amplification This assay detects E6/E7 viral messenger RNA (mRNA) from 14 high-risk HPV types (16,18,31,33,35,39,45,51,52,56,58,59,66,68). Cervical sources are required for HPV testing. If a vaginal source from a patient who has had a total hysterectomy with removal of cervix was submitted, please contact the testing laboratory for alternative testing options. For additional information, please refer to http://education.SkillSurvey/faq/GSP546l9 (This link if provided for information/ educational purposes only.) Infection Fungal organisms morphologically consistent with Al spp. [facility] Interpretation/R esult: Negative [...] present. 01/23/2022 2:06 PM EDT Shahida Toledo [facility] PATHOLOGY ORDERABLES Final Result [facility] from Last 3 Months or Most Recently Relevant to Health Maintenance Insurance Care Teams Steel Plate Printer Relationship Specialty Start Date End Date Shahida Toledo FNP [address] [place] [phone] PCP - General Family Medicine 12/26/21
== END 2025-01-07 11:43 | disposition home or self-care (01) ==
LOC: HO.PMC 11:25
PROVIDERS: PCP Registered Nurse; Visit Provider Registered Nurse Emergency
DX: M54.6 Pain in thoracic spine (principal); M47.814 Spondylosis without myelopathy or radiculopathy, thoracic region
CPT/HCPCS: 99213

== ENCOUNTER → 2025-01-07 11:24 | Outpatient (BNVA) | payer MEDICAID, SELFPAY | PROVIDERS: PCP Registered Nurse; Visit Provider Registered Nurse Emergency | DX: M47.814 Spondylosis without myelopathy or radiculopathy, thoracic region (principal); M54.6 Pain in thoracic spine | CPT/HCPCS: 99212 ==

== ENCOUNTER 2025-02-04 08:49 | Outpatient (AMB) | payer MEDICAID, SELFPAY ==
--- NOTE | 2025-02-04 08:52 | MHC.OFFVIS ---
Vital Signs 02/04/25 08:53 Height 5 ft 1 in Weight 108 lb BMI 20.4 BP 111/74 Blood Pressure Location Rt brachial Position Sitting Respiration 16 Pulse 100 Pulse Source Pulse Oximeter Pulse Oximetry (%) 95 Oxygen Delivery Method Room Air Intake Visit Reasons: Removal: RIGHT T5 SPRINT PNS 12/07/24 Intake Note: Sprint removal right side, Tip Intact. Left side dressing changed. Remote Sensing Surveyor Required: No Accompanied by: Self / Same As Patient Allergies No Known Allergies (No Known Allergies*) Allergy (Verified 02/04/25 08:53) HPI Comments Details: The patient is a 39-year-old female presenting for right thoracic sprint removal. The patient reports significant improvement in her back pain following the insertion of a device, with current pain levels at 2-3 compared to previous levels of 8-9. She experiences increased pain when not using the device, particularly during work activities. Physical therapy has been recommended to enhance recovery, especially after the removal of the remaining wire. The patient is advised to continue with physical therapy exercises now that her pain is more manageable. - Pain level reduced from 8-9 to 2-3 after device insertion - Pain exacerbated by work activities when not using the device - Affect: Patient reports feeling better overall with reduced pain levels. - Analgesia: Pain reduced from 8-9 to 2-3 with device use. - Activities of Daily Living: Pain interferes with work activities when not using the device. [facility] Medical History (Updated 09/28/24 @ 16:17 by Brant Concepcion MD) Major depression Review of Systems Const Details: - Musculoskeletal: Reports chronic back pain, improved with device use. Physical Exam Exam Exam: General: awake, alert, oriented. Answers questions appropriately. Fully engaged in examination. Skin: warm, dry, intact HEENT: Normocephalic. Hearing intact. Cardiac: External chest normal in appearance. Respiratory: No cough, audible wheezing or stridor. Abdomen: without gross distension. MS: No obvious swelling or deformities. Able to transition from sit to stand unassisted. Neurological: Oriented to person, place, time and situation. Thought process intact. No gait abnormalities appreciated. Psychiatric: Appropriate mood and affect. Good judgment and insight. Sprint removal: Dressing removed, Site dry, clean, intact. Area cleansed with chloraprep, lead removed with intact tip. Sprint dressing applied to remaining lead. Patient tolerated removal well. Vital Signs: Last Vital Signs Pulse 100 02/04/25 08:53 Resp 16 02/04/25 08:53 BP 111/74 02/04/25 08:53 Pulse Ox 95 02/04/25 08:53 Oxygen Delivery Method Room Air 02/04/25 08:53 BMI result Body Mass Index 20.4 Results Reviewed Results Reviewed: 08/05/2022 XR/XR cervical spine 5V FINDINGS: Bone alignment is normal. No fracture or dislocation. Normal disc spaces. Neural foramen are patent. Normal prevertebral soft tissues. IMPRESSION: Unremarkable examination. Assessment & Plan Assessment & Plan (1) Thoracic back pain: Code(s): M54.6 - Pain in thoracic spine Category: Medical (2) Spondylosis of thoracic spine: Code(s): M47.814 - Spondylosis without myelopathy or radiculopathy, thoracic region Category: Medical Plan The management plan includes continued use of the device to maintain reduced pain levels, with plans to remove the remaining wire in two weeks. The patient is advised to engage in physical therapy or home exercises to support recovery and manage pain effectively, particularly during work activities. Patient was informed and verbally consented to the use of an ambient scribe for clinic note documentation during this visit. Patient Instructions: - Continue using the device to manage back pain. - Engage in physical therapy or perform home exercises to support recovery. - Return for wire removal in two weeks. Coding Level of Care Code Est Pt Level 3 (30544) Complex EM visit Add On G2211 Diagnoses Thoracic back pain M54.6 Spondylosis of thoracic spine M47.814
[2025-02-04 08:53] VITALS: BP 111/74; PULSE 100; RESP 16; O2SAT 95; BMI 20.4
--- OUTSIDE RECORDS SUMMARY | 2025-02-04 09:20 | XMS_ITS | Encounter Summary ---
Author Organization [employer] Address [address] [facility] [address] [place] [address] Care Team Providers Care Courier Driver Name Role Phone Shahida Toledo Primary Care Provider [phone] Reason for Visit * Reason Comments Med Refill Encounter Details Date Type Department Care Team ([facility] Contact Info) Description 09/17/2022 Refill [facility] [address] [place] [address] Shahida Toledo FNP [address] [place] [address] Other chronic pain; Chronic low back pain, [...] Department Care Team (Late Contact Info) Description 02/07/2025 9:30 AM EDT Clinical Support [facility] [address] [place] [address] 04/27/2025 9:00 AM EST Clinical Support [facility] [address] [place] [address] Isabella Tadeo, RN [address] [place] [address] documented as of this encounter Visit Diagnoses Diagnosis Other chronic pain Chronic low back pain, unspecified back pain laterality, unspecified whether sciatica present documented in this encounter Additional Health Concerns Assessment Noted Time PHQ-9 Depression Total Score: 10 023 9:01 AM EDT documented as of this encounter Care Teams Courier Driver Relationship Specialty Start Date End Date Shahida Toledo FNP [address] [place] [id number] PCP - General Family Medicine 12/26/21 documented as of this encounter
--- OUTSIDE RECORDS SUMMARY | 2025-02-04 09:20 | XMS_ITS | Encounter Summary ---
Author Organization [employer] Address [address] [facility] [address] [place] [address] Care Team Providers Care Universal Worker Assisted Living Name Role Phone Shahida Toledo ASSESSMENT DIRECTOR Primary Care Provider [phone] Encounter Details Date Type Department Care Team ([facility] st Contact Info) Description 11/22/2024 Orders Only [facility] [address] [place], [place] [phone] More Wong MD [address] [place], [place] [phone] Social History Tobacco Use Types Packs/Day Years [...] Upcoming Encounters Date Type Department Care Team ([facility] st Contact Info) Description 02/07/2025 9:30 AM EDT Clinical Support [facility] [address] [place] [address] 04/27/2025 9:00 AM EST Clinical Support [facility] [address] [place] [address] Isabella Tadeo, RN [address] [place] [address] documented as of this encounter Visit Diagnoses Not on filedocumented in this encounter Additional Health Concerns Assessment Noted Time PHQ-9 Depression Total Score: 12 025 9:14 AM EDT documented as of this encounter Care Teams Universal Worker Assisted Living Relationship Specialty Start Date End Date Shahida Toledo FNP [address] [place] [id number] PCP - General Family Medicine 12/26/21 documented as of this encounter
--- OUTSIDE RECORDS SUMMARY | 2025-02-04 09:20 | XMS_ITS | Encounter Summary ---
Author Organization [employer] Address [address] [facility] 7[address] [place] [address] Care Team Providers Care Senior Front End Engineer Name Role Phone Shahida Toledo Primary Care Provider [phone] Reason for Visit * Reason Onset Date Comments Appointment Request 08/19/2024 Encounter Details Date Type Department Care Team ([facility] Contact Info) Description 08/19/2024 Telephone [facility] [address] [place] [address] Shahida Toledo FNP [address] [place] [address] Appointment Request Social History Tobacco Use Types [...] Depo appt from 08/18/24. Contact pt at [phone] documented in this encounter Plan of Treatment Upcoming Encounters Date Type Department Care Team ([facility] st Contact Info) Description 02/07/2025 9:30 AM EDT Clinical Support [facility] [address] [place] [address] 04/27/2025 9:00 AM EST Clinical Support [facility] [address] [place] [address] Isabella Tadeo RN [address] [place] [address] documented as of this encounter Visit Diagnoses Not on filedocumented in this encounter Additional Health Concerns Assessment Noted Time PHQ-9 Depression Total Score: 11 024 8:48 AM EDT documented as of this encounter Care Teams Senior Front End Engineer Relationship Specialty Start Date End Date Shahida Toledo FNP [address] [place] [address] PCP - General Family Medicine 12/26/21 documented as of this encounter
--- OUTSIDE RECORDS SUMMARY | 2025-02-04 09:20 | XMS_ITS | Encounter Summary ---
Author Organization [employer] Address [address] [facility] [address] [place] [address] Care Team Providers Care Sheet Taker Name Role Phone Shahida Toledo Primary Care Provider [phone] Reason for Visit * Reason Onset Date Comments Appointment Request 06/30/2024 Encounter Details Date Type Department Care Team ([facility] Contact Info) Description 06/30/2024 Telephone [facility] [address] [place] [address] Shahida Toledo FNP [address] [place] [address] Appointment Request Social History Tobacco Use Types [...] R/s Appt from 07/01/24. Contact pt at [phone] documented in this encounter Plan of Treatment Upcoming Encounters Date Type Department Care Team ([facility] st Contact Info) Description 02/07/2025 9:30 AM EDT Clinical Support [facility] [address] [place] [address] 04/27/2025 9:00 AM EST Clinical Support [facility] [address] [place] [address] Isabella Tadeo RN [address] [place] [address] documented as of this encounter Visit Diagnoses Not on filedocumented in this encounter Additional Health Concerns Assessment Noted Time PHQ-9 Depression Total Score: 11 024 8:48 AM EDT documented as of this encounter Care Teams Sheet Taker Relationship Specialty Start Date End Date Shahida Toledo FNP [address] [place] [address] PCP - General Family Medicine 12/26/21 documented as of this encounter
--- OUTSIDE RECORDS SUMMARY | 2025-02-04 09:20 | XMS_ITS | Clinical Summary ---
Author Organization [employer] Address [address] [facility] [address] [place] [address] Care Team Providers Care Bindery Manager Name Role Phone Shahida Toledo KAMILA Primary Care Provider [phone] Allergies No known active allergies Medications * This document contains information received from the source organization and may not represent a complete record from that organization. varenicline (Chantix) 1 MG tabletIndication s:Cigarette smoker Take 1 tablet (1 mg) by mouth 2 times daily. Duration: Goal to continue maintenance dose for 3 months 30 tablet 1 Active Varenicline Tartrate, Starter, (Chantix Starting Month ) 0.5 MG X 11 & 1 MG X 42 tablet therapy packIndications: Cigarette smoker Take 0.5 mg by mouth Once daily for 3 days, THEN 0.5 mg 2 times daily for 4 days, THEN 1 mg 2 times daily for 21 days. 53 each Active lidocaine (Lidoderm) 5 % patch APPLY 1 PATCH TOPICALLY LEAVE ON FOR 12 HOURS AND OFF FOR 12 HOURS IF NEEDED FOR PAIN DIRECTED BY MD. 30 patch 11 024 Active cloNIDine (Catapres) 0.1 MG tablet Take 0.1 mg by mouth 2 times daily. Active mirtazapine (Remeron) 7.5 MG tablet TAKE ONE TABLET EVERY NIGHT Active sertraline (Zoloft) 100 MG tablet Take 100 mg by mouth Once per day. Active medroxyPROGESTER one (Depo-Provera) 150 MG/ML injectionIndicat ions:Encounter for surveillance of injectable contraceptive Inject 1 mL (150 mg) into the muscle every 3 (three) months. 1 mL 3 025 Active cholecalciferol (Vitamin D-3) 25 MCG (1000 UT) tablet Take 1 tablet (25 mcg) by mouth Once per day. 90 tablet 3 025 Active naloxone (Narcan) 4 mg/0.1 mL nasal spray Administer 1 spray (4 mg) into affected nostril(s) if needed for opioid reversal. May repeat every 2-3 minutes if needed, alternating nostrils, until medical assistance becomes available. 2 each 2 025 2025 Active cyclobenzaprine (Flexeril) 5 MG tablet TAKE 1 TABLET BY MOUTH THREE TIMES DAILY IN THE MORNING, AT NOON, AND AT BEDTIME NEEDED FOR MUSCLE SPASMS 90 tablet 1 025 Active traMADol (Ultram) 50 MG tabletIndication s:Other chronic pain,Chronic low back pain, unspecified back pain laterality, unspecified whether sciatica present TAKE 1 TABLET BY MOUTH TWICE DAILY IN THE MORNING AND AT BEDTIME NEEDED FOR SEVERE PAIN 45 tablet 025 Active cyclobenzaprine (Flexeril) 5 MG tablet TAKE 1 TABLET BY MOUTH THREE TIMES DAILY IN THE MORNING, AT NOON, AND AT BEDTIME NEEDED FOR MUSCLE SPASMS 90 tablet 1 024 2024 Discontinued(R eorder (will not trigger [...] back pain 03/15/2024 Overview (10/29/2024): Following with [facility] Pain Management - ROOF TILER Eliel Completed bilat diagnostic T8, T9, T10 [...] with addition of other modalities. Following with AUTOMOTIVE SALES REPRESENTATIVE RN Cyclobenzaprine 5mg TID PRN lidocaine patches [...] office -Referral to physical therapy ([facility] in [place]) -Recommended [facility] acupuncture clinic -Referral to 01/19/24 -Pain Management: [...] office -Referral to physical therapy ([facility] in [place]) -Recommended [facility] acupuncture clinic -Referral to 01/19/24 -Referral to Pain Medicine 01/19/24 Vitamin D deficiency 02/16/2024 Overview (02/16/2024): Started on Vit D 50,000 weekly x 8 weeks on 02/16/24 Lab Results Component Value Date [id number] 5.5 (L) 02/06/2024 Anxiety 02/05/2024 Assessment & Plan (10/29/2024 12:55 PM EDT): : Following w/ therapist every 2-3 weeks Psych prescriber: ROHITH BENAVIDES APRN Current medication regimen includes sertraline, mirtazapine, and clonidine Denies any acute safety concerns, engaged with care Intermittent chest pain 01/25/2024 Overview (10/29/2024): [facility] consult Feb 2024 EKG NSR, plan for treadmill stress test Assessment & Plan (10/29/2024 12:19 PM EDT): Reports stress test result was normal, [facility] Assessment & Plan (01/25/2024 7:59 PM EDT): [...] 39y/o Last PE: 01/19/24 OPH: following with [facility] Dental: established with dental care [...] chronic low back pain, generalized arthralgias Last AUTOMOTIVE SALES REPRESENTATIVE Agreement: 04/24/23 Tier III (AUTOMOTIVE SALES REPRESENTATIVE visit every 4 months) Assessment & Plan [...] at dental office [facility] acupuncture clinic -Referral to 01/19/24 -Referral to [...] at dental office -Referral to physical therapy ([facility] in [place]) -Recommended [facility] acupuncture clinic Assessment & Plan (01/28/2023 8:34 [...] dental office -Referral to physical therapy -Recommended [facility] acupuncture clinic Assessment & Plan (09/08/2022 6:55 [...] to new PT location -Pt will trial [facility] acupuncture clinic (recommended at least 3 sessions) [...] Encounters Date Type Department Care Team Description 01/17/2025 Refill [facility] MED & PEDS [address] [place] [address] Shahida Toledo FNP Other chronic pain; Chronic low back pain, unspecified back pain laterality, unspecified whether sciatica present 01/17/2025 Refill [facility] MED & PEDS [address] [place] [address] Shahida Toledo FNP 01/07/2025 10:30 AM EDT Office Visit [facility] OPTOMETRY [address] [place] [address] Ge, María, OD 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); Dry eyes; Myopia of both eyes 01/07/2025 Travel 12/23/2024 9:00 AM EDT Clinical Support [facility] MED & PEDS [address] [place] [address] Isabella Tadeo RN Chronic low back pain, unspecified back pain laterality, unspecified whether sciatica present 12/23/2024 Refill [facility] MED & PEDS [address] [place] [address] Isabella Tadeo, ARCHANA 12/23/2024 Travel 12/21/2024 Refill [facility] MED & PEDS [address] [place] [address] Shahida Toledo FNP Other chronic pain; Chronic low back pain, unspecified back pain laterality, unspecified whether sciatica present 12/17/2024 Telephone [facility] MEDICINE [address] [place] [address] Shahida Toledo FNP Referral 12/16/2024 Travel 11/22/2024 Orders Only [facility] MEDICINE [address] [place] [address] More Wong MD 11/19/2024 Results Follow-Up [facility] MEDICINE [address] [place], [place] [phone] More Wong MD Vitamin D, 25-Hydroxy, Total, Immunoassay 11/12/2024 9:30 AM EDT Clinical Support [facility] [address] [place] [address] April Jimenes, ARCHANA Encounter for surveillance of injectable contraceptive 11/12/2024 Travel 11/09/2024 Refill [facility] MED & PEDS [address] [place] [address] Shahida Toledo FNP Encounter for surveillance of injectable contraceptive 11/08/2024 Refill [facility] PED[facility] [address] [place] [address] Shahida Toledo FNP Other chronic pain; Chronic [...] Upcoming Encounters Date Type Department Care Team ([facility] st Contact Info) Description 02/07/2025 9:30 AM EDT Clinical Support [facility]ED[facility] [address] [place] [address] 04/27/2025 9:00 AM EST Clinical Support [facility] MED [facility] PEDS [address] [place] [address] Isabella Tadeo, RN [address] [place] [address] Health Maintenance Due Date Last Done Comments Alcohol/Substance Use Screening 1996 HPV Vaccines (1 - 3-dose series) 07/17/1999 Mammogram 2024 Influenza Vaccine (#1) 2024 01/19/2024 SDOH Screening 01/11/2025 01/12/2024 Pap Smear 01/23/2025 01/23/2022 Family Planning (PISQ) [...] procedure / Unknown 12/23/2024 8:51 AM EDT Isabella Herzog RN - 12/23/2024 8:51 AM EDT Internal Pass Control Lot# [id number] Exp: 02-18-26 Shahida Toledo [facility] POINT OF CARE TEST ENTER/EDIT ORDERABLES Final Result * (ABNORMAL) Vitamin D, 25-Hydroxy, Total, Immunoassay (11/12/2024 9:33 AM EDT) Vitamin D 25-OH Total 11.4(L) >30 ng/mL [facility] Comment: Health Based Reference Values*< 20 ng/mL Ohjinfpjw78-45 ng/mL Insufficient> 30 ng/mL Sufficient*Kelly GALLAGHER. N [...] EDT 11/12/2024 1:50 PM EDT Shahida Toledo [facility] LAB BLOOD ORDERABLES Final Res ult Performing Organization Address [facility] Co de Phone Number [facility] [address] [place] [phone] * Vitamin B12/Folate, Serum Panel (11/12/2024 9:33 AM EDT) Vitamin B12 319 200 - 900 pg/mL [facility] Comment:NORMAL 200-900 PG/ML INDETERMINATE 160-199 PG/ML DEFICIENT < 160 PG/ML Folate 5.1 > or = 4.0 ng/mL [facility] Comment:Reference Values:> o r = 4.0 ng/mL< 4.0 ng/mL suggests folate deficiency Methotrexate, aminopterin and folinic acid(leucovorin) are chemotherapeutic agents whose molecularstructures are similar to folate; therefore, the Architectfolate assay cannot be used for patients using these drugs. Blood Venous blood specimen / Unknown 11/12/2024 9:33 AM EDT 11/12/2024 1:50 PM EDT Shahida Toledo [facility] LAB BLOOD ORDERABLES Final Res ult Performing Organization Address [facility] Co de Phone Number [facility] [address] [place] [phone] * TSH W/Reflex to FT4 (11/12/2024 9:33 AM EDT) TSH reflex Free T4 0.46 0.32 - 4.0 uIU/mL [facility] Blood Venous blood specimen / Unknown 11/12/2024 9:33 AM EDT 11/12/2024 1:50 PM EDT us Shahida Toledo [facility] BLOOD ORDERABLES Final Res ult [facility] [address] [place] [phone] * (ABNORMAL) CBC auto differential (11/12/2024 9:33 AM EDT) White Blood Count 6.7 4.8 - 10.8 X10*3/uL [facility] Red Blood Count 3.81(L) 4.20 - 5.50 X10*6/uL [facility] Hemoglobin 11.8(L) 12.0 - 16.0 g/dl [facility] Hematocrit 35.3(L) 37.0 - 47.0 % [facility] Mean Corpuscular Volume 92.7 80.0 - 98.0 fL [facility] Mean Corpuscular Hemoglobin 31.0 27.0 - 33.0 pg [facility] Mean Corpuscular HGB Conc 33.4 31.0 - 35.0 g/dl [facility] Red Cell Distribution Width 13.0 11.0 - 16.0 % [facility] Platelet Count 288 160 - 400 X10*3/uL [facility] Mean Platelet Volume 10.0 9.4 - 12.3 fL [facility] Neutrophils Percent Auto 61.2 45 - 73 % [facility] Imm Gran Pct Auto 0.1 0.0 - 0.4 % [facility] Lymphocytes Percent Auto 29.3 20 - 40 % [facility] Monocytes Percent Auto 5.7 2 - 11 % [facility] Eosinophils Percent Auto 2.5 0 - 4 % [facility] Basophils Percent Auto 1.2 0 - 2 % [facility] NRBC Pct Auto 0.0 0.0 - 0.2 /100WBC [facility] Neutrophils Absolute Auto 4.1 2.0 - 8.3 x10*3/uL [facility] Imm Gran Abs Auto 0.01 0.00 - 0.03 X10*3/uL [facility] Lymphocytes Absolute Auto 2.0 1.2 - 4.9 X10*3/uL [facility] Monocytes Absolute Auto 0.4 0.1 - 1.2 X10*3/uL [facility] Eosinophils Absolute Auto 0.2 0.0 - 0.4 X10*3/uL [facility] Basophils Absolute Auto 0.1 0.0 - 0.2 X10*3/uL [facility] NRBC Abs Auto 0.000 0.0 - 0.012 X10*3/uL [facility] Blood Venous blood specimen / Unknown 11/12/2024 9:33 AM EDT 11/12/2024 1:50 PM EDT Shahida Toledo [facility] BLOOD ORDERABLES Final Res ult Performing Organization Address [facility]/ZIP Co de Phone Number [facility] [address] [place] [phone] * Magnesium (11/12/2024 9:33 AM EDT) Pathologist [facility] Magnesium 2.1 1.6 - 2.6 mg/dL [facility] Blood Venous blood specimen / Unknown 11/12/2024 9:33 AM EDT 11/12/2024 1:50 PM EDT Shahida Toledo [facility] BLOOD ORDERABLES Final Res ult Performing Organization Address City/[facility]/ZIP Co de Phone Number [facility] [address] [place] [phone] * (ABNORMAL) Comprehensive Metabolic Panel (11/12/2024 9:33 AM EDT) Pathologist [facility] Sodium 140 135 - 145 mmol/L [facility] Potassium 3.6 3.3 - 5.1 mmol/L [facility] Chloride 109(H) 96 - 108 mmol/L [facility] Carbon Dioxide 24 22 - 29 mmol/L [facility] Anion Gap 11(L) 12 - 20 [facility] Urea Nitrogen (BUN) 6(L) 9 - 16 mg/dL [facility] Creatinine, Serum 0.75 0.5 - 1.4 mg/dL [facility] Estimated Glomerular Filt Rate >60 [facility] Comment:Chronic Kidney Disea se: Estimated GFR < 60 mL/min/1.15o2Rwbano Kidney Disease: Estimated GFR < 15 mL/min/1.73m2 Glucose 103 60 - 115 mg/dL [facility] Calcium 8.4 8.4 - 10.2 mg/dL [facility] Bilirubin, Total 0.5 0.0 - 1.0 mg/dL [facility] Aspartate Amino Transferase 19 5 - 31 U/L [facility] Alanine Aminotransferase 10 0 - 31 U/L [facility] Total Protein 6.9 6.5 - 8.0 g/dL [facility] Albumin Level 4.2 3.5 - 5.0 g/dL [facility] Alkaline Phosphatase 52 39 - 117 U/L [facility] Blood Venous blood specimen / Unknown 11/12/2024 9:33 AM EDT 11/12/2024 1:50 PM EDT Shahida Toledo [facility] BLOOD ORDERABLES Final Res ult [facility] [address] [place] [phone] * Hepatitis C Viral RNA, Quantitative, Real-Time PCR (02/06/2024 7:57 AM EDT) Hepatitis C Viral Load <15 NOT DETECTED NOT DETECTED IU/mL [facility] HCV Log PCR <1.18 NOT DETECTED NOT DETECTED Log IU/mL [facility] Comment:For additional infor delisa, please refer tohttp://education.Nuve/faq/IAG00a5(This link is being provided for informational/educational purposes only.)THIS TEST WAS PERFORMED AT:[facility] [place] [phone] SALAZAR MD Blood 02/06/2024 7:57 AM EDT 02/06/2024 7:57 AM EDT Shahida Toledo [facility] BLOOD ORDERABLES Final Res ult Performing Organization Address [facility] Co de Phone Number [facility] [address] [place] [phone] * HIV-1/2 Antigen and Antibodies, Fourth Generation, with Reflexes (02/06/2024 7:57 AM EDT) HIV AB/AG Nonreactive Nonreactive [facility] Comment:HIV-1 p24 Ag and/or HIV-1/HIV-2 Ab not detected.A test result that is nonreactive does not exclude thepossibility of exposure to or infection with HIV-1 and/orHIV-2. Nonreactive results in this assay for individualswith prior exposure to HIV-1 and/or HIV-2 may be due toantigen and antibody levels that are below the limit ofdetection of this assay.The Go[employer]yr HIV Ag/Ab Combo assay result andsupplemental assay results should be interpreted inconjunction with the patient's clinical presentation,history and other laboratory results. If the results areinconsistent with clinical evidence, additional testing issuggested to confirm the result. Blood Venous blood specimen / Unknown 02/06/2024 7:57 AM EDT 02/06/2024 7:57 AM EDT Shahida Toledo [facility] BLOOD ORDERABLES Final Res ult Performing Organization Address [facility]/ZIP Co de Phone Number [facility] [address] [place] [phone] * Lipid Panel, Standard (02/06/2024 7:57 AM EDT) Triglycerides 31 <150 mg/dL [facility] Comment:Desirable Triglyceri de: less than 150 mg/dLBorderline High Triglyceride 150-199 mg/dLHigh Triglyceride: 200-499 mg/dLVery High Triglyceride: greater than or equal to 5OO mg/dL Cholesterol 126 <200 mg/dL [facility] Comment:Desirable Cholestero l: less than 200 mg/dLBorderline High Cholesterol: 200-239 mg/dLHigh Cholesterol: greater than 239 mg/dL LDL Cholesterol Calculated 64 <100 mg/dL [facility] Comment:Desirable LDL: less than 100 mg/dLNear Optimal/Above Optimal LDL: 110- 129 mg/dLBorderline High LDL: 130-159 mg/dLHigh LDL: 160-189 mg/dLVery High LDL: greater than or equal to 190 mg/dL HDL Cholesterol 56 >40 mg/dL [facility] Comment:Desirable HDL: great er than 40 mg/dL Note: This HDL assay may give artificially low results in patients with liver disease. Blood Venous blood specimen / Unknown 02/06/2024 7:57 AM EDT 02/06/2024 7:57 AM EDT us Shahida Toledo [facility] BLOOD ORDERABLES Final Res ult [facility] [address] [place] [phone] * THINPREP TIS PAP AND HPV mRNA E6/E7 WITH REFLEX TO HPV 16,18/45 (01/23/2022 2:06 PM EDT) Clinical Information: None given [facility] COMMENT SEE COMMENT CONVERTE D LEGACY [...] been evaluated with computer assisted technology. [facility] Care Connector : SEE COMMENT [facility] Comment: WAC, CT(ASCP) CT screening location: [address] [address] HPV nRNA E6/E7 Not Detected Not Detected [facility] Comment: Methodology: Delphi Developer-Mediated Amplification This assay detects E6/E7 viral messenger RNA (mRNA) from 14 high-risk HPV types (16,18,31,33,35,39,45,51,52,56,58,59,66,68). Cervical sources are required for HPV testing. If a vaginal source from a patient who has had a total hysterectomy with removal of cervix was submitted, please contact the testing laboratory for alternative testing options. For additional information, please refer to http://education.Nuve/faq/PUD517y5 (This link if provided for information/ educational [...] present. 01/23/2022 2:06 PM EDT Shahida Toledo [facility] PATHOLOGY ORDERABLES Final Result Performing Organization Address City/State/[facility] Co de Phone Number [facility] from Last 3 Months or Most Recently Relevant to Health Maintenance Insurance [facility] C[facility] * Guarantor: Ronnie Isidro Account Type Relation to Patient Date of Phone Billing Address Personal/Family Self [address] [id number] Care Teams Bindery Manager Relationship Specialty Start Date End Date Shahida Toledo FNP [address] [place] [phone] PCP - General Family Medicine 12/26/21
== END 2025-02-04 09:18 | disposition home or self-care (01) ==
LOC: HO.PMC 08:50
PROVIDERS: PCP Registered Nurse; Visit Provider Registered Nurse Emergency
DX: M54.6 Pain in thoracic spine (principal); M47.814 Spondylosis without myelopathy or radiculopathy, thoracic region
CPT/HCPCS: 99213

== ENCOUNTER → 2025-02-04 08:49 | Outpatient (BNVA) | payer MEDICAID, SELFPAY | PROVIDERS: PCP Registered Nurse; Visit Provider Registered Nurse Emergency | DX: M47.814 Spondylosis without myelopathy or radiculopathy, thoracic region (principal); M54.6 Pain in thoracic spine | CPT/HCPCS: 99212 ==

== ENCOUNTER 2025-03-21 08:03 | Emergency (ER) | payer MEDICAID, SELFPAY ==
--- NOTE | ~2025-03-21 | US_ITS ---
EXAMINATION: US ABDOMEN LIMITED CLINICAL INFORMATION: Right upper quadrant pain, nausea, vomiting. COMPARISON: None available. TECHNIQUE: Real-time imaging of the right upper quadrant abdominal viscera. FINDINGS: PANCREAS: Visualized portions are unremarkable. LIVER: The liver is normal in size. The liver contour is normal. Parenchymal echogenicity is normal. No focal hepatic lesion. There is no intrahepatic biliary duct dilatation seen. Right lobe measures 14 cm. GALLBLADDER: The gallbladder is physiologically distended without evidence of stones, sludge, polyps, wall thickening or pericholecystic fluid. COMMON BILE DUCT: Normal in caliber measuring 0.1 cm in diameter. FREE FLUID: None. US/US abdomen limited IMPRESSION: Unremarkable right upper quadrant ultrasound. Electronically signed by: Simba Contreras MD 03/21/2025 10:24 AM REGINA
[2025-03-21 08:06] VITALS: BP 118/83; PULSE 100; RESP 18; TEMP 36.6; O2SAT 98; BMI 21.5
[2025-03-21 08:35] LABS: MANUAL DIFF FLAG NO
[2025-03-21 08:40] LABS: Appearance Urine Cloudy; Glucose Urine UA Negative (Negative); PH 8.5 (5.0-9.0); Specific Gravity - Urine >= 1.030 (1.005-1.025); UMIC TRIGGER UACC YES
[2025-03-21 08:40] LABS: Hematocrit 40.2 % (37.0-47.0); Hemoglobin 13.7 g/dl (12.0-16.0); Imm Gran Abs Auto 0.02 X10*3/uL (0.00-0.03); Imm Gran Pct Auto 0.3 % (0.0-0.4); Lymphocytes Absolute Auto 1.3 X10*3/uL (1.2-4.9); Mean Corpuscular HGB Conc 34.1 g/dl (31.0-35.0); Mean Corpuscular Hemoglobin 30.1 pg (27.0-33.0); Mean Corpuscular Volume 88.4 fL (80.0-98.0); NRBC Abs Auto 0.000 X10*3/uL (0.0-0.012); NRBC Pct Auto 0.0 /100WBC (0.0-0.2); Platelet Count 367 X10*3/uL (160-400); Red Blood Count 4.55 X10*6/uL (4.20-5.50); White Blood Count 7.1 X10*3/uL (4.8-10.8)
[2025-03-21 08:41] LABS: UPreg QC Valid YES
[2025-03-21 08:53] LABS: Alanine Aminotransferase 12 U/L (0-31); Albumin Level 4.9 g/dL (3.5-5.0); Alkaline Phosphatase 54 U/L (39-117); Anion Gap 14 (12-20); Aspartate Amino Transferase 23 U/L (5-31); Blood Urea Nitrogen 7 mg/dL (9-16); Calcium 9.4 mg/dL (8.4-10.2); Carbon Dioxide 24 mmol/L (22-29); Chloride 105 mmol/L (96-108); Creatinine Clr Calc Pharmacy 77.8; Estimated Glomerular Filt Rate > 60; Lipase 26 U/L (8-78); Potassium 3.2 mmol/L (3.3-5.1); Sodium 140 mmol/L (135-145); Total Protein 7.9 g/dL (6.5-8.0)
[2025-03-21 09:00] LABS: UACC Culture Trigger YES
--- NOTE | 2025-03-21 09:10 | ED_ITS ---
HPI - Nausea/Vomiting/Diarrhea General Chief complaint: Nausea/Vomiting/Diarrhea Stated complaint: Nausea Vomiting Diarrhea Time Seen by Provider: 03/21/25 08:51 Source: patient Mode of arrival: ambulatory Limitations: no limitations History of Present Illness ED Provider: ALYCIA FALK PA-C HPI Narrative: 39 year old female with no significant pmhx presents to the ED today for evaluation of nausea and vomiting, followed by upper abdominal pain x5 days. She has not been able to tolerate p.o. intake at home. Now reporting associated headache and dizziness. Patient is a current smoker of cigarettes and marijuana. She typically smokes marijuana 5 times a day however has not been able to smoke this in the last 5 days. Denies blood in vomitus/stool, urinary symptoms, chest pain, shortness of breath, constipation. No history of abdominal surgeries. Denies chance of . Related Data Home Medications ?Medication ?Instructions ?Recorded ?Confirmed cyclobenzaprine 5 mg tablet 5 mg PO TID PRN 03/10/24 1 05/10/23 lidocaine 5 % topical patch 1 patch topical DAILY 02/2003/10/24 medroxyprogesterone 150 mg/mL 150 mg IM [id number] 03/1003/10/24 intramuscular suspension naloxone 4 mg/actuation nasal spray 4 mg intranasal Q2 M PRN 03/10/24 03/10/24 tramadol 50 mg tablet 50 mg PO BID PRN 03/10/24 varenicline tartrate 1 mg tablet 1 mg PO BID 03/10/24 03/10/24 (Chantix) clonidine HCl 0.1 mg tablet 0.1 mg PO BID 10/01/24 mirtazapine 7.5 mg tablet 7.5 mg PO BEDTIME 10/01/24 sertraline 50 mg tablet 50 mg PO DAILY 10/01/24 Previous Rx's ?Medication ?Instructions ?Recorded gabapentin 100 mg capsule 100 mg PO TID 30 days #90 ca ps 03/10/24 prochlorperazine maleate 5 mg 5 mg PO TID PRN nausea a nd 03/21/25 tablet (Compazine) vomiting 3 days #9 tabs Allergies Allergy/AdvReac Type Severity Reaction Status Date / Time No Known Allergies (No Known Allergy Verified 03/21/25 08:08 Allergies*) Review of Systems 2 Review of Systems: Yes all other systems are reviewed and are negative [facility] Past Medical History Attestation statement: The following information was validated with the patient. Source: old records reviewed and nursing notes reviewed Medical History Major depression Physical Exam 2 Vital Signs: Vital Signs: Last Vital Signs Temp 97.9 F 03/21/25 12:18 Pulse 110 H 03/21/25 12:18 Resp 16 03/21/25 12:18 BP 134/95 H 03/21/25 12:18 Pulse Ox 98 03/21/25 12:18 O2 Del Method Room Air 03/21/25 12:18 BMI result Body Mass Index 21.5 hypertensive, tachycardic General: Well appearing, in no acute distress. Skin: Warm, dry, intact. No rashes or lesions. Head: Normocephalic, atraumatic. EENT: Hearing is intact b/l. Conjunctiva clear. Sclera is anicteric. PERRLA. EOM intact. Moist mucous membranes.? Cardiac: Chest wall symmetric. RRR Lungs: Normal respiratory effort without accessory muscle use. CTA bilaterally. Abdomen: Soft, nondistended, tender to palpation of the epigastric and right upper quadrant, no rebound or guarding. Active bowel sounds x4. No CVAT. Back: No midline spinous or paraspinal tenderness. No step off deformity. Ext: Upper and lower extremities atraumatic, without tenderness, deformity, swelling or erythema Neuro: AOx3. Normal speech. Ambulating with steady gait. Course Course Course Narrative: CBC without leukocytosis or left shift. No anemia. H&H stable. Chemistry showing hypokalemia to 3.2, magnesium WNL - likely secondary to vomiting. No MARCIA. Liver function WNL. Urine showing small leukocyte esterase, over 20 squamous epithelial cells and 2+ urine bacteria. Likely contamination as patient denies any urinary symptoms. Urine negative. Negative COVID, flu, RSV. Right upper quadrant ultrasound unremarkable. No evidence of gallbladder disease. > patient medicated with IV Zofran without much effect. Patient endorses significant improvement in nausea after receiving IV Compazine. Has also received IV fluids. She is tolerating p.o.. > she has received 40 meq of potassium for correction. advised to f/u with PCP for repeat labs. > discussed all work up results w/ patient. symptoms likely secondary to marijuana use. I do not have concern for acute intra-abdominal pathology. I do not feel as though CT abdomen/pelvis is warranted at this time. Patient has remained stable throughout ED visit today. Discussed worrisome signs and symptoms and when to return to the ED. All questions answered at this time. Patient is agreeable with disposition and stable for discharge. Medications Administered Discontinued Medications Generic Name Dose Route Start Last Admin Trade Name Fernando PRN Reason Stop Dose Admin Diphenhydramine HCl 12.5 mg 03/21/25 10:42 03/21/25 10:53 Diphenhydramine Hcl 50 Mg/Ml Vial IVPUSH 03/21/25 10:43 12.5 mg ONCE ONE Administration Sodium Chloride 1,000 mls @ 999 mls/hr 03/21/25 09:15 03/21/25 10:38 Ns IV 03/21/25 10:15 Infused .Q1H1M KT Infusion Ondansetron HCl 4 mg 03/21/25 09:10 03/21/25 09:22 Ondansetron Hcl 4 Mg/2 Ml Vial IVPUSH 03/21/25 09:11 4 mg ONCE ONE Administration Potassium Chloride 40 meq 03/21/25 11:59 03/21/25 12:13 Potassium Chloride Packet 20 Meq Packet PO 03/21/25 12:00 40 meq ONCE ONE Administration Prochlorperazine Edisylate 5 mg 03/21/25 10:41 03/21/25 10:53 Prochlorperazine Edisylate 10 Mg/2 Ml Vial IVPUSH 03/21/25 10:42 5 mg ONCE ONE Administration Medical Decision Making Medical Decision Making MDM Narrative: 39 year old female with no significant pmhx presents to the ED today for evaluation of nausea and vomiting, followed by upper abdominal pain x5 days. Vital signs stable. She is generally well-appearing and in no acute distress. On exam, soft, nondistended, tender to palpation of the epigastric and right upper quadrant, no rebound or guarding. Active bowel sounds x4. No CVAT. Differential diagnosis includes biliary colic, renal colic, nephrolithiasis, gastroenteritis, gastritis, PUD, cyclical vomiting syndrome. Abdominal exam without peritoneal signs. No evidence of acute abdomen at this time. Well appearing. Moderate suspicion for acute hepatobiliary disease (including acute cholecystitis). Less likely to represent acute pancreatitis, perforated ulcer/ GI bleed, acute infectious processes (pneumonia, hepatitis, pyelonephritis), atypical appendicitis, vascular catastrophe, bowel obstruction or viscus perforation. Presentation not consistent with other acute, emergent causes of abdominal pain at this time. Plan: labs, UA, pain control, RUQ US, serial reassessment Differential Diagnosis Differential Diagnoses: The differential diagnosis associated with the presentation includes as above. Admission/Observation not indicated. Lab Data MDM Lab Attestation statement: I reviewed the patient's lab results. As above 03/21/25 08:32 03/21/25 08:32 Labs: Lab Results 03/21/25 03/21/25 Range/Units 08:25 08:32 WBC 7.1 (4.8-10.8) X10*3/uL RBC 4.55 (4.20-5.50) X10*6/uL Hgb 13.7 (12.0-16.0) g/dl Hct 40.2 (37.0-47.0) % MCV 88.4 (80.0-98.0) fL MCH 30.1 (27.0-33.0) pg MCHC 34.1 (31.0-35.0) g/dl RDW 12.7 (11.0-16.0) % Plt Count 367 D (160-400) X10*3/uL MPV 9.5 (9.4-12.3) fL Immature Gran % (Auto) 0.3 (0.0-0.4) % Neut % (Auto) 73.7 H (45-73) % Lymph % (Auto) 18.0 L (20-40) % [place] % (Auto) 6.3 (2-11) % Eos % (Auto) 0.6 (0-4) % Baso % (Auto) 1.1 (0-2) % Lymph # (Auto) 1.3 (1.2-4.9) X10*3/uL [place] # (Auto) 0.5 (0.1-1.2) X10*3/uL Eos # (Auto) 0.0 (0.0-0.4) X10*3/uL Baso # (Auto) 0.1 (0.0-0.2) X10*3/uL Abs Immat Gran (auto) 0.02 (0.00-0.03) X10*3/uL Absolute Neuts (auto) 5.2 (2.0-8.3) x10*3/uL Absolute Nucleated RBC 0.000 (0.0-0.012) X10*3/uL Nucleated RBC % (auto) 0.0 (0.0-0.2) /100WBC Sodium 140 (135-145) mmol/L Potassium 3.2 L (3.3-5.1) mmol/L Chloride 105 (96-108) mmol/L Carbon Dioxide 24 (22-29) mmol/L Anion Gap 14 (12-20) BUN 7 L (9-16) mg/dL Creatinine 0.69 (0.5-1.4) mg/dL Estim Creat Clear Calc 77.8 Estimated GFR > 60 Random Glucose 114 (60-115) mg/dL Calcium 9.4 D (8.4-10.2) mg/dL Magnesium 2.2 (1.6-2.6) mg/dL Total Bilirubin 1.0 (0.0-1.0) mg/dL Direct Bilirubin 0.3 (0.0-0.5) mg/dL AST 23 (5-31) U/L ALT 12 (0-31) U/L Alkaline Phosphatase 54 (39-117) U/L Total Protein 7.9 (6.5-8.0) g/dL Albumin 4.9 (3.5-5.0) g/dL Lipase 26 (8-78) U/L Urine Color Dark Yellow Urine Appearance Cloudy Urine pH 8.5 (5.0-9.0) Ur Specific [place] >= 1.030 H (1.005-1.025) Urine Protein 100 (2+) H (Neg-Trace) mg/dL Urine Glucose (UA) Negative (Negative) mg/dL Urine Ketones 40 (Negative) mg/dL Urine Blood Trace H (Negative) Urine Nitrite Negative (Negative) Ur Leukocyte Esterase Small (1+) H (Negative) Urine RBC 0-2 (0-2) /HPF Urine WBC 0-5 (0-5) /HPF Ur Squamous Epith Cells >20 (0-2) /HPF Urine Bacteria 2+ (None Seen) Hyaline Casts 0-2 (0-2) /LPF Urine Test NEGATIVE (NEGATIVE) Influenza Type A (PCR) NEGATIVE (Negative) Influenza Type B (PCR) NEGATIVE (Negative) RSV RNA Qual (PCR) NEGATIVE (Negative) SARS-CoV-2 RNA (RT-PCR) NEGATIVE (Negative) Independent Interpretation I performed an independent interpretation of an: Ultrasound Interpretation: Right upper quadrant ultrasound without gallbladder wall thickening, no gallstones Radiology Impression Discussion of test interpretation with radiology: I have reviewed the radiologist's reading. Radiologist Impression: Procedure(s): US abdomen limited Accession Number(s): [id number] cc: Shahida ToledoP; Alycia Falk~ Reason for Exam: RUQ pain, nausea, vomiting EXAMINATION: US ABDOMEN LIMITED CLINICAL INFORMATION: Right upper quadrant pain, nausea, vomiting. COMPARISON: None available. TECHNIQUE: Real-time imaging of the right upper quadrant abdominal viscera. FINDINGS: PANCREAS: Visualized portions are unremarkable. LIVER: The liver is normal in size. The liver contour is normal. Parenchymal echogenicity is normal. No focal hepatic lesion. There is no intrahepatic biliary duct dilatation seen. Right lobe measures 14 cm. GALLBLADDER: The gallbladder is physiologically distended without evidence of stones, sludge, polyps, wall thickening or pericholecystic fluid. COMMON BILE DUCT: Normal in caliber measuring 0.1 cm in diameter. FREE FLUID: None. US/US abdomen limited IMPRESSION: Unremarkable right upper quadrant ultrasound. Electronically signed by: Simba Contreras MD 03/21/2025 10:24 AM [facility] Record Review External record reviewed: Inpatient record Prescription Management I considered prescription management with: Other (Compazine) Chronic Conditions Patient?s care impacted by: Other (Marijuana dependence) Social Determinants Patient?s care significantly limited by Social Determinants of Health including: Other Social Determinant of Health Critical Care Time Critical Care Time Critical Care Time: No Discharge Plan Discharge Clinical Impression: Nausea & vomiting Patient Disposition: Home, Self-Care Instructions: Acute Nausea and Vomiting (ED), Cannabis Use Disorder (ED) Additional Instructions: You were evaluated in the ED today for nausea and vomiting. Your blood work showed slightly low levels of potassium, likely related to your vomiting. You were given potassium in the ED today. Please follow up with your PCP for repeat blood work to ensure these level stay normal. Your blood work is otherwise reassuring. The ultrasound of your abdomen is normal. There is no evidence of gallbladder disease. Your symptoms improved with medications today. I have suspicion that your symptoms are related to marijuana use. As discussed, you should stop smoking marijuana. Symptoms can last for months following cessation of marijuana use. I am sending you home with compazine to help with your nausea and vomiting. Make sure you are staying hydrated. Return with any new or worsening symptoms. In the case of an emergency call 911. Prescriptions: New prochlorperazine maleate [Compazine] 5 mg tablet 5 mg PO TID PRN (Reason: nausea and vomiting) 3 Days Qty: 9 0RF No Action cyclobenzaprine 5 mg tablet 5 mg PO TID PRN lidocaine 5 % adhesive patch,medicated 1 patch topical DAILY Rx Instructions: leave on most painful area for up to 12 hrs medroxyprogesterone 150 mg/mL suspension 150 mg IM [id number] naloxone 4 mg/actuation spray,non-aerosol 4 mg intranasal Q2M PRN Rx Instructions: spray 1 dose into ONE nostril; alternate nostrils w each dose until help arrives tramadol 50 mg tablet 50 mg PO BID PRN varenicline tartrate [Chantix] 1 mg tablet 1 mg PO BID gabapentin 100 mg capsule 100 mg PO TID 30 Days Qty: 90 0RF sertraline 50 mg tablet 50 mg PO DAILY clonidine HCl 0.1 mg tablet 0.1 mg PO BID mirtazapine 7.5 mg tablet 7.5 mg PO BEDTIME Referrals: Shahida Toledo FNP [Primary Care Provider, Family Practice] Interventions: ED Discharge Assessment Last Done: 03/21/25 12:18 Discharge Date/Time: 03/21/25 12:18 Print Language: Citizen Of [place]
--- NOTE | 2025-03-21 09:26 | PC.NURSE ---
20gIV placed to left AC - labs obtained/sent to lab. IVF/medication administered per provider order. effectiveness pending. pt pending US to be completed. plan of care ongoing. call morgan placed within reach.
--- OUTSIDE RECORDS SUMMARY | 2025-03-21 09:38 | XMS_ITS | Encounter Summary ---
Author Organization [employer] Address [address] [place] [address] Care Team Providers Care Mechanism Assembler Name Role Phone Shahida Toledo ENGINEER INTERN Primary Care Provider [phone] Encounter Details Date Type Department Care Team ([facility] st Contact Info) Description 11/22/2024 Orders Only [facility] MEDICINE [address] [place], [place] [phone] More Wong MD [address] [place], [place] [phone] Social History Tobacco Use Types Packs/Day Years [...] Upcoming Encounters Date Type Department Care Team ([facility] st Contact Info) Description 04/27/2025 9:00 AM EST Clinical Support [facility] MED & PEDS [address] [place] [address] Isabella Tadeo RN [address] [place] [address] 05/02/2025 9:30 AM EST Clinical Support [facility] [address] [place] [address] documented as of this encounter Visit Diagnoses Not on filedocumented in this encounter Additional Health Concerns Assessment Noted Time PHQ-9 Depression Total Score: 12 025 9:14 AM EDT documented as of this encounter Care Teams Mechanism Assembler Relationship Specialty Start Date End Date Shahida Toledo FNP [address] [place] [id number] PCP - General Family Medicine 12/26/21 documented as of this encounter
--- OUTSIDE RECORDS SUMMARY | 2025-03-21 09:38 | XMS_ITS | Encounter Summary ---
Author Organization [employer] Address [address] [facility] [address] [place] [address] Care Team Providers Care Hand Binder Stripper Name Role Phone Shahida Toledo Primary Care Provider [phone] Reason for Visit * Reason Onset Date Comments Appointment Request 08/19/2024 Encounter Details Date Type Department Care Team ([facility] Contact Info) Description 08/19/2024 Telephone [facility] MEDICINE [address] [place] [address] Shahida Toledo FNP [address] [place] [address] Appointment Request Social History Tobacco Use Types [...] Depo appt from 08/18/24. Contact pt at [phone] documented in this encounter Plan of Treatment Upcoming Encounters Date Type Department Care Team ([facility] st Contact Info) Description 04/27/2025 9:00 AM EST Clinical Support [facility] MED [facility] PED[facility] [address] [place] [address] Isabella Tadeo RN [address] [place] [address] 05/02/2025 9:30 AM EST Clinical Support [facility] [address] [place] [address] documented as of this encounter Visit Diagnoses Not on filedocumented in this encounter Additional Health Concerns Assessment Noted Time PHQ-9 Depression Total Score: 11 024 8:48 AM EDT documented as of this encounter Care Teams Hand Binder Stripper Relationship Specialty Start Date End Date Shahida Toledo FNP [address] [place] [address] PCP - General Family Medicine 12/26/21 documented as of this encounter
--- OUTSIDE RECORDS SUMMARY | 2025-03-21 09:38 | XMS_ITS | Encounter Summary ---
Author Organization [employer] Address [address] [address] [place] [address] Care Team Providers Care Plastering Contractor Name Role Phone Shahida Toledo Primary Care Provider [phone] Reason for Visit * Reason Comments Med Refill Encounter Details Date Type Department Care Team ([facility] Contact Info) Description 09/17/2022 Refill [facility] MEDICINE [address] [place] [address] Shahida Toledo FNP [address] [place] [address] Other chronic pain; Chronic low back pain, [...] Department Care Team (Late Contact Info) Description 04/27/2025 9:00 AM EST Clinical Support [facility] MED & PEDS [address] [place] [address] Isabella Tadeo, RN [address] [place] [address] 05/02/2025 9:30 AM EST Clinical Support [facility] [address] [place] [address] documented as of this encounter Visit Diagnoses Diagnosis Other chronic pain Chronic low back pain, unspecified back pain laterality, unspecified whether sciatica present documented in this encounter Additional Health Concerns Assessment Noted Time PHQ-9 Depression Total Score: 10 023 9:01 AM EDT documented as of this encounter Care Teams Plastering Contractor Relationship Specialty Start Date End Date Shahida Toledo FNP [address] [place] [phone] PCP - General Family Medicine 12/26/21 documented as of this encounter
--- OUTSIDE RECORDS SUMMARY | 2025-03-21 09:39 | XMS_ITS | Encounter Summary ---
Author Organization [employer] Address [address] [facility] [place] [address] Care Team Providers Care Machine Stuffer Name Role Phone Shahida Toledo Primary Care Provider [phone] Reason for Visit * Reason Onset Date Comments Appointment Request 06/30/2024 Encounter Details Date Type Department Care Team ([facility] Contact Info) Description 06/30/2024 Telephone [facility] MEDICINE [address] [place] [address] Shahida Toledo FNP [address] [place] [address] Appointment Request Social History Tobacco Use Types [...] R/s Appt from 07/01/24. Contact pt at [phone] documented in this encounter Plan of Treatment Upcoming Encounters Date Type Department Care Team (Late st Contact Info) Description 04/27/2025 9:00 AM EST Clinical Support [facility] MED & PEDS [address] [place] [address] Isabella Tadeo RN [address] [place] [address] 05/02/2025 9:30 AM EST Clinical Support [facility] MED & PEDS [address] [place] [address] documented as of this encounter Visit Diagnoses Not on filedocumented in this encounter Additional Health Concerns Assessment Noted Time PHQ-9 Depression Total Score: 11 024 8:48 AM EDT documented as of this encounter Care Teams Machine Stuffer Relationship Specialty Start Date End Date Shahida Toledo FNP [address] [place] [address] PCP - General Family Medicine 12/26/21 documented as of this encounter
--- OUTSIDE RECORDS SUMMARY | 2025-03-21 09:39 | XMS_ITS | Clinical Summary ---
Author Organization [employer] Address [address] [place] [address] Care Team Providers Care Blind Eyeletter Name Role Phone Shahida Toledo KAMILA Primary Care Provider [phone] Allergies No known active allergies Medications * [...] back pain laterality, unspecified whether sciatica present Take 1 tablet (50 mg) by mouth every 12 (twelve) hours if needed for severe pain. 45 tablet 025 Active traMADol (Ultram) 50 MG tabletIndication s:Other chronic pain,Chronic low back pain, unspecified back pain laterality, unspecified whether sciatica present TAKE 1 TABLET BY MOUTH TWICE DAILY IN THE MORNING AND AT BEDTIME NEEDED FOR SEVERE PAIN 45 tablet 025 2024 Discontinued(R eorder (will not trigger notification to Pharmacy)) Hospital, Clinic, or Other Facility Administered Medication Ordered Dose Route Frequency Start Date End Date Status medroxyPROGESTERone (Depo-Provera) injection 150 mgIndications:Depo-Pro vera contraceptive status 150 mg IM Every 3 months 05/14/2024 05/09/2025 Active Active Problems Problem Noted Date Diagnosed Date Thoracic spondylosis 10/29/2024 Assessment & Plan (10/29/2024 8:48 AM EDT): See M54.5 Myofascial low back pain 03/15/2024 Overview (10/29/2024): Following with [facility] Pain Management - [employer] 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 Following with SEARCH ENGINE OPTIMIZATION ANALYST RN Cyclobenzaprine 5mg TID PRN lidocaine patches [...] office -Referral to physical therapy ([facility] in [place]) -Recommended [facility] acupuncture clinic -Referral to 01/19/24 [...] office -Referral to physical therapy ([facility] in [place]) -Recommended [facility] acupuncture clinic -Referral to [facility] 01/19/24 -Referral to Pain Medicine 01/19/24 Vitamin D deficiency 02/16/2024 Overview (02/16/2024): Started on Vit D 50,000 weekly x 8 weeks on 02/16/24 Lab Results Component Value Date [id number] 5.5 (L) 02/06/2024 Anxiety 02/05/2024 Assessment & Plan (10/29/2024 12:55 PM EDT): : Following w/ therapist every 2-3 weeks Psych prescriber: ROHITH BENAVIDES APRN Current medication regimen includes sertraline, mirtazapine, and clonidine Denies any acute safety concerns, engaged with care Intermittent chest pain 01/25/2024 Overview (10/29/2024): [facility] consult Feb 2024 EKG NSR, plan for treadmill stress test Assessment & Plan (10/29/2024 12:19 PM EDT): Reports stress test result was normal, [facility] Assessment & Plan (01/25/2024 7:59 PM [...] 39y/o Last PE: 01/19/24 OPH: following with [facility] Eye Care Dental: established with [...] chronic low back pain, generalized arthralgias Last SEARCH ENGINE OPTIMIZATION ANALYST Agreement: 04/24/23 Tier III (SEARCH ENGINE OPTIMIZATION ANALYST visit every 4 months) Assessment & Plan [...] office -Referral to physical therapy ([facility] in [place]) -Recommended [facility] acupuncture clinic -Referral to 01/19/24 [...] office -Referral to physical therapy ([facility] in [place]) -Recommended [facility] acupuncture clinic Assessment & Plan [...] dental office -Referral to physical therapy -Recommended [facility] acupuncture clinic Assessment & Plan [...] to new PT location -Pt will trial [facility] acupuncture clinic (recommended at least [...] Encounters Date Type Department Care Team Description 03/08/2025 Refill [facility] [address] [place] [address] Shahida Toledo, CONSERVATOR [employer]S Other chronic pain; Chronic low back pain, unspecified back pain laterality, unspecified whether sciatica present 02/07/2025 1:00 PM EDT Office Visit [facility] [address] [place] [address] GeLondon toddn, OD Myopia of both eyes (Primary Dx) 02/07/2025 9:30 AM EDT Clinical Support [facility] [address] [place] [address] April Jimenes RN Encounter for Depo-Provera contraception 02/07/2025 Travel 01/17/2025 Refill [facility] [address] [place] [address] Shahida Toledo, CON[employer]ATOR [employer] Other chronic pain; Chronic low back pain, unspecified back pain laterality, unspecified whether sciatica present 01/17/2025 Refill [facility] [address] [place] [address] Shahida Toledo, CON[employer]ATOR [employer] 01/07/2025 10:30 AM EDT Office Visit [facility] [address] [place] [address] London Carolinan, OD 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); Dry eyes; Myopia of both eyes 01/07/2025 Travel 12/23/2024 9:00 AM EDT Clinical Support [facility] [address] [place] [address] Isabella Tadeo RN Chronic low back pain, unspecified back pain laterality, unspecified whether sciatica present 12/23/2024 Refill [facility] [address] [place] [address] Isabella Tadeo RN 12/23/2024 Travel 12/21/2024 Refill [facility] [address] [place] [address] Shahida Toledo, [employer]ATOR [employer] Other chronic pain; Chronic low back pain, [...] Description 04/27/2025 9:00 AM EST Clinical Support [facility] [address] [place] [address] Isabella Tadeo, RN [address] [place] [address] 05/02/2025 9:30 AM EST Clinical Support [facility] [address] [place] [address] Health Maintenance Due Date Last Done Comments Alcohol/Substance Use Screening 1996 Family Planning (PISQ) 07/17/1999 HPV Vaccines (1 - 3-dose series) 07/17/1999 Mammogram 2024 COVID-19 Vaccine ( season) 2024 01/19/2024, 09/05/2022, 11/30/2021, Additional history exists Influenza Vaccine (#1) 2024 01/19/2024 SDOH Screening 01/11/2025 01/12/2024 Pap Smear 01/23/2025 01/23/2022 Tobacco Screening 03/15/2025 03/15/2024 Depression Monitoring 05/01/2025 10/29/2024, 025 Disability Screening 12/16/2025 12/16/2024 Cervical Cancer Screening 01/23/2027 HPV/Cotest 01/23/2027 01/23/2022 DTaP/Tdap/Td Vaccines (2 - Td or Tdap) 09/05/2032 09/05/2022 Zoster Vaccines (1 of 2) 2034 RSV Patients and Patients Aged 60 years or older (1 - 1-dose 75+ series) 07/17/2059 Pneumococcal Vaccine: Pediatrics (0 to 5 Years) [...] back pain laterality, unspecified whether sciatica present HEPATITIS C VIRAL RNA, QUANTITATIVE, REAL-TIME PCR [...] Urine Drug Screen (12/23/2024 8:51 AM EDT) Pathologist [facility]C Positive(A) Negative Cocaine Screen, Urine Negative [...] Unknown 12/23/2024 8:51 AM EDT Narrative Isabella Tadeo, ARCHANA - 12/23/2024 8:51 AM EDT Internal Pass Control Lot# [id number] Exp: 02-18-26 Shahida Tre [employer]ATOR [employer] POINT OF CARE TEST ENTER/EDIT ORDERABLES Final Result * Hepatitis C Viral RNA, Quantitative, Real-Time PCR (02/06/2024 7:57 AM EDT) [facility] Hepatitis C Viral Load <15 NOT DETECTED NOT DETECTED IU/mL [facility] HCV Log PCR <1.18 NOT DETECTED NOT DETECTED Log IU/mL [facility] Comment:For additional infor delisa, please refer tohttp://education.Liquid Scenarios/faq/MTW49s1(This link is being provided for informational/educational purposes only.)THIS TEST WAS PERFORMED AT:[facility] [place] [id number] SALAZAR MD Blood 02/06/2024 7:57 AM EDT 02/06/2024 7:57 AM EDT Shahida Toledo [facility] BLOOD ORDERABLES Final Res ult Performing Organization Address [facility] Co de Phone Number [facility] [address] [place] [address] [phone] * HIV-1/2 Antigen and Antibodies, Fourth Generation, with Reflexes (02/06/2024 7:57 AM EDT) HIV AB/AG Nonreactive Nonreactive [facility] Comment:HIV-1 p24 Ag and/or HIV-1/HIV-2 Ab not detected.A test result that is nonreactive does not exclude thepossibility of exposure to or infection with HIV-1 and/orHIV-2. Nonreactive results in this assay for individualswith prior exposure to HIV-1 and/or HIV-2 may be due toantigen and antibody levels that are below the limit ofdetection of this assay.The [employer] HIV Ag/Ab Combo assay result andsupplemental assay results should be interpreted inconjunction with the patient's clinical presentation,history and other laboratory results. If the results areinconsistent with clinical evidence, additional testing issuggested to confirm the result. Blood Venous blood specimen / Unknown 02/06/2024 7:57 AM EDT 02/06/2024 7:57 AM EDT Shahida Toledo [facility] BLOOD ORDERABLES Final Res ult Performing Organization Address [facility] Co de Phone Number [facility] [address] [place] [address] [phone] THINPREP TIS PAP AND HPV [...] with computer assisted technology. [facility] Film Replacement Orderer : SEE COMMENT [facility] Comment: WAC, CT(ASCP) CT screening location: [place] [address] HPV nRNA E6/E7 Not Detected Not Detected [facility] Comment: Methodology: Director Dance-Mediated Amplification This assay detects E6/E7 viral messenger RNA (mRNA) from 14 high-risk HPV types (16,18,31,33,35,39,45,51,52,56,58,59,66,68). Cervical sources are required for HPV testing. If a vaginal source from a patient who has had a total hysterectomy with removal of cervix was submitted, please contact the testing laboratory for alternative testing options. For additional information, please refer to http://education.Liquid Scenarios/faq/AOH889m5 (This link if provided for information/ educational [...] for evaluation. Endocervical/transformation zone component present. 01/23/2022 2:0 6 PM EDT Shahida Toledo [employer] LAB PATHOLOGY ORDERABLES Final Result CONVERT[facility]GACY [facility]S from Last 3 Months or Most Recently Relevant to Health Maintenance Insurance [facility] C3 Care Teams Blind Eyeletter Relationship Specialty Start Date End Date Shahida Toledo FNP [address] [place] [id number] PCP - General Family Medicine 12/26/21
[2025-03-21 09:58] LABS: Resp Syncy Virus RNA Qual PCR NEGATIVE (Negative); SARS COV2 PCR INHOUSE NEGATIVE (Negative)
[2025-03-21 10:30] VITALS: BP 116/80; PULSE 90; RESP 16; TEMP 36.6; O2SAT 98
--- NOTE | 2025-03-21 10:54 | PC.NURSE ---
pt reporting increased nausea despite previous medication administration. provider notified/aware. additional medication administered per provider order. effectiveness pending.
[2025-03-21 11:45] LABS: Magnesium 2.2 mg/dL (1.6-2.6)
[2025-03-21] MEDS: Potassium Chloride Packet 20 MEQ PACKET 40 MEQ PO (12:13)
[2025-03-21 12:18] VITALS: BP 134/95; PULSE 110; RESP 16; TEMP 36.6; O2SAT 98
== END 2025-03-21 12:18 | disposition home or self-care (01) ==
PROVIDERS: Physician Assistant Medical; Emergency Provider Emergency Medicine Emergency Medical Services; PCP Registered Nurse
DX: R11.2 Nausea with vomiting, unspecified (principal); E87.6 Hypokalemia; F12.90 Cannabis use, unspecified, uncomplicated; F17.210 Nicotine dependence, cigarettes, uncomplicated
CPT/HCPCS: 76705; 80048; 80076; 81001; 81025; 83690; 83735; 85025; 87086; 87637; 96361; 96374; 96375; 99284; J0737; J1200; J2405

== ENCOUNTER → 2025-03-21 09:22 | Outpatient (BNV) | payer MEDICAID, SELFPAY | PROVIDERS: Emergency Provider Emergency Medicine Emergency Medical Services; PCP Registered Nurse; Visit Provider Radiology Diagnostic Radiology | DX: R10.11 Right upper quadrant pain (principal); R11.2 Nausea with vomiting, unspecified | CPT/HCPCS: 76705 ==